=== PATIENT | female | born 1990 | race Caucasian/White ===

== ENCOUNTER → 2017-03-21 | Outpatient (CLI) | payer BC, OTHER ==
[~2017-03-21] MED LIST: DOXY100C2 PO; PREN1TAB39; SULF-109 PO
--- NOTE | 2017-03-21 08:02 | Diagnostic Imaging Report ---
PROCEDURE: US abdomen complete. TECHNIQUE: Multiple real-time grayscale images were obtained over the abdomen in various projections. INDICATION: Generalized abdominal pain. FINDINGS: There is a rather well circumscribed echogenic area within the medial aspect of the right lobe of the liver measuring 1.4 cm. The liver otherwise appears normal. The gallbladder and bile ducts are normal. Common duct measures 3 mm. Pancreas is normal. Spleen is mildly enlarged at 13 cm. Aorta and vena cava appear normal. The right kidney measures 10 x 4.5 x 6.1 cm. The left kidney measures 11.6 x 5.4 x 5 cm. There is no hydronephrosis. No calculi are demonstrated. There is no ascites. Color Doppler imaging shows normal portal hepatic flow. IMPRESSION: 1. Probable hemangioma within the right lobe of the liver measuring 1.4 cm. 2. Question of mild splenomegaly. Dictated by: Dictated on workstation # [id number]
== END ==
LOC: RAD 07:06
PROVIDERS: ATTEND Nurse Practitioner Family
DX: K76.9 Liver disease, unspecified (principal); R10.84 Generalized abdominal pain
CPT/HCPCS: 76700

== ENCOUNTER → 2017-05-25 | Outpatient (CLI) | payer OTHER ==
[~2017-05-25] MED LIST changes: +CATHETER FLUSH 10 ML SYR IV PRN
--- NOTE | 2017-05-25 12:24 | Diagnostic Imaging Report ---
INDICATION: Abdominal pain. Hepatobiliary scan. 4.63 mCi of Tc99m Choletec was given for the scan. A can of Ensure was given at 60 minutes into the study. There is homogeneous uptake of isotope throughout the liver. Cystic duct and common duct are both patent. The gallbladder ejection fraction is calculated at 94%. IMPRESSION: Normal hepatobiliary scan and gallbladder ejection. Dictated by: Dictated on workstation # [id number]
== END ==
LOC: CARD 09:25
PROVIDERS: ATTEND Nurse Practitioner Community Health
DX: R11.2 Nausea with vomiting, unspecified (principal)
CPT/HCPCS: 78227

== ENCOUNTER 2017-09-03 11:08 | Emergency (ER) | payer OTHER ==
[~2017-09-03] VITALS: Ht 152.4 cm; Wt 90.7 kg
[~2017-09-03 11:08] MED LIST changes: -CATHETER FLUSH 10 ML SYR IV PRN
[2017-09-03] MEDS ORDERED: NORG1TAB83 (11:40)
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
[2017-09-03 12:43] VITALS: BP 140/70
--- OUTSIDE RECORDS SUMMARY | 2017-09-03 12:59 | XMS REPORT ---
Author Author TANIA MURRELL Organization [facility] Address [address] [place] [address] Care Team Providers Care Financial Compliance Manager Name Role Phone MILO MURRELLNETTE Unavailable PROBLEMS Type Condition ICD9-CM Code QBR48-VN Code Onset Dates Condition Status SNOMED Code Problem Epigastric pain R10.13 Active 06950216 Problem Generalized abdominal pain R10.84 Active 605030996 Problem Allergic asthma, mild intermittent, uncomplicated J45.20 Active 107736431 Problem History of migraine headaches Z86.69 Active 614502902 Problem Dyspepsia R10.13 Active 973034760 Problem Dental examination Z01.20 Active 361094229 ALLERGIES No Information SOCIAL HISTORY Never Assessed PLAN OF CARE VITAL SIGNS MEDICATIONS Unknown Medications RESULTS No Results PROCEDURES Procedure Date Ordered Result Body Site TORADOL (IM) 60 MG/2ML (UP TO 15 MG) Oct 31, 2016 THER/PROPH/DIAG INJ, SC/IM Oct 31, 2016 PHENERGAN 50MG/ML Oct 31, 2016 IMMUNIZATIONS Vaccine Route Administration Date Status PHENERGAN 50MG/ML IM Intramuscular Oct 31, 2016 Administered TORADOL (IM) 60 MG/2ML (UP TO 15 MG) IM Intramuscular Oct 31, 2016 Administered MEDICAL (GENERAL) HISTORY Type Description Date Medical History idiopathic intracranial hypertension Surgical History section 2009 Surgical History right shoulder surgery (scope) 2005 Hospitalization History surgery
--- OUTSIDE RECORDS SUMMARY | 2017-09-03 12:59 | XMS REPORT ---
Author Author KARLY ENGEL Organization [employer] Address Unknown Phone Unavailable Care Team Providers Care Business Process Associate Name Role Phone KARLY ENGEL CP Unavailable Allergies, Adverse Reactions, Alerts Substance Reaction Event Type Cephalexin Info Not Available Drug Allergy Problems Problem Type Condition Code Onset Dates Condition Status Problem Wheezing 786.07 Active Problem Sinusitis 473.9 Active Problem Environmental allergies V15.09 Active Problem Pain in joint, shoulder region 719.41 Active Assessment Nonintractable migraine, unspecified migraine type G43.009 Active Medications Medication Code System Code Instructions Start Date End Date Status Dosage Fioricet [facility] [address]-91 50-325-40 MG Orally every 4 hrs 1 tablet as needed Albuterol Sulfate HFA [facility] [address]-02 108 (90 Base) MCG/ACT Inhalation every 4 hrs May 03, 2015 2 puffs as needed Nexplanon [facility] [address]-45 68 MG Subcutaneous not defined AcetaZOLAMIDE [facility] [address]-27 250 MG Orally 2 times a day 4 tablets Contrave [facility] [address]-16 8-90 MG Orally at hs for 7 days then 1tab bid for 7 days then 2 tabs in AM and 1 in PM for 7 days then 2 tabs bid Aug 05, 2015 1 tablet daily Procedures Procedure Coding System Code Date TORADOL (IM) 60 MG/2ML (UP TO 15 MG) CPT-4 J1885 Aug 26, 2015 THER/PROPH/DIAG INJ, SC/IM CPT-4 84777 Aug 26, 2015 Office Visit, Est Pt., Level 3 CPT-4 01049 Aug 26, 2015 Vital Signs Date/Time: Aug 26, 2015 Temperature 97 F Weight 188 lbs Height 64 in BMI 32.27 Index Blood Pressure Diastolic 86 mmHg Blood Pressure Systolic 126 mmHg Cardiac Monitoring Heart Rate 86 bpm Results No Known Results Summary Purpose [employer] Submission
--- OUTSIDE RECORDS SUMMARY | 2017-09-03 12:59 | XMS REPORT | Clinical Summary ---
Author Author [facility] Organization [facility] Address Unknown Phone Unavailable Care Team Providers Care Smooth Stucco Resurfacer Name Role Phone PCP Unavailable Source Comments Some departments are not documenting in the electronic medical record. If you do not see the information that you expected, contact Release of Information in the Health Information Management department at [phone] for further assistance in locating additional records.[facility] Allergies Active Allergy Reactions Severity Noted Date Comments Cephalexin RASH 06/29/2014 Current Medications Prescription Sig. Disp. Refills Start End Date Status Date NORGESTIMATE-ETHINYL Take by mouth. Active ESTRADIOL (ORTHO-CYCLEN (28) PO) acetaZOLAMIDE (DIAMOX) Take 4 Tabs by mouth 240 Tab 6 12/08/19 Active 250 mg tablet twice daily. 15 naltrexone-bupropion Take by mouth. Active (CONTRAVE) 8-90 mg TbER Butalbital-Acetaminophen- Take by mouth. 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 Sex Assigned at Date Recorded Not on file Last Filed Vital Signs Vital Sign Reading Time Taken Blood Pressure 120/84 11/18/2014 3:05 PM [employer] Pulse 88 11/18/2014 3:05 PM [employer] DIRECT[employer] Temperature 36.8 C (98.2 F) 07/10/2014 8:30 AM CDT Respiratory Rate - - Oxygen Saturation 98% 07/10/2014 10:00 AM CDT Inhaled Oxygen - - Concentration Weight 81.4 kg (179 lb 7.3 oz) 03/02/2016 3:03 PM CDT Height 167.6 cm (5' 6") 03/02/2016 3:03 PM CDT Body Mass Index 28.96 03/02/2016 3:03 PM CDT Plan of Treatment Health Maintenance Due Date Last Done Comments PHYSICAL (COMPREHENSIVE) 1995 EXAM PERTUSSIS VACCINE 1999 TETANUS VACCINE 2005 CERVICAL CANCER SCREENING 2009 INFLUENZA VACCINE 04/17/2017 Results Not on filefrom Last 3 Months
--- OUTSIDE RECORDS SUMMARY | 2017-09-03 12:59 | XMS REPORT ---
Author Author MELANIE COPELAND Organization [employer] Address Unknown Phone Unavailable Care Team Providers Care Guitar Player Name Role Phone MELANIE COPELAND CP Unavailable Allergies No Known Allergies Problems Problem Type Condition Code Onset Dates Condition Status Problem Wheezing 786.07 Active Problem Sinusitis 473.9 Active Problem Environmental allergies V15.09 Active Assessment Hepatitis A vaccination not up to date Z28.3 Active Problem Pain in joint, shoulder region 719.41 Active Assessment Need for meningococcus vaccine Z23 Active Medications No Known Medications Procedures Procedure Coding System Code Date MENINGOCOCCAL (MENVEO) CPT-4 63196 Jul 02, 2015 SINGLE IMMUNIZATION ADMIN CPT-4 62170 Jul 02, 2015 HEP A (ADULT) CPT-4 35289 Jul 02, 2015 IMMUNIZATION ADMIN, EACH ADD (please include units) CPT-4 73304 Jul 02, 2015 Results No Known Results Immunizations Vaccine Administration Date HEP A (ADULT) Jul 02, 2015 MENINGOCOCCAL (MENVEO) Jul 02, 2015 Summary Purpose [employer] Submission
--- OUTSIDE RECORDS SUMMARY | 2017-09-03 12:59 | XMS REPORT ---
Author Author MELANIE COPELAND [facility] Address [address] [place] [address] Care Team Providers Care Paper Products Supervisor Name Role Phone MELANIE COPELAND Unavailable PROBLEMS Type Condition ICD9-CM Code OKE78-BH Code Onset Dates Condition Status SNOMED Code Problem History of migraine headaches Z86.69 Active 440283378 Problem Seasonal allergic rhinitis, unspecified chronicity, unspecified trigger J30.2 Active 987163880 Problem Dyspepsia R10.13 Active 439445397 Problem Dental examination Z01.20 Active 076333132 Problem Allergic asthma, mild intermittent, uncomplicated J45.20 Active 664415524 Problem Epigastric pain R10.13 Active 74058344 Problem Generalized abdominal pain R10.84 Active 728248440 ALLERGIES Substance Reaction Event Type Date Status Cephalexin Unknown Drug Allergy January, Active SOCIAL HISTORY Never Assessed PLAN OF CARE Activity Details Follow Up prn Reason: VITAL SIGNS Height 64 in 2017-02-05 Weight 208.1 lbs 2017-02-05 Temperature 98.2 degrees Fahrenheit 2017-02-05 Heart Rate 76 bpm 2017-02-05 Respiratory Rate 20 2017-02-05 BMI 35.72 kg/m2 2017-02-05 Blood pressure systolic 116 mmHg 2017-02-05 Blood pressure diastolic 74 mmHg 2017-02-05 MEDICATIONS Medication Instructions Dosage Frequency Start Date End Date Duration Status Fioricet 50-325-40 MG Orally every 4 hrs 1 tablet as needed 4h Active Zofran ODT 8 MG Orally every 8 hrs 1 tablet on the tongue and allow to dissolve as needed for nausea 8h January, 10 days Active Nexplanon 68 MG Active Pepcid 20 mg Orally twice a day 1 tablet 12h January, 10 days Active Cyclobenzaprine HCl 10 mg Orally Once a day at nite 1 tablet Aug, Active Proventil HFA 108 (90 Base) MCG/ACT Inhalation every 4 hrs 2 puffs as needed 4h Active RESULTS No Results PROCEDURES No Known procedures IMMUNIZATIONS No Known Immunizations MEDICAL (GENERAL) HISTORY Type Description Date Medical History idiopathic intracranial hypertension Surgical History section 2009 Surgical History right shoulder surgery (scope) 2005 Hospitalization History surgery
--- OUTSIDE RECORDS SUMMARY | 2017-09-03 12:59 | XMS REPORT ---
Author Author KIEL KEYLA Organization [facility] Address [address] [place] [address] Care Team Providers Care Websphere Consultant Name Role Phone KEYLA DYSON Unavailable PROBLEMS Type Condition ICD9-CM Code MFA03-FM Code Onset Dates Condition Status SNOMED Code Problem Epigastric pain R10.13 Active 60966479 Problem Generalized abdominal pain R10.84 Active 011097793 Problem Allergic asthma, mild intermittent, uncomplicated J45.20 Active 858059595 Problem History of migraine headaches Z86.69 Active 849968601 Problem Dyspepsia R10.13 Active 982498004 Problem Dental examination Z01.20 Active 246300780 ALLERGIES Substance Reaction Event Type Date Status Cephalexin Unknown Drug Allergy Sep, Active SOCIAL HISTORY No smoking Hx information available PLAN OF CARE Activity Details Follow Up prn Reason: VITAL SIGNS Height 64 in 2016-10-02 Weight 194.8 lbs 2016-10-02 Temperature 97.9 degrees Fahrenheit 2016-10-02 Heart Rate 100 bpm 2016-10-02 Respiratory Rate 20 2016-10-02 BMI 33.43 kg/m2 2016-10-02 Blood pressure systolic 124 mmHg 2016-10-02 Blood pressure diastolic 88 mmHg 2016-10-02 MEDICATIONS Medication Instructions Dosage Frequency Start Date End Date Duration Status Nexplanon 68 MG Active Fioricet 50-325-40 MG Orally every 4 hrs 1 tablet as needed 4h Active Ibuprofen 800 MG Orally Three times a day 1 tablet 8h Sep,Oct 30 day(s) Active PredniSONE 10 mg Orally Once a day 4 tabs x 4 days, 3 tabs x 4 days, 2 tabs x 4 days, 1 tab x 1 days 24h Sep, Oct, 16 days Active Proventil HFA 108 (90 Base) MCG/ACT Inhalation every 4 hrs 2 puffs as needed 4h Active Cyclobenzaprine HCl 10 mg Orally Once a day at nite 1 tablet Aug, Active Tessalon Perles 100 MG Orally Three times a day 1 capsule as needed 8h Sep, Sep, 14 days Active RESULTS No Results PROCEDURES Procedure Date Ordered Related Diagnosis Body Site Office Visit, Est Pt., Level 3 Oct 02, 2016 IMMUNIZATIONS No Known Immunizations
--- OUTSIDE RECORDS SUMMARY | 2017-09-03 12:59 | XMS REPORT ---
Author ANA Ortega [facility] [employer] Address Unknown Phone Unavailable Care Team Providers Care Carriage Rider Name Role Phone ANA OSWALD CP Unavailable Allergies, Adverse Reactions, Alerts Substance Reaction Event Type Cephalexin Info Not Available Drug Allergy Problems Problem Type Condition Code Onset Dates Condition Status Problem History of migraine headaches Z86.69 Active Assessment Bronchitis J40 Active Problem Allergic asthma, mild intermittent, uncomplicated J45.20 Active Medications Medication Code System Code Instructions Start Date End Date Status Dosage Proventil HFA [facility] [address]-26 108 (90 Base) MCG/ACT Inhalation every 4 hrs 2 puffs as needed Zofran [facility] [address]-06 4 MG Orally 3 times a day as needed for nausea/ vomiting Sep 29, 2015 1 tablet Fioricet [facility] [address]-61 50-325-40 MG Orally every 4 hrs 1 tablet as needed Contrave [facility] [address]-02 8-90 MG Orally Aug 05, 2015 2 tabs twice a day Zithromax Z-Asael [facility] [address]-19 250 MG Orally Once a day Jul 11, 2016 Jul 16, 2016 2 tablets on the first day, then 1 tablet daily for 4 days Nexplanon [facility] [address]-36 68 MG Subcutaneous not defined Procedures Procedure Coding System Code Date Office Visit, Est Pt., Level 2 CPT-4 85577 Jul 11, 2016 Vital Signs Date/Time: Jul 11, 2016 Cardiac Monitoring Heart Rate 90 bpm Weight 186 lbs Height 64 in BMI 31.92 Index Blood Pressure Diastolic 78 mmHg Blood Pressure Systolic 100 mmHg Results No Known Results Summary Purpose [employer] Submission
--- OUTSIDE RECORDS SUMMARY | 2017-09-03 12:59 | XMS REPORT ---
Author Author DANO CHUN Organization [employer] Address Unknown Phone Unavailable Care Team Providers Care Surgical Technician Name Role Phone DANO CHUN CP Unavailable Allergies, Adverse Reactions, Alerts Substance Reaction Event Type Cephalexin Info Not Available Drug Allergy Problems Problem Type Condition Code Onset Dates Condition Status Problem Wheezing 786.07 Active Problem Sinusitis 473.9 Active Problem Environmental allergies V15.09 Active Problem Pain in joint, shoulder region 719.41 Active Assessment Dental examination Z01.20 Active Medications Medication Code System Code Instructions Start Date End Date Status Dosage AcetaZOLAMIDE [facility] [address]-17 250 MG Orally 2 times a day 4 tablets Nexplanon [facility] [address]-79 68 MG Subcutaneous not defined Albuterol Sulfate HFA [facility] [address]-19 108 (90 Base) MCG/ACT Inhalation every 4 hrs May 03, 2015 2 puffs as needed Procedures Procedure Coding System Code Date Billing Notes on claim CPT-4 EC109 Aug 02, 2015 [employer] Employee/Board adjustment CPT-4 [facility] Aug 02, 2015 [facility] SURFAC[facility] PRIMARY/PERM CPT-4 D2150 Aug 02, 2015 Vital Signs Date/Time: Aug 02, 2015 Blood Pressure Diastolic 83 mmHg Blood Pressure Systolic 126 mmHg Results No Known Results Summary Purpose [employer] Submission
--- OUTSIDE RECORDS SUMMARY | 2017-09-03 12:59 | XMS REPORT ---
Author Author JULIA MALIK Organization [facility] Address [address] [place] [address] Care Team Providers Care Rn Employee Health Name Role Phone JULIA MALIK Unavailable PROBLEMS Type Condition ICD9-CM Code [id number] Code Onset Dates Condition Status SNOMED Code Problem History of migraine headaches Z86.69 Active 547336888 Problem Seasonal allergic rhinitis, unspecified chronicity, unspecified trigger J30.2 Active 997609398 Problem Dyspepsia R10.13 Active 120701663 Problem Dental examination Z01.20 Active 335147964 Problem Allergic asthma, mild intermittent, uncomplicated J45.20 Active 121800853 Problem Epigastric pain R10.13 Active 64603170 Problem Generalized abdominal pain R10.84 Active 233999908 ALLERGIES No Information SOCIAL HISTORY Never Assessed PLAN OF CARE VITAL SIGNS MEDICATIONS Medication Instructions Dosage Frequency Start Date End Date Duration Status Zofran ODT 8 MG Orally every 8 hrs 1 tablet on the tongue and allow to dissolve as needed for nausea 8h January, 10 days Active RESULTS No Results PROCEDURES No Known procedures IMMUNIZATIONS No Known Immunizations MEDICAL (GENERAL) HISTORY Type Description Date Medical History idiopathic intracranial hypertension Surgical History section 2009 Surgical History right shoulder surgery (scope) 2006 Hospitalization History surgery
--- OUTSIDE RECORDS SUMMARY | 2017-09-03 12:59 | XMS REPORT ---
Author Author SERENA [facility] Address [address] [place] [address] Care Team Providers Care Structural Metal Fabricator Apprentice Name Role Phone SERENA MUSE Unavailable PROBLEMS Type Condition ICD9-CM Code [id number] Code Onset Dates Condition Status SNOMED Code Problem Epigastric pain R10.13 Active 39414302 Problem Generalized abdominal pain R10.84 Active 592360069 Problem Allergic asthma, mild intermittent, uncomplicated J45.20 Active 878627452 Problem History of migraine headaches Z86.69 Active 237845418 Problem Dyspepsia R10.13 Active 890741116 Problem Dental examination Z01.20 Active 186397604 ALLERGIES Substance Reaction Event Type Date Status Cephalexin Unknown Drug Allergy Oct, Active SOCIAL HISTORY Never Assessed PLAN OF CARE Activity Details Follow Up 6 Weeks Reason:JACINDA VITAL SIGNS Blood pressure systolic 134 mmHg 2016-10-27 Blood pressure diastolic 94 mmHg 2016-10-27 MEDICATIONS Medication Instructions Dosage Frequency Start Date End Date Duration Status Proventil HFA 108 (90 Base) MCG/ACT Inhalation every 4 hrs 2 puffs as needed 4h Active Ibuprofen 800 MG Orally Three times a day 1 tablet 8h Sep,Oct 30 day(s) Active Cyclobenzaprine HCl 10 mg Orally Once a day at nite 1 tablet Aug, Active Fioricet 50-325-40 MG Orally every 4 hrs 1 tablet as needed 4h Active Nexplanon 68 MG Active RESULTS No Results PROCEDURES Procedure Date Ordered Result Body Site INTRAORL-PERIAPICAL 1 FILM 26166 Oct 27, 2016 INTRAORL-PERIAPICAL EA ADD FILM Oct 27, 2016 [facility] Employee/Board adjustment Oct 27, 2016 Billing Notes on claim Oct 27, 2016 BITEWINGS - FOUR FILMS Oct 27, 2016 INTRAORL-PERIAPICAL EA ADD FILM Oct 27, 2016 TOPICAL FLUORIDE VARNISH Oct 27, 2016 PROPHYLAXIS - ADULT Oct 27, 2016 IMMUNIZATIONS No Known Immunizations MEDICAL (GENERAL) HISTORY Type Description Date Medical History idiopathic intracranial hypertension Surgical History section 2009 Surgical History right shoulder surgery (scope) 2005 Hospitalization History surgery
--- OUTSIDE RECORDS SUMMARY | 2017-09-03 12:59 | XMS REPORT ---
Author TANIA [facility] eClinicalWorks Address Unknown Phone Unavailable Care Team Providers Care Post Graduate Internship Name Role Phone TANIA MURRELL CP Unavailable Allergies, Adverse Reactions, Alerts Substance Reaction Event Type Cephalexin Info Not Available Drug Allergy Problems Problem Type Condition Code Onset Dates Condition Status Problem Wheezing 786.07 Active Problem Sinusitis 473.9 Active Problem Environmental allergies V15.09 Active Assessment Wheezing 786.07 Active Assessment Sinusitis 473.9 Active Problem Pain in joint, shoulder region 719.41 Active Assessment Environmental allergies V15.09 Active Medications Medication Code System Code Instructions Start Date End Date Status Dosage Nexplanon [facility] [address]-54 68 MG Subcutaneous not defined Azithromycin [facility] [address]-02 250 MG Orally Once a day May 03, 2015 May 13, 2015 2 tablets on the first day, then 1 tablet daily for 4 days PredniSONE [facility] [address]-01 10 MG Orally Once a day one tablet three times daily x 3, then 2 tablets daily x 3 then one daily x 3 with food or milk AcetaZOLAMIDE [facility] [address]-79 250 MG Orally 2 times a day 4 tablets Albuterol Sulfate HFA [facility] [address]-76 108 (90 Base) MCG/ACT Inhalation every 4 hrs May 03, 2015 2 puffs as needed Procedures Procedure Coding System Code Date Office Visit, Est Pt., Level 3 CPT-4 60182 May 03, 2015 Vital Signs Date/Time: May 03, 2015 Temperature 97.9 F Weight 185 lbs Height 64 in BMI 31.75 Index Blood Pressure Diastolic 74 mmHg Blood Pressure Systolic 118 mmHg Cardiac Monitoring Heart Rate 92 bpm Results No Known Results Summary Purpose eClinicalWorks Submission
--- OUTSIDE RECORDS SUMMARY | 2017-09-03 12:59 | XMS REPORT ---
Author Author MELANIE COPELAND [facility] Address [address] [place] [address] Care Team Providers Care Gardening Instructor Name Role Phone MELANIE COPELAND Unavailable PROBLEMS Type Condition ICD9-CM Code [id number] Code Onset Dates Condition Status SNOMED Code Problem History of migraine headaches Z86.69 Active 087675668 ALLERGIES Unknown Allergies SOCIAL HISTORY No smoking Hx information available PLAN OF CARE VITAL SIGNS MEDICATIONS Medication Instructions Dosage Frequency Start Date End Date Duration Status Proventil HFA 108 (90 Base) MCG/ACT Inhalation every 4 hrs 2 puffs as needed 4h Active RESULTS No Results PROCEDURES No Known procedures IMMUNIZATIONS No Known Immunizations
--- OUTSIDE RECORDS SUMMARY | 2017-09-03 12:59 | XMS REPORT ---
Author Author MELANIE COPELAND Organization [employer] Address Unknown Phone Unavailable Care Team Providers Care Outside Plant Cable Engineer Name Role Phone MELANIE COPELAND CP Unavailable Allergies, Adverse Reactions, Alerts Substance Reaction Event Type Cephalexin Info Not Available Drug Allergy Problems Problem Type Condition Code Onset Dates Condition Status Problem Wheezing 786.07 Active Problem Sinusitis 473.9 Active Problem Environmental allergies V15.09 Active Problem Pain in joint, shoulder region 719.41 Active Assessment Overweight E66.3 Active Medications Medication Code System Code Instructions Start Date End Date Status Dosage Nexplanon [facility] [address]-91 68 MG Subcutaneous not defined Albuterol Sulfate HFA [facility] [address]-27 108 (90 Base) MCG/ACT Inhalation every 4 hrs May 03, 2015 2 puffs as needed Meclizine HCl [facility] [address]-17 25 MG Orally 3 times a day as needed for dizziness Aug 31, 2015 0.5 -1 tablet as needed Contrave [facility] [address]-96 8-90 MG Orally Aug 05, 2015 2 tabs twice a day AcetaZOLAMIDE [facility] [address]-30 250 MG Orally once daily 2 tablets Fioricet [facility] [address]-85 50-325-40 MG Orally every 4 hrs 1 tablet as needed Procedures Procedure Coding System Code Date Office Visit, Est Pt., Level 2 CPT-4 28943 Oct 07, 2015 Vital Signs Date/Time: Oct 07, 2015 Temperature 98.0 F Weight 182.8 lbs Height 64 in BMI 31.37 Index Blood Pressure Diastolic 76 mmHg Blood Pressure Systolic 128 mmHg Cardiac Monitoring Heart Rate 100 bpm Results No Known Results Summary Purpose eClinicalWorks Submission
--- OUTSIDE RECORDS SUMMARY | 2017-09-03 13:00 | XMS REPORT ---
Author Author HEIDI ANTONIO Organization [employer] Address Unknown Phone Unavailable Care Team Providers Care Supervisor Paint Department Name Role Phone HEIDI ANTONIO CP Unavailable Allergies, Adverse Reactions, Alerts Substance Reaction Event Type Cephalexin Info Not Available Drug Allergy Problems Problem Type Condition Code Onset Dates Condition Status Assessment Headache, unspecified headache type R51 Active Assessment Allergic rhinitis, unspecified allergic rhinitis type J30.9 Active Problem Wheezing 786.07 Active Problem Sinusitis 473.9 Active Problem Environmental allergies V15.09 Active Assessment Nausea R11.0 Active Assessment Dizziness R42 Active Problem Pain in joint, shoulder region 719.41 Active Assessment Upper respiratory tract infection, unspecified type 465.9 Active Medications Medication Code System Code Instructions Start Date End Date Status Dosage Nexplanon [facility] [address]-89 68 MG Subcutaneous not defined Contrave [facility] [address]-54 8-90 MG Orally Aug 05, 2015 2 tabs twice a day AcetaZOLAMIDE [facility] [address]-45 250 MG Orally 2 times a day 2 tablets Zofran [facility] [address]-02 4 MG Orally 3 times a day as needed for nausea/ vomiting Sep 29, 2015 1 tablet Meclizine HCl [facility] [address]-88 25 MG Orally 3 times a day as needed for dizziness Aug 31, 2015 0.5 -1 tablet as needed Albuterol Sulfate HFA [facility] [address]-23 108 (90 Base) MCG/ACT Inhalation every 4 hrs May 03, 2015 2 puffs as needed Fioricet [facility] [address]-59 50-325-40 MG Orally every 4 hrs 1 tablet as needed Procedures Procedure Coding System Code Date Office Visit, Est Pt., Level 3 CPT-4 07827 Sep 29, 2015 Vital Signs Date/Time: Sep 29, 2015 Temperature 97.6 F Weight 185.8 lbs Height 64 in BMI 31.89 Index Blood Pressure Diastolic 78 mmHg Blood Pressure Systolic 112 mmHg Cardiac Monitoring Heart Rate 88 bpm Results No Known Results Summary Purpose eClinicalWorks Submission
--- OUTSIDE RECORDS SUMMARY | 2017-09-03 13:00 | XMS REPORT ---
Author Author MELANIE COPELAND Organization [employer] Address Unknown Phone Unavailable Care Team Providers Care Big Data Engineer Name Role Phone MELANIE COPELAND CP Unavailable Allergies, Adverse Reactions, Alerts Substance Reaction Event Type Cephalexin Info Not Available Drug Allergy Problems Problem Type Condition Code Onset Dates Condition Status Problem Wheezing 786.07 Active Problem Sinusitis 473.9 Active Problem Environmental allergies V15.09 Active Assessment Overweight E66.3 Active Problem Pain in joint, shoulder region 719.41 Active Assessment Vertigo R42 Active Medications Medication Code System Code Instructions Start Date End Date Status Dosage Albuterol Sulfate HFA [facility] [address]-62 108 (90 Base) MCG/ACT Inhalation every 4 hrs May 03, 2015 2 puffs as needed Contrave [facility] [address]-57 8-90 MG Orally Aug 05, 2015 2 tabs twice a day AcetaZOLAMIDE [facility] [address]-65 250 MG Orally 2 times a day 2 tablets Nexplanon [facility] [address]-34 68 MG Subcutaneous not defined Meclizine HCl [facility] [address]-54 25 MG Orally 3 times a day as needed for dizziness Aug 31, 2015 0.5 -1 tablet as needed Fioricet [facility] [address]-78 50-325-40 MG Orally every 4 hrs 1 tablet as needed Procedures Procedure Coding System Code Date Office Visit, Est Pt., Level 3 CPT-4 70097 Aug 31, 2015 Vital Signs Date/Time: Aug 31, 2015 Temperature 98.3 F Weight 188.0 lbs Height 64 in BMI 32.27 Index Blood Pressure Diastolic 88 mmHg Blood Pressure Systolic 130 mmHg Cardiac Monitoring Heart Rate 108 bpm Results No Known Results Summary Purpose eClinicalWorks Submission
--- OUTSIDE RECORDS SUMMARY | 2017-09-03 13:00 | XMS REPORT ---
Author Author MELANIE COPELAND Organization [employer] Address Unknown Phone Unavailable Care Team Providers Care Heater Helper Name Role Phone MELANIE COPELAND CP Unavailable Allergies No Known Allergies Problems Problem Type Condition Code Onset Dates Condition Status Problem Wheezing 786.07 Active Problem Sinusitis 473.9 Active Problem Environmental allergies V15.09 Active Problem Pain in joint, shoulder region 719.41 Active Medications Medication Code System Code Instructions Start Date End Date Status Dosage Fioricet [facility] [address]-57 50-325-40 MG Orally every 4 hrs 1 tablet as needed Results No Known Results Summary Purpose eClinicalWorks Submission
--- OUTSIDE RECORDS SUMMARY | 2017-09-03 13:00 | XMS REPORT ---
Author Author MELANIE COPELAND [facility] Address [address] [place] [address] Care Team Providers Care Car Detailer Name Role Phone MELANIE COPELAND Unavailable PROBLEMS Type Condition ICD9-CM Code APQ10-BD Code Onset Dates Condition Status SNOMED Code Problem Epigastric pain R10.13 Active 73670727 Problem Generalized abdominal pain R10.84 Active 723577893 Problem Allergic asthma, mild intermittent, uncomplicated J45.20 Active 634317282 Problem History of migraine headaches Z86.69 Active 026221869 Problem Dyspepsia R10.13 Active 217910149 Problem Dental examination Z01.20 Active 841212090 ALLERGIES Substance Reaction Event Type Date Status Cephalexin Unknown Drug Allergy Aug, Active SOCIAL HISTORY No smoking Hx information available PLAN OF CARE VITAL SIGNS Height 64 in 2016-09-12 Weight 197.5 lbs 2016-09-12 Temperature 98.3 degrees Fahrenheit 2016-09-12 Heart Rate 84 bpm 2016-09-12 Respiratory Rate 20 2016-09-12 BMI 33.90 kg/m2 2016-09-12 Blood pressure systolic 128 mmHg 2016-09-12 Blood pressure diastolic 78 mmHg 2016-09-12 MEDICATIONS Medication Instructions Dosage Frequency Start Date End Date Duration Status Fioricet 50-325-40 MG Orally every 4 hrs 1 tablet as needed 4h Active Contrave 8-90 MG 2 tabs twice a day Jul, 30 Active Nexplanon 68 MG Active Proventil HFA 108 (90 Base) MCG/ACT Inhalation every 4 hrs 2 puffs as needed 4h Active Zofran 4 MG Orally 3 times a day as needed for nausea/vomiting 1 tablet Sep, 10 days Active PredniSONE 20 mg Orally Once a day 2 tablets 24h Aug, Sep, 05 days Active Cyclobenzaprine HCl 10 mg Orally Once a day at nite 1 tablet Aug, Active RESULTS No Results PROCEDURES Procedure Date Ordered Related Diagnosis Body Site Office Visit, Est Pt., Level 3 Sep 12, 2016 IMMUNIZATIONS No Known Immunizations
--- OUTSIDE RECORDS SUMMARY | 2017-09-03 13:00 | XMS REPORT ---
Author Author MELANIE COPELAND Organization [employer] Address Unknown Phone Unavailable Care Team Providers Care Security Systems Specialist Name Role Phone MELANIE COPELAND CP Unavailable Allergies, Adverse Reactions, Alerts Substance Reaction Event Type Cephalexin Info Not Available Drug Allergy Problems Problem Type Condition Code Onset Dates Condition Status Problem History of migraine headaches Z86.69 Active Assessment Sebaceous cyst of labia N90.7 Active Problem Allergic asthma, mild intermittent, uncomplicated J45.20 Active Medications Medication Code System Code Instructions Start Date End Date Status Dosage Fioricet [facility] [address]-95 50-325-40 MG Orally every 4 hrs 1 tablet as needed Nexplanon [facility] [address]-70 68 MG Subcutaneous not defined Contrave [facility] [address]-33 8-90 MG Orally Aug 05, 2015 2 tabs twice a day Zofran [facility] [address]-51 4 MG Orally 3 times a day as needed for nausea/ vomiting Sep 29, 2015 1 tablet Proventil HFA [facility] [address]-51 108 (90 Base) MCG/ACT Inhalation every 4 hrs 2 puffs as needed Procedures Procedure Coding System Code Date Office Visit, Est Pt., Level 3 CPT-4 99221 Jul 24, 2016 Vital Signs Date/Time: Jul 24, 2016 Cardiac Monitoring Heart Rate 88 bpm Weight 188 lbs Height 64 in BMI 32.27 Index Blood Pressure Diastolic 80 mmHg Blood Pressure Systolic 124 mmHg Results No Known Results Summary Purpose eClinicalWorks Submission
--- OUTSIDE RECORDS SUMMARY | 2017-09-03 13:00 | XMS REPORT ---
Author TANIA Rock[facility] eClinicalWorks Address Unknown Phone Unavailable Care Team Providers Care Refrigeration Person Name Role Phone TANIA MURRELL Unavailable Allergies No Known Allergies Problems Problem Type Condition ICD-9 Code Onset Dates Condition Status Problem Wheezing 786.07 Active Problem Sinusitis 473.9 Active Problem Environmental allergies V15.09 Active Problem Pain in joint, shoulder region 719.41 Active Assessment Sinusitis 473.9 Active Medications Medication Code System Code Instructions Start Date End Date Status Dosage Amoxicillin [facility] [address]-26 500 MG Orally 3 times a day May 04, 2015 May 14, 2015 1 tablet Results No Known Results Summary Purpose eClinicalWorks Submission
--- OUTSIDE RECORDS SUMMARY | 2017-09-03 13:00 | XMS REPORT ---
Author Author MELANIE COPELAND Organization [employer] Address Unknown Phone Unavailable Care Team Providers Care Plasma Processing Centrifuge Operator Name Role Phone MELANIE COPELAND CP Unavailable Allergies, Adverse Reactions, Alerts Substance Reaction Event Type Cephalexin Info Not Available Drug Allergy Problems Problem Type Condition Code Onset Dates Condition Status Problem Environmental allergies V15.09 Active Problem Wheezing 786.07 Active Problem History of migraine headaches Z86.69 Active Assessment Seasonal allergic rhinitis due to pollen J30.1 Active Problem Sinusitis 473.9 Active Problem Pain in joint, shoulder region 719.41 Active Medications Medication Code System Code Instructions Start Date End Date Status Dosage Contrave [facility] [address]-46 8-90 MG Orally Aug 05, 2015 2 tabs twice a day Nexplanon [facility] [address]-66 68 MG Subcutaneous not defined Zofran [facility] [address]-78 4 MG Orally 3 times a day as needed for nausea/ vomiting Sep 29, 2015 1 tablet Proventil HFA [facility] [address]-98 108 (90 Base) MCG/ACT Inhalation every 4 hrs 2 puffs as needed Fioricet [facility] [address]-54 50-325-40 MG Orally every 4 hrs 1 tablet as needed Procedures Procedure Coding System Code Date Office Visit, Est Pt., Level 3 CPT-4 03472 May 29, 2016 Vital Signs Date/Time: May 29, 2016 Cardiac Monitoring Heart Rate 92 bpm Weight 187.7 lbs Height 64 in BMI 32.22 Index Blood Pressure Diastolic 82 mmHg Blood Pressure Systolic 120 mmHg Results No Known Results Summary Purpose eClinicalWorks Submission
--- OUTSIDE RECORDS SUMMARY | 2017-09-03 13:00 | XMS REPORT ---
Author Author FAITH KRISHNAN [facility] Address [address] [place] [address] Care Team Providers Care Technician Terminal And Repeater Name Role Phone FAITH KRISHNAN Unavailable PROBLEMS Type Condition ICD9-CM Code IPH78-KF Code Onset Dates Condition Status SNOMED Code Problem Epigastric pain R10.13 Active 38037320 Problem Generalized abdominal pain R10.84 Active 865163983 Problem Allergic asthma, mild intermittent, uncomplicated J45.20 Active 129184601 Problem History of migraine headaches Z86.69 Active 309010580 Problem Dyspepsia R10.13 Active 821828317 Problem Dental examination Z01.20 Active 808577335 ALLERGIES Unknown Allergies SOCIAL HISTORY No smoking Hx information available PLAN OF CARE VITAL SIGNS MEDICATIONS Unknown Medications RESULTS No Results PROCEDURES Procedure Date Ordered Related Diagnosis Body Site FLUARIX QUAD P-FREE 3 AND UP .50 2015Jun 08, 2016 SINGLE IMMUNIZATION ADMIN Jun 08, 2016 IMMUNIZATIONS Vaccine Route Administration Date Status FLUARIX QUAD P-FREE 3 AND UP .50 2015 IM Intramuscular Jun 08, 2016 Administered
--- OUTSIDE RECORDS SUMMARY | 2017-09-03 13:00 | XMS REPORT ---
Author Author URI HIGGINS Organization [employer] Address Unknown Phone Unavailable Care Team Providers Care Wrapper Stripper Name Role Phone URI HIGGINS CP Unavailable Allergies No Known Allergies Problems Problem Type Condition ICD-9 Code Onset Dates Condition Status Assessment Dental examination V72.2 Active Problem Pain in joint, shoulder region 719.41 Active Medications No Known Medications Procedures Procedure Coding System Code Date INTRAORL-PERIAPICAL 1 FILM 46258 CPT-4 D0220 April 08, 2015 INTRAORL-PERIAPICAL EA ADD FILM CPT-4 D0230 April 08, 2015 COMP ORAL EVALUATION - NEW/EST PT CPT-4 D0150 April 08, 2015 Billing Notes on claim CPT-4 EC109 April 08, 2015 [facility] Employee/Board adjustment CPT-4 [facility] April 08, 2015 BITEWINGS - FOUR FILMS CPT-4 D0274 April 08, 2015 INTRAORL-PERIAPICAL EA ADD FILM CPT-4 D0230 April 08, 2015 TOPICAL FLUORIDE VARNISH CPT-4 D1206 April 08, 2015 PROPHYLAXIS - ADULT CPT-4 D1110 April 08, 2015 Results No Known Results Summary Purpose eClinicalWorks Submission
--- OUTSIDE RECORDS SUMMARY | 2017-09-03 13:00 | XMS REPORT ---
Author Author MELANIE COPELAND Organization [employer] Address Unknown Phone Unavailable Care Team Providers Care Rubbish Collection Supervisor Name Role Phone MELANIE COPELAND CP Unavailable Allergies No Known Allergies Problems Problem Type Condition Code Onset Dates Condition Status Problem Wheezing 786.07 Active Problem Sinusitis 473.9 Active Problem Environmental allergies V15.09 Active Problem Pain in joint, shoulder region 719.41 Active Assessment Encounter for immunization Z23 Active Medications No Known Medications Procedures Procedure Coding System Code Date SINGLE IMMUNIZATION ADMIN CPT-4 17253 Jun 26, 2015 FLUARIX QUAD (3 & UP)-GSK-2014 CPT-4 09915 Jun 26, 2015 Results No Known Results Immunizations Vaccine Administration Date FLUARIX QUAD (3 & UP)-GSK-2014Jun 26, 2015 Summary Purpose eClinicalWorks Submission
--- OUTSIDE RECORDS SUMMARY | 2017-09-03 13:00 | XMS REPORT ---
Author Author MELANIE COPELAND Organization [employer] Address Unknown Phone Unavailable Care Team Providers Care Supervisor Endless Track Vehicle Name Role Phone MELANIE COPELAND CP Unavailable Allergies, Adverse Reactions, Alerts Substance Reaction Event Type Cephalexin Info Not Available Drug Allergy Problems Problem Type Condition Code Onset Dates Condition Status Problem Wheezing 786.07 Active Problem Sinusitis 473.9 Active Problem Environmental allergies V15.09 Active Assessment Nonintractable migraine, unspecified migraine type G43.009 Active Problem Pain in joint, shoulder region 719.41 Active Assessment Overweight E66.3 Active Medications Medication Code System Code Instructions Start Date End Date Status Dosage Contrave [facility] [address]-76 8-90 MG Orally at hs for 7 days then 1tab bid for 7 days then 2 tabs in AM and 1 in PM for 7 days then 2 tabs bid Aug 05, 2015 1 tablet daily Fioricet [facility] [address]-77 50-325-40 MG Orally every 4 hrs 1 tablet as needed AcetaZOLAMIDE [facility] [address]-23 250 MG Orally 2 times a day 4 tablets Nexplanon [facility] [address]-81 68 MG Subcutaneous not defined Albuterol Sulfate HFA [facility] [address]-31 108 (90 Base) MCG/ACT Inhalation every 4 hrs May 03, 2015 2 puffs as needed Procedures Procedure Coding System Code Date Office Visit, Est Pt., Level 3 CPT-4 27495 Aug 05, 2015 Vital Signs Date/Time: Aug 05, 2015 Temperature 97.6 F Weight 195 lbs Height 64 in BMI 33.47 Index Blood Pressure Diastolic 86 mmHg Blood Pressure Systolic 138 mmHg Cardiac Monitoring Heart Rate 100 bpm Results No Known Results Summary Purpose eClinicalWorks Submission
--- OUTSIDE RECORDS SUMMARY | 2017-09-03 13:01 | XMS REPORT | Continuity of Care Document ---
Author Author [facility] Organization [facility] Address Unknown Phone Unavailable Allergies Active Description Code Type Severity Reaction Onset Reported/Identified Relationship to Patient Clinical Status Yes cephalothin [id number] Drug Allergy Unknown N/A 12/04/2006 Yes Cephalexin Drug Allergy N/A N/A 07/24/2013 Yes cephalexin [id number] Drug Allergy Unknown N/A 05/25/2017 Medications There is no data. Problems Date Dx Coded Attending Type Code Diagnosis Diagnosed By 01/01/2012 Ot 614.9 FEM PELV INFLAM DIS NOS 01/01/2012 Ot 625.9 FEM GENITAL SYMPTOMS NOS 07/24/2013 KRISHNAN DO, FAITH K 788.1 DYSURIA 07/24/2013 ANDRADE HERMAN LARRY R 788.1 DYSURIA 07/24/2013 KRISHNAN DO, FAITH K 788.1 DYSURIA 07/24/2013 ANDRADE HERMAN, LARRY R 788.1 DYSURIA 07/24/2013 KRISHNAN DO, FAITH K 788.1 DYSURIA 07/24/2013 ANDRADE HERMAN LARRY R 788.1 DYSURIA 07/24/2013 KRISHNAN DO, FAITH K 788.1 DYSURIA 07/24/2013 KRISHNAN DO, FAITH K 788.1 DYSURIA 07/24/2013 JULEE WATER INSPECTOR, CLARE A 788.1 DYSURIA 07/24/2013 JULEE WATER INSPECTOR, CLARE A 788.1 DYSURIA 07/24/2013 KRISHNAN DO, FAITH K 788.1 DYSURIA 07/24/2013 KRISHNAN DO, FAITH K 788.1 DYSURIA 07/24/2013 ANDRADE HERMAN LARRY R 788.1 DYSURIA 07/24/2013 KRISHNAN DO, FAITH K 788.1 DYSURIA 07/24/2013 ANDRADE HERMAN LARRY R 788.1 DYSURIA 07/24/2013 ANDRADE HERMAN LARRY R 788.1 DYSURIA 07/24/2013 ANDRADE WATER INSPECTOR, LARRY R 788.1 DYSURIA 09/12/2013 KRISHNAN DO, FAITH K 368.10 VISUAL DISTURBANCE UNSPECIFIED 09/12/2013 KRISHNAN DO, FAITH K 784.0 HEADACHE 09/12/2013 ANDRADE WATER INSPECTOR, LARRY R 368.10 VISUAL DISTURBANCE UNSPECIFIED 09/12/2013 ANDRADE WATER INSPECTOR, LARRY R 784.0 HEADACHE 09/12/2013 KRISHNAN DO, FAITH K 368.10 VISUAL DISTURBANCE UNSPECIFIED 09/12/2013 KRISHNAN DO, FAITH K 784.0 HEADACHE 09/12/2013 ANDRADE WATER INSPECTOR, LARRY R 368.10 VISUAL DISTURBANCE UNSPECIFIED 09/12/2013 ANDRADE WATER INSPECTOR, LARRY R 784.0 HEADACHE 09/12/2013 KRISHNAN DO, FAITH K 368.10 VISUAL DISTURBANCE UNSPECIFIED 09/12/2013 KRISHNAN DO, FAITH K 784.0 HEADACHE 09/12/2013 ANDRADE WATER INSPECTOR, LARRY R 368.10 VISUAL DISTURBANCE UNSPECIFIED 09/12/2013 ANDRADE WATER INSPECTOR, LARRY R 784.0 HEADACHE 09/12/2013 KRISHNAN DO, FAITH K 368.10 VISUAL DISTURBANCE UNSPECIFIED 09/12/2013 KRISHNAN DO, FAITH K 784.0 HEADACHE 09/12/2013 KRISHNAN DO, FAITH K 368.10 VISUAL DISTURBANCE UNSPECIFIED 09/12/2013 KRISHNAN DO, FAITH K 784.0 HEADACHE 09/12/2013 JULEE WATER INSPECTOR, CLARE A 368.10 VISUAL DISTURBANCE UNSPECIFIED 09/12/2013 JULEE WATER INSPECTOR, CLARE A 784.0 HEADACHE 09/12/2013 JULEE WATER INSPECTOR, CLARE A 368.10 VISUAL DISTURBANCE UNSPECIFIED 09/12/2013 JULEE WATER INSPECTOR, CLARE A 784.0 HEADACHE 09/12/2013 KRISHNAN DO, FAITH K 368.10 VISUAL DISTURBANCE UNSPECIFIED 09/12/2013 KRISHNAN DO, FAITH K 784.0 HEADACHE 09/12/2013 KRISHNAN DO, FAITH K 368.10 VISUAL DISTURBANCE UNSPECIFIED 09/12/2013 KRISHNAN DO, FAITH K 784.0 HEADACHE 09/12/2013 ANDRADE WATER INSPECTOR, LARRY R 368.10 VISUAL DISTURBANCE UNSPECIFIED 09/12/2013 ANDRADE WATER INSPECTOR, LARRY R 784.0 HEADACHE 09/12/2013 KRISHNAN DO, FAITH K 368.10 VISUAL DISTURBANCE UNSPECIFIED 09/12/2013 KRISHNAN DO, FAITH K 784.0 HEADACHE 09/12/2013 ANDRADE WATER INSPECTOR, LARRY R 368.10 VISUAL DISTURBANCE UNSPECIFIED 09/12/2013 ANDRADE WATER INSPECTOR, LARRY R 784.0 HEADACHE 09/12/2013 ANDRADE WATER INSPECTOR, LARRY R 368.10 VISUAL DISTURBANCE UNSPECIFIED 09/12/2013 ANDRADE WATER INSPECTOR, LARRY R 784.0 HEADACHE 09/12/2013 ANDRADE WATER INSPECTOR, LARRY R 368.10 VISUAL DISTURBANCE UNSPECIFIED 09/12/2013 ANDRADE WATER INSPECTOR, LARRY R 784.0 HEADACHE 09/19/2013 LARRY ZAFAR R WATER INSPECTOR Ot 348.2 PSEUDOTUMOR CEREBRI 09/19/2013 LARRY ZAFAR R WATER INSPECTOR Ot 368.9 VISUAL DISTURBANCE NOS 09/19/2013 LARRY ZAFAR R WATER INSPECTOR Ot 784.0 HEADACHE 09/25/2013 KRISHNAN DO, FAITH K 377.00 PAPILLEDEMA UNSPECIFIED 09/25/2013 ANDRADE WATER INSPECTOR, LARRY R 377.00 PAPILLEDEMA UNSPECIFIED 09/25/2013 KRISHNAN DO, FAITH K 377.00 PAPILLEDEMA UNSPECIFIED 09/25/2013 ANDRADE WATER INSPECTOR, LARRY R 377.00 PAPILLEDEMA UNSPECIFIED 09/25/2013 KRISHNAN DO, FAITH K 377.00 PAPILLEDEMA UNSPECIFIED 09/25/2013 KRISHNAN DO, FAITH K 377.00 PAPILLEDEMA UNSPECIFIED 09/25/2013 JULEE WATER INSPECTOR, CLARE A 377.00 PAPILLEDEMA UNSPECIFIED 09/25/2013 JULEE WATER INSPECTOR, CLARE A 377.00 PAPILLEDEMA UNSPECIFIED 09/25/2013 KRISHNAN DO, FAITH K 377.00 PAPILLEDEMA UNSPECIFIED 09/25/2013 KRISHNAN DO, FAITH K 377.00 PAPILLEDEMA UNSPECIFIED 09/25/2013 ANDRADE WATER INSPECTOR, LARRY R 377.00 PAPILLEDEMA UNSPECIFIED 09/25/2013 KRISHNAN DO, FAITH K 377.00 PAPILLEDEMA UNSPECIFIED 09/25/2013 ANDRADE WATER INSPECTOR, LARRY R 377.00 PAPILLEDEMA UNSPECIFIED 09/25/2013 ANDRADE WATER INSPECTOR, LARRY R 377.00 PAPILLEDEMA UNSPECIFIED 09/25/2013 ANDRADE WATER INSPECTOR, LARRY R 377.00 PAPILLEDEMA UNSPECIFIED 10/03/2013 KRISHNAN DO, AFITH K V04.81 FLU SHOT 10/03/2013 ANDRADE WATER INSPECTOR, LARRY R V04.81 FLU SHOT 10/03/2013 KRISHNAN DO, FAITH K V04.81 FLU SHOT 10/03/2013 ANDRADE WATER INSPECTOR, LARRY R V04.81 FLU SHOT 10/03/2013 KRISHNAN DO, FAITH K V04.81 FLU SHOT 10/03/2013 KRISHNAN DO, FAITH K V04.81 FLU SHOT 10/03/2013 JULEE WATER INSPECTOR, CLARE A V04.81 FLU SHOT 10/03/2013 JULEE WATER INSPECTOR, CLARE A V04.81 FLU SHOT 10/03/2013 KRISHNAN DO, FAITH K V04.81 FLU SHOT 10/03/2013 KRISHNAN DO, FAITH K V04.81 FLU SHOT 10/03/2013 ANDRADE WATER INSPECTOR, LARRY R V04.81 FLU SHOT 10/03/2013 KRISHNAN DO, FAITH K V04.81 FLU SHOT 10/03/2013 ANDRADE WATER INSPECTOR, LARRY R V04.81 FLU SHOT 10/03/2013 ANDRADE WATER INSPECTOR, LARRY R V04.81 FLU SHOT 10/03/2013 ANDRADE WATER INSPECTOR, LARRY R V04.81 FLU SHOT 10/22/2013 ANDRADE WATER INSPECTOR, LARRY R 789.09 ABDOMINAL PAIN OTHER SPECIFIED SITE 10/22/2013 KRISHNAN DO, FAITH K 789.09 ABDOMINAL PAIN OTHER SPECIFIED SITE 10/22/2013 ANDRADE WATER INSPECTOR, LARRY R 789.09 ABDOMINAL PAIN OTHER SPECIFIED SITE 10/22/2013 KRISHNAN DO, FAITH K 789.09 ABDOMINAL PAIN OTHER SPECIFIED SITE 10/22/2013 KRISHNAN DO, FAITH K 789.09 ABDOMINAL PAIN OTHER SPECIFIED SITE 10/22/2013 JULEE WATER INSPECTOR, CLARE A 789.09 ABDOMINAL PAIN OTHER SPECIFIED SITE 10/22/2013 JULEE WATER INSPECTOR, CLARE A 789.09 ABDOMINAL PAIN OTHER SPECIFIED SITE 10/22/2013 KRISHNAN DO, FAITH K 789.09 ABDOMINAL PAIN OTHER SPECIFIED SITE 10/22/2013 KRISHNAN DO, FAITH K 789.09 ABDOMINAL PAIN OTHER SPECIFIED SITE 10/22/2013 ANDRADE WATER INSPECTOR, LARRY R 789.09 ABDOMINAL PAIN OTHER SPECIFIED SITE 10/22/2013 KRISHNAN DO, FAITH K 789.09 ABDOMINAL PAIN OTHER SPECIFIED SITE 10/22/2013 ANDRADE WATER INSPECTOR, LARRY R 789.09 ABDOMINAL PAIN OTHER SPECIFIED SITE 10/22/2013 ANDRADE WATER INSPECTOR, LARRY R 789.09 ABDOMINAL PAIN OTHER SPECIFIED SITE 10/22/2013 ANDRADE WATER INSPECTOR, LARRY R 789.09 ABDOMINAL PAIN OTHER SPECIFIED SITE 12/24/2013 ANDRADE WATER INSPECTOR, LARRY R 462 ACUTE PHARYNGITIS 12/24/2013 ANDRADE WATER INSPECTOR, LARRY R 786.2 COUGH 12/24/2013 KRISHNAN DO, FAITH K 462 ACUTE PHARYNGITIS 12/24/2013 KRISHNAN DO, FAITH K 786.2 COUGH 12/24/2013 KRISHNAN DO, FAITH K 462 ACUTE PHARYNGITIS 12/24/2013 KRISHNAN DO, FAITH K 786.2 COUGH 12/24/2013 JULEE WATER INSPECTOR, CLARE A 462 ACUTE PHARYNGITIS 12/24/2013 JULEE WATER INSPECTOR, CLARE A 786.2 COUGH 12/24/2013 JULEE WATER INSPECTOR, CLARE A 462 ACUTE PHARYNGITIS 12/24/2013 JULEE WATER INSPECTOR, CLARE A 786.2 COUGH 12/24/2013 KRISHNAN DO, FAITH K 462 ACUTE PHARYNGITIS 12/24/2013 KRISHNAN DO, FAITH K 786.2 COUGH 12/24/2013 KRISHNAN DO, FAITH K 462 ACUTE PHARYNGITIS 12/24/2013 KRISHNAN DO, FAITH K 786.2 COUGH 12/24/2013 ANDRADE WATER INSPECTOR, LARRY R 462 ACUTE PHARYNGITIS 12/24/2013 ANDRADE WATER INSPECTOR, LARRY R 786.2 COUGH 12/24/2013 KRISHNAN DO, FAITH K 462 ACUTE PHARYNGITIS 12/24/2013 KRISHNAN DO, FAITH K 786.2 COUGH 12/24/2013 ANDRADE WATER INSPECTOR, LARRY R 462 ACUTE PHARYNGITIS 12/24/2013 ANDRADE WATER INSPECTOR, LARRY R 786.2 COUGH 12/24/2013 ANDRADE WATER INSPECTOR, LARRY R 462 ACUTE PHARYNGITIS 12/24/2013 ANDRADE WATER INSPECTOR, LARRY R 786.2 COUGH 12/24/2013 ANDRADE WATER INSPECTOR, LARRY R 462 ACUTE PHARYNGITIS 12/24/2013 ANDRADE WATER INSPECTOR, LARRY R 786.2 COUGH 01/20/2014 KRISHNAN DO, FAITH K 782.1 RASH 01/20/2014 KRISHNAN DO, FAITH K 782.1 RASH 01/20/2014 JULEE WATER INSPECTOR, CLARE A 782.1 RASH 01/20/2014 JULEE WATER INSPECTOR, CLARE A 782.1 RASH 01/20/2014 KRISHNAN DO, FAITH K 782.1 RASH 01/20/2014 KRISHNAN DO, FAITH K 782.1 RASH 01/20/2014 ANDRADE WATER INSPECTOR, LARRY R 782.1 RASH 01/20/2014 KRISHNAN DO, FAITH K 782.1 RASH 01/20/2014 ANDRADE WATER INSPECTOR, LARRY R 782.1 RASH 01/20/2014 ANDRADE WATER INSPECTOR, LARRY R 782.1 RASH 01/20/2014 ANDRADE WATER INSPECTOR, LARRY R 782.1 RASH 02/20/2014 KRISHNAN DO, FAITH K 461.9 SINUSITIS ACUTE 02/20/2014 JUDITH LADD APRNIDI A 461.9 SINUSITIS ACUTE 02/20/2014 CLARE LADD APRN A 461.9 SINUSITIS ACUTE 02/20/2014 KRISHNAN DOSCOTTA K 461.9 SINUSITIS ACUTE 02/20/2014 KRISHNAN DO, FAITH K 461.9 SINUSITIS ACUTE 02/20/2014 ANDRADE WATER INSPECTOR, LARRY R 461.9 SINUSITIS ACUTE 02/20/2014 KRISHNAN DO, FAITH K 461.9 SINUSITIS ACUTE 02/20/2014 ANDRADE WATER INSPECTOR, LARRY R 461.9 SINUSITIS ACUTE 02/20/2014 ANDRADE WATER INSPECTOR, LARRY R 461.9 SINUSITIS ACUTE 02/20/2014 ANDRADE WATER INSPECTOR, LARRY R 461.9 SINUSITIS ACUTE 03/24/2014 CLARE LADD APRN A V17.49 REPORTED FAMILY HISTORY OF HEART DISEASE 03/24/2014 CLARE LADD APRN A V70.0 ROUTINE GENERAL MEDICAL EXAMINATION AT A HEALTH CARE FACILITY 03/24/2014 CLARE LADD APRN V17.49 REPORTED FAMILY HISTORY OF HEART DISEASE 03/24/2014 CLARE LADD APRN A V70.0 ROUTINE GENERAL MEDICAL EXAMINATION AT A HEALTH CARE FACILITY 03/24/2014 FAITH KRISHNAN DO K V17.49 REPORTED FAMILY HISTORY OF HEART DISEASE 03/24/2014 KRISHNAN DOSCOTTA K V70.0 ROUTINE GENERAL MEDICAL EXAMINATION AT A HEALTH CARE FACILITY 03/24/2014 KRISHNAN DOSCOTTA K V17.49 REPORTED FAMILY HISTORY OF HEART DISEASE 03/24/2014 KRISHNAN SCOTT PANTOJAA K V70.0 ROUTINE GENERAL MEDICAL EXAMINATION AT A HEALTH CARE FACILITY 03/24/2014 MARISELA ZAFAR APRNINA R V17.49 REPORTED FAMILY HISTORY OF HEART DISEASE 03/24/2014 MRAISELA ZAFAR APRNINA R V70.0 ROUTINE GENERAL MEDICAL EXAMINATION AT A HEALTH CARE FACILITY 03/24/2014 FAITH KRISHNAN DO K V17.49 REPORTED FAMILY HISTORY OF HEART DISEASE 03/24/2014 KRISHNAN DOSCOTTA K V70.0 ROUTINE GENERAL MEDICAL EXAMINATION AT A HEALTH CARE FACILITY 03/24/2014 MARISELA ZAFAR APRNINA R V17.49 REPORTED FAMILY HISTORY OF HEART DISEASE 03/24/2014 ANDRADE HERMAN LARRY R V70.0 ROUTINE GENERAL MEDICAL EXAMINATION AT A HEALTH CARE FACILITY 03/24/2014 MARISELA ZAFAR APRNINA R V17.49 REPORTED FAMILY HISTORY OF HEART DISEASE 03/24/2014 MARISELA ZAFAR APRNINA R V70.0 ROUTINE GENERAL MEDICAL EXAMINATION AT A HEALTH CARE FACILITY 03/24/2014 MARISELA ZAFAR APRNINA R V17.49 REPORTED FAMILY HISTORY OF HEART DISEASE 03/24/2014 MARISELA ZAFAR APRNINA R V70.0 ROUTINE GENERAL MEDICAL EXAMINATION AT A HEALTH CARE FACILITY 04/06/2014 CLARE LADD APRN A V25.01 CONTRACEPTION - ORAL CONTRACEPTION 04/06/2014 CLARE LADD APRN V25.01 CONTRACEPTION - ORAL CONTRACEPTION 04/06/2014 FAITH KRISHNAN DO K V25.01 CONTRACEPTION - ORAL CONTRACEPTION 04/06/2014 SCOTT KRISHNAN DOA K V25.01 CONTRACEPTION - ORAL CONTRACEPTION 04/06/2014 ANDRADE HERMAN LARRY R V25.01 CONTRACEPTION - ORAL CONTRACEPTION 04/06/2014 FAITH KRISHNAN DO K V25.01 CONTRACEPTION - ORAL CONTRACEPTION 04/06/2014 ANDRADE HERMAN LARRY R V25.01 CONTRACEPTION - ORAL CONTRACEPTION 04/06/2014 MARISELA ZAFAR APRNINA R V25.01 CONTRACEPTION - ORAL CONTRACEPTION 04/06/2014 MARISELA ZAFAR APRNINA R V25.01 CONTRACEPTION - ORAL CONTRACEPTION 04/20/2014 CLARE LADD APRN V25.12 IUD REMOVAL 04/20/2014 CLARE LADD APRN V72.31 SCREW MACHINE ADJUSTER AUTOMATIC EXAM, ROUTINE 04/20/2014 CLARE LADD APRN V76.10 BREAST CANCER SCREENING 04/20/2014 CLARE LADD APRN V76.2 CERVICAL CANCER SCREENING (PAP SMEAR) 04/20/2014 KRISHNAN SCOTT PANTOJAA K V25.12 IUD REMOVAL 04/20/2014 KRISHNAN SCOTT PANTOJAA K V72.31 SCREW MACHINE ADJUSTER AUTOMATIC EXAM, ROUTINE 04/20/2014 KRISHNAN SCOTT PANTOJAA K V76.10 BREAST CANCER SCREENING 04/20/2014 KRISHNAN DO FAITH K V76.2 CERVICAL CANCER SCREENING (PAP SMEAR) 04/20/2014 KRISHNAN SCOTT PANTOJAA K V25.12 IUD REMOVAL 04/20/2014 SCOTT KRISHNAN DOA K V72.31 SCREW MACHINE ADJUSTER AUTOMATIC EXAM, ROUTINE 04/20/2014 KRISHNAN SCOTT PANTOJAA K V76.10 BREAST CANCER SCREENING 04/20/2014 KRISHNAN SCOTT PANTOJAA K V76.2 CERVICAL CANCER SCREENING (PAP SMEAR) 04/20/2014 ANDRADE WATER INSPECTOR, LARRY R V25.12 IUD REMOVAL 04/20/2014 ANDRADE WATER INSPECTOR, LARRY R V72.31 SCREW MACHINE ADJUSTER AUTOMATIC EXAM, ROUTINE 04/20/2014 ANDRADE WATER INSPECTOR, LARRY R V76.10 BREAST CANCER SCREENING 04/20/2014 ANDRADE WATER INSPECTOR, LARRY R V76.2 CERVICAL CANCER SCREENING (PAP SMEAR) 04/20/2014 FAITH KRISHNAN DO K V25.12 IUD REMOVAL 04/20/2014 SCOTT KRISHNAN DOA K V72.31 SCREW MACHINE ADJUSTER AUTOMATIC EXAM, ROUTINE 04/20/2014 SCOTT KRISHNAN DOA K V76.10 BREAST CANCER SCREENING 04/20/2014 SCOTT KRISHNAN DOA K V76.2 CERVICAL CANCER SCREENING (PAP SMEAR) 04/20/2014 ANDRADE WATER INSPECTOR, LARRY R V25.12 IUD REMOVAL 04/20/2014 ANDRADE WATER INSPECTOR, LARRY R V72.31 SCREW MACHINE ADJUSTER AUTOMATIC EXAM, ROUTINE 04/20/2014 ANDRADE WATER INSPECTOR, LARRY R V76.10 BREAST CANCER SCREENING 04/20/2014 ANDRADE WATER INSPECTOR, LARRY R V76.2 CERVICAL CANCER SCREENING (PAP SMEAR) 04/20/2014 ANDRADE WATER INSPECTOR, LARRY R V25.12 IUD REMOVAL 04/20/2014 ANDRADE WATER INSPECTOR, LARRY R V72.31 SCREW MACHINE ADJUSTER AUTOMATIC EXAM, ROUTINE 04/20/2014 ANDRADE WATER INSPECTOR, LARRY R V76.10 BREAST CANCER SCREENING 04/20/2014 ANDRADE WATER INSPECTOR, LARRY R V76.2 CERVICAL CANCER SCREENING (PAP SMEAR) 04/20/2014 ANDRADE WATER INSPECTOR, LARRY R V25.12 IUD REMOVAL 04/20/2014 ANDRADE WATER INSPECTOR, LARRY R V72.31 SCREW MACHINE ADJUSTER AUTOMATIC EXAM, ROUTINE 04/20/2014 ANDRADE WATER INSPECTOR, LARRY R V76.10 BREAST CANCER SCREENING 04/20/2014 ANDRADE WATER INSPECTOR, LARRY R V76.2 CERVICAL CANCER SCREENING (PAP SMEAR) 07/20/2014 FAITH KRISHNAN DO K 477.9 RHINITIS 07/20/2014 ANDRADE WATER INSPECTOR, LARRY R 477.9 RHINITIS 07/20/2014 FAITH KRISHNAN DO K 477.9 RHINITIS 07/20/2014 ANDRADE WATER INSPECTOR, LARRY R 477.9 RHINITIS 07/20/2014 ANDRADE WATER INSPECTOR, LARRY R 477.9 RHINITIS 07/20/2014 ANDRADE WATER INSPECTOR, LARRY R 477.9 RHINITIS 08/19/2014 ANDRADE WATER INSPECTOR, LARRY R 462 ACUTE PHARYNGITIS 08/19/2014 ANDRADE WATER INSPECTOR, LARRY R 786.2 COUGH 08/19/2014 FAITH KRISHNAN DO K 462 ACUTE PHARYNGITIS 08/19/2014 EULOGIO PANTOJA FAITH K 786.2 COUGH 08/19/2014 ANDRADE WATER INSPECTOR, LARRY R 462 ACUTE PHARYNGITIS 08/19/2014 ANDRADE WATER INSPECTOR, LARRY R 786.2 COUGH 08/19/2014 ANDRADE WATER INSPECTOR, LARRY R 462 ACUTE PHARYNGITIS 08/19/2014 ANDRADE WATER INSPECTOR, LARRY R 786.2 COUGH 08/19/2014 ANDRADE WATER INSPECTOR, LARRY R 462 ACUTE PHARYNGITIS 08/19/2014 ANDRADE WATER INSPECTOR, LARRY R 786.2 COUGH 09/01/2014 EULOGIO PANTOJA FAITH K 719.45 PAIN IN JOINT INVOLVING PELVIC REGION AND THIGH 09/01/2014 ANDRADE WATER INSPECTOR, LARRY R 719.45 PAIN IN JOINT INVOLVING PELVIC REGION AND THIGH 09/01/2014 ANDRADE WATER INSPECTOR, LARRY R 719.45 PAIN IN JOINT INVOLVING PELVIC REGION AND THIGH 09/01/2014 ANDRADE WATER INSPECTOR, LARRY R 719.45 PAIN IN JOINT INVOLVING PELVIC REGION AND THIGH 10/20/2014 ANDRADE WATER INSPECTOR LARRY R 729.5 PAIN IN LIMB 10/20/2014 ANDRADE WATER INSPECTOR, LARRY R 729.5 PAIN IN LIMB 11/24/2014 MARISELA ZAFAR APRNINA R 278.02 OVERWEIGHT 11/24/2014 ANDRADE HERMAN LARRY R 719.41 PAIN IN JOINT INVOLVING SHOULDER REGION 03/15/2017 BJ BAH OD Ot 377.00 PAPILLEDEMA NOS 03/15/2017 BJ BAH OD Ot 377.00 PAPILLEDEMA NOS 04/23/2017 ELIZABETHVickiPENELOPE Vicki DIRECTOR OF COMMUNITY CENTER Ot K76.9 LIVER DISEASE, UNSPECIFIED 04/23/2017 PENELOPE ALANIS [facility] Ot R10.84 GENERALIZED ABDOMINAL PAIN 05/28/2017 MELANIE COPELAND DIRECTOR OF COMM[facility] C[facility] Ot R11.2 NAUSEA WITH VOMITING, UNSPECIFIED 06/22/2017 MELANIE COPELAND DIRECT[facility] OF COMM[facility] C[facility] Ot R11.2 NAUSEA WITH VOMITING, UNSPECIFIED 06/22/2017 MELANIE COPELANDP Ot R11.2 NAUSEA WITH VOMITING, UNSPECIFIED Procedures Code Description Performed By Performed On 74.1 LOW CERVICAL 11/10/2009 06244 LUMBAR PUNCTURE 07/24/2013 80600 CMP 07/24/2013 11148 TSH 07/24/2013 14638 CBC 07/24/2013 30678 UA W/ CULTURE IF INDICATED 07/24/2013 95251 CULTURE URINE 07/27/2013 37476 TSH 09/16/2013 14571 ROUTINE VENIPUNCTURE 09/16/2013 53778 CMP 09/16/2013 33077 CBC 09/16/2013 [id number] GFR CALC (RESULT ONLY) 09/16/2013 36997 UA W/ CULTURE IF INDICATED 10/22/2013 11784 UA W/ CULTURE IF INDICATED 10/28/2013 46537 CULTURE URINE 10/28/2013 34637 UA W/ CULTURE IF INDICATED 11/18/2013 02662 CULTURE URINE 11/21/2013 09690 TEST, URINE (IN- HOUSE) 04/06/2014 88710 IUD REMOVAL 04/20/2014 14385 PAP SMEAR 04/20/2014 Q0091 PAP SMEAR OBTAIN SMEAR 04/20/2014 48442 TEST, URINE (IN- HOUSE) 08/19/2014 63137 XRAY HIP LEFT UNILATERAL MIN 2 VIEWS 09/08/2014 26749 UA W/ CULTURE IF INDICATED 09/23/2014 Results There is no data. Encounters ACCT No. Visit Date/Time Discharge Status Pt. Type Provider Facility Loc./Unit Complaint [id number] 05/25/2017 09:25:00 05/25/2017 23:59:59 CLS Outpatient MELANIE COPELAND DIRECTOR OF COMM[facility]ITY C[facility] CARD NAUSEA W/VOMITING R11.2 [id number] 03/21/2017 07:06:00 03/21/2017 23:59:59 CLS Outpatient PENELOPE ALANIS DIRECT[facility] OF COMM[facility] RAD EPIGASTRIC PAIN [id number] 09/19/2013 12:24:00 09/19/2013 14:55:00 DIS Outpatient LARRY ZAFAR WATER INSPECTOR [facility] SDC PSEUDOTUMOR CEREBRI; VISUAL DISTURBANCE;HEADACH [id number] 08/28/2013 19:06:00 08/28/2013 23:59:59 CLS Outpatient BJ BAH OD [facility] RAD UGO ILEDEMA [id number] 05/25/2017 10:03:00 Document Registration [id number] 01/01/2012 13:06:00 Document Registration [id number] 11/10/2009 13:51:00 Document Registration [id number] 12/22/2014 16:49:00 12/22/2014 23:59:59 CLS Outpatient LARRY ZAFAR APRN [id number] 10/20/2014 16:47:00 10/20/2014 23:59:59 CLS Outpatient LARRY ZAFAR APRN [id number] 09/23/2014 10:30:00 09/23/2014 23:59:59 CLS Outpatient LARRY ZAFAR APRN [id number] 09/02/2014 16:44:00 09/02/2014 23:59:59 CLS Outpatient FAITH KRISHNAN DO [id number] 08/19/2014 16:16:00 08/19/2014 23:59:59 CLS Outpatient LARRY ZAFAR APRN [id number] 07/20/2014 16:44:00 07/20/2014 23:59:59 CLS Outpatient FAITH KRISHNAN DO [id number] 06/22/2014 15:03:00 06/22/2014 23:59:59 CLS Outpatient FAITH KRISHNAN DO [id number] 04/20/2014 16:52:00 04/20/2014 23:59:59 CLS Outpatient CLARE LADD APRN [id number] 04/06/2014 16:45:00 04/06/2014 23:59:59 CLS Outpatient CLARE LADD APRN [id number] 02/20/2014 11:33:00 02/20/2014 23:59:59 CLS Outpatient FAITH KRISHNAN DO [id number] 01/20/2014 16:46:00 01/20/2014 23:59:59 CLS Outpatient FAITH KRISHNAN DO [id number] 12/24/2013 15:46:00 12/24/2013 23:59:59 CLS Outpatient LARRY ZAFAR APRN [id number] 11/18/2013 10:24:00 11/18/2013 23:59:59 CLS Outpatient FAITH KRISHNAN DO [id number] 10/28/2013 14:11:00 10/28/2013 23:59:59 CLS Outpatient LARRY ZAFAR APRN [id number] 10/03/2013 09:22:00 10/03/2013 23:59:59 CLS Outpatient FAITH KRISHNAN DO [id number] 09/16/2013 08:19:00 09/16/2013 23:59:59 CLS Outpatient LARRY ZAFAR APRN [id number] 07/24/2013 16:48:00 07/24/2013 23:59:59 CLS Outpatient FAITH KRISHNAN DO
== END 2017-09-03 12:43 | disposition home or self-care (01) ==
LOC: EDUNIT# 11:08 → ER 11:11
DX: R51 Headache (principal); M54.2 Cervicalgia; V59.40XA Driver of pick-up truck or van injured in collision with unspecified motor vehicles in traffic accident, initial encounter
CPT/HCPCS: 70450; 72125; 84703; 99282

== ENCOUNTER → 2018-02-07 | Outpatient (CLI) | payer OTHER ==
[~2018-02-07] MED LIST changes: +NORG1TAB83; +OXYC-197 PO
--- NOTE | 2018-02-07 17:30 | Diagnostic Imaging Report ---
PROCEDURE: US OB single fetus <14 wks. TECHNIQUE: Multiple real-time grayscale images were obtained over the gravid uterus in various projections. INDICATION: dating. COMPARISON: None. FINDINGS: There is a single fetus seen within the uterus. Decidual reaction is poor. There is no detectable heart tone. The gestational age is measured at 8 weeks 4 days. There is no subchronic hemorrhage. No adnexal mass or free fluid is seen. IMPRESSION: 8 week 4 day demise. Dictated by: Dictated on workstation # [id number]
== END ==
LOC: RAD 16:47
PROVIDERS: ATTEND Family Medicine
DX: Z34.81 Encounter for supervision of other normal pregnancy, first trimester (principal); Z3A.08 8 weeks gestation of pregnancy
CPT/HCPCS: 76801

== ENCOUNTER 2018-02-08 12:24 | Day surgery (SDC) | payer OTHER ==
[~2018-02-08] VITALS: Ht 152.4 cm; Wt 92.1 kg
[~2018-02-08 12:24] MED LIST changes: -OXYC-197 PO
--- OUTSIDE RECORDS SUMMARY | 2018-02-08 12:30 | XMS REPORT | Clinical Summary ---
Author Author [facility] Organization [facility] Address Unknown Phone Unavailable Care Team Providers Care Internet Marketing Assistant Name Role Phone Geronimo Juarez MD Unavailable Charlette Shin NP PCP Darya Jules RN Unavailable Unavailable Ina Ruiz RN Unavailable Unavailable Source Comments Some departments are not documenting in the electronic medical record. If you do not see the information that you expected, contact Release of Information in the Health Information Management department at [phone] for further assistance in locating additional records.[facility] Allergies Active Allergy Reactions Severity Noted Date [...] Taken Blood Pressure 120/84 11/18/2014 3:05 PM MARKET ANALYST Pulse 88 11/18/2014 3:05 PM MARKET ANALYST Temperature 36.8 C (98.2 F) 07/10/2014 8:30 [...] PHYSICAL (COMPREHENSIVE) 1995 EXAM PERTUSSIS VACCINE 1999 HIV SCREENING 2003 TETANUS VACCINE 2005 CERVICAL CANCER SCREENING 2009 INFLUENZA VACCINE 06/17/2018 Results Not on filefrom Last 3 Months
--- OUTSIDE RECORDS SUMMARY | 2018-02-08 12:31 | XMS REPORT ---
Author Author PENELOPE ALANIS [facility] Address [address] [place] [address] Care Team Providers Care Loan Processor Name Role Phone ANNABELLE PENELOPE Unavailable PROBLEMS Type Condition ICD9-CM Code LUL82-TA Code Onset Dates Condition Status SNOMED Code Problem History of migraine headaches Z86.69 Active 438761970 Problem Generalized abdominal pain R10.84 Active 359071358 Problem Allergic asthma, mild intermittent, uncomplicated J45.20 Active 793241832 Problem Otalgia of both ears H92.03 Active 874107555 Problem Slow transit constipation K59.01 Active 63654668 Problem Dyspepsia R10.13 Active 564663739 Problem Epigastric pain R10.13 Active 91869257 Problem Acute swimmer''s ear of right side H60.331 Active 65872878 Problem Seasonal allergic rhinitis, unspecified chronicity, unspecified trigger J30.2 Active 915458327 ALLERGIES Substance Reaction Event Type Date Status Cephalexin Unknown Drug Allergy Feb, Active ENCOUNTERS Encounter Location Date Diagnosis [place] [id number] [place] [address] 36772- 7030 Nov, Superior glenoid labrum lesion of right shoulder, initial encounter S43.431A [facility] [id number] [place] [address] 41526- 0993 14 Nov, 2017 Otalgia of both ears H92.03 [facility] [id number] [place] [address] 22467 -8962 07 Nov, 2017 Bilateral otitis media with effusion H65.93 [facility] [id number] [place] [address] 38667- 8087 28 Oct, 2017 Acute pain of right shoulder M25.511 [facility] [id number] [place] [address] 37068- 1375 Oct, [place] [id number] [place] [address] 59369- 0910 Oct, Acute suppurative otitis media of left ear without spontaneous rupture of tympanic membrane, recurrence not specified H66.002 ; Exudative tonsillitis J03.90 and Sore throat J02.9 [place] [id number] [place] [address] 01861- 5318 Sep, Acute intractable headache, unspecified headache type R51 [facility] [place] [id number] [place] [address] 59920 -3138 Sep, Non-intractable vomiting with nausea, unspecified vomiting type R11.2 [place] [address] 11007- 8116 Sep, Urinary tract infection without hematuria, site unspecified N39.0 [place] [id number] [place] [address] 50944- 2104 Sep, Dysuria R30.0 [place] [address] 10601- 5576 Sep, Acute swimmer''s ear of right side H60.331 ; Slow transit constipation K59.01 and Hemorrhoids, unspecified hemorrhoid type K64.9 [place] [id number] [place] [address] 53502- 1448 Aug, Acute midline low back pain without sciatica M54.5 [place] [id number] [place] [address] 67124- 7383 Jun, Encounter for Nexplanon removal Z30.46 and Oral contraception initial prescription Z30.011 [facility] [place] [id number] [place] [address] 05525 -8796 Jun, Seasonal allergic rhinitis, unspecified chronicity, unspecified trigger J30.2 [place] [id number] [place] [address] 87115- 4476 Jun, [place] [id number] [place] [address] 23472- 0488 Jun, Encounter for immunization Z23 [place] [address] 12130- 8145 Jun, [place] [address] 77869- 8100 May, [place] [address] 77047- 0797 Apr, Diarrhea, unspecified R19.7 ; Nausea with vomiting, unspecified R11.2 and RUQ pain R10.11 [place] [address] 66788- 8423 Apr, [facility] [place] [address] 75421 -5180 Apr, Gastroenteritis and colitis, viral A08.4 [place] [id number] [place] [address] 61563- 1626 Mar, [facility] [place] [address] 82002 -6001 Mar, Finger laceration, initial encounter S61.219A [place] [id number] [place] [address] 60684- 6729 Mar, Cough R05 and Acute seasonal allergic rhinitis due to pollen J30.1 [place] [id number] [place] [address] 32047- 3707 Mar, Splenomegaly R16.1 [place] [address] 59709- 1241 Mar, Splenomegaly R16.1 [place] [id number] [place] [address] 22125- 9945 Feb, Epigastric pain R10.13 ; Generalized abdominal pain R10.84 and Dyspepsia R10.13 [place] [address] 17912- 2786 Feb, Melanocytic nevus of face, other location D22.39 [facility] WALK IN [facility] [address] 92174 -0481 12 Feb, 2017 Sore throat J02.9 and Acute nasopharyngitis (common cold) J00 [place] [address] 72495- 4337 January, Acute gastritis without hemorrhage, unspecified gastritis type K29.00 [place] [address] 05424- 2534 January, [facility] [place] [address] 69506 -5054 January, Sore throat J02.9 and Strep throat J02.0 [place] [address] 91387- 7874 14 Oct, 2016 Acute intractable headache, unspecified headache type R51 [place] [address] 61662- 4840 10 Oct, 2016 Dental examination Z01.20 [facility] [place] [address] 19029 -0524 16 Sep, 2016 Costochondritis, acute M94.0 [place] [address] 92267- 2207 Aug, Acute midline low back pain without sciatica M54.5 [place] [address] 24105- 7121 07 Jul, 2016 Sebaceous cyst of labia N90.7 [place] [address] 13864- 4211 Jun, Bronchitis J40 [place] [address] 58283- 6693 May, Encounter for immunization Z23 [place] [id number] [place] [address] 39387- 1838 13 May, 2016 [place] [address] 80850- 1928 May, Seasonal allergic rhinitis due to pollen J30.1 [place] [id number] [place] [address] 34309- 9349 Apr, Overweight E66.3 [place] [address] 52905- 3675 Feb, Arm pain, left M79.[address] Z97.5 [place] [address] 54004- 2655 Feb, Pain of left upper extremity M79.602 [place] [address] 39709- 5707 January, History of migraine headaches Z86.69 and Acute intractable headache, unspecified headache type R51 [place] [id number] [place] [address] 15451- 8304 Oct, [facility] [place] [id number] [place] [address] 14669 -3241 Oct, Left otitis media H66.92 [place] [id number] [place] [address] 68520- 2210 Sep, Overweight E66.3 [facility] [place] [id number] [place] [address] 97936 -4017 Sep, Upper respiratory tract infection, unspecified type 465.9 ; Nausea R11.0 ; Dizziness R42 ; Headache, unspecified headache type R51 and Allergic rhinitis, unspecified allergic rhinitis type J30.9 [place] [id number] [place] [address] 90211- 7013 Aug, Vertigo R42 and Overweight E66.3 [facility] [place] [address] 28877 -5813 Aug, Nonintractable migraine, unspecified migraine type G43.009 [place] [address] 08700- 6796 Jul, Overweight E66.3 and Nonintractable migraine, unspecified migraine type G43.009 [facility] [id number] [place] [address] [id number] Jul, Dental examination Z01.20 [place] [address] 51032- 8384 Jun, Need for meningococcus vaccine Z23 and Hepatitis A vaccination not up to date Z28.3 [place] [address] 34129- 6051 10 Jun, 2015 Encounter for immunization Z23 [address] 45525- 7987 May, Headache 784.0 [place] [address] 28953- 7906 Apr, Sinusitis 473.[address] 30747- 9469 Apr, Environmental allergies V15.09 ; Wheezing 786.07 and Sinusitis 473.9 [place] [id number] [place] [address] 67164- 5142 Apr, Nexplanon insertion V25.5 [facility] [address] [id number] Mar, Dental examination V72.2 [place] [address] 01407- 2085 Feb, control counseling V25.09 [place] [address] 16730- 1560 Feb, Intracranial hypertension, benign 348.2 [place] [address] 18648- 6966 18 Feb, 2015 [facility] [place] [facility] [address] [id number] [place] [address]- 3287 14 Dec, 2014 [facility] [place] [facility] [address] [id number] [place] [address]- 1633 13 Dec, 2014 [facility] [place] [facility] [address] [id number] [place] [address]- 1651 17 Nov, 2014 [facility] [place] [facility] [address] [id number] [place] [address]- 0040 17 Nov, 2014 [facility] [place] [facility] [address] [id number] [place] [address]- 1619 Nov, [facility] [place] [facility] [address] [id number] [place] [address]- 0453 Nov, [facility] [place] [facility] [address] [id number] [place] [address]- 5271 Nov, [facility] [place] [facility] [address] [id number] [place] [address]- 6600 Nov, [facility] [place] [facility] [address] [id number] [place] [address]- 5026 Oct, [facility] [place] [facility] [address] [id number] [place] [address]- 6601 Oct, [facility] [place] [facility] [address] [id number] [place] [address]- 4186 Sep, [facility] [place] [facility] [address] [id number] [place] [address]- 0748 Sep, [facility] [place] [facility] [address] [id number] [place] [address]- 9704 Sep, [facility] [place] [facility] [address] [id number] [place] [address]- 9125 Sep, [facility] [place] [facility] [address] [id number] [place] [address]- 6146 Sep, [facility] [place] [facility] [address] [id number] [place] [address]- 3592 07 Sep, 2014 [facility] [address] [id number] [place] [address]- 1402 Sep, [facility] [place] [facility] [address] [id number] [place] [address]- 7011 Sep, [facility] [address] [id number] [place]70 Aug, [facility] [place] [facility] [address] [id number] [place] [address]- 7347 Aug, [facility] [address] [id number] [place] [address] Aug, [facility] [place] [facility] [address] [id number] [place] [address]- 6219 Aug, [facility] [address] [id number] [place] [address]- 8114 Aug, [facility] [address] [id number] [place] [address]- 5194 Aug, [facility] [place] [facility] [address] [id number] [place] [address]- 5135 Aug, [facility] [address] [id number] [place] [address]- 7648 Aug, [facility] [place] [facility] [address] [id number] [place] [address]- 0070 Jul, [facility] [place] [facility] [address] [id number] [place] [address]- 3575 Jul, [facility] [place] [facility] [address] [id number] [place] [address]- 5704 Jul, [facility] [place] [facility] [address] [id number] [place] [address]- 7646 Jul, [facility] [place] [facility] [address] [id number] [place] [address]- 3561 Jul, [facility] [place] [facility] [address] [id number] [place] [address]- 1041 Jun, [facility] [place] [facility] [address] [id number] [place] [address]- 6388 Jun, [facility] [place] [facility] [address] [id number] [place] [address]- 5354 Jun, [facility] [place] [facility] [address] [id number] [place] [address]- 3070 Jun, [facility] [place] [facility] [address] [id number] [place] [address]- 4545 Jun, [facility] [place] [facility] [address] [id number] [place] [address]- 4665 Apr, [facility] [place] [facility] [address] [id number] [place] [address]- 5881 Apr, [facility] [place] [facility] [address] [id number] [place] [address]- 6639 Apr, [facility] [place] [facility] [address] [id number] [place] [address]- 7778 Apr, [facility] [place] [facility] [address] [id number] [place] [address]- 7886 Apr, [facility] [place] [facility] [address] [id number] [place] [address]- 2924 Mar, [facility] [place] [facility] [address] [id number] [place] [address]- 1721 Mar, [facility] [place] [facility] [address] [id number] [place] [address]- 7991 Mar, [facility] [place] [facility] [address] [id number] [place] [address]- 6673 Mar, [facility] [place] [facility] [address] [id number] [place] 6613 Mar, [facility] [place] [facility] [address] [id number] [place] [address]- 8672 Feb, [facility] [place] [facility] [address] [id number] [place] [address]- 7791 Feb, [facility] [place] [facility] [address] [id number] [place] [address]- 9207 January, [facility] [place] [facility] [address] [id number] [place] [address]- 7603 January, [facility] [place] [facility] [address] [id number] [place] [address]- 0037 Dec, [facility] [place] [facility] [address] [id number] [place] 3079 Dec, [facility] [place] [facility] [address] [id number] [place] [address]- 4551 Dec, [facility] [place] [facility] [address] [id number] [place] [address]- 8501 Nov, [facility] [place] [facility] [address] [id number] [place] [address]- 6512 Nov, [facility] [place] [facility] [address] [id number] [place] [address]- 1324 Nov, [facility] [place] [facility] [address] [id number] [place] [address]- 9567 Nov, [facility] [place] [facility] [address] [id number] [place] [address]- 3573 Nov, [facility] [place] [facility] [address] [id number] [place] [address]- 0896 Oct, [facility] [place] [facility] [address] [id number] [place] [address]- 5372 Oct, [facility] [place] [facility] [address] [id number] [place] [address]- 6815 Oct, [facility] [place] [facility] [address] [id number] [place] [address]- 7231 Oct, [facility] [place] [facility] [address] [id number] [place] [address]- 8400 Oct, [facility] [place] [facility] [address] [id number] [place] [address]- 9708 Oct, [facility] [place] [facility] [address] [id number] [place] [address]- 1505 Oct, [facility] [place] [facility] [address] [id number] [place] [address]- 7135 Oct, [facility] [place] [facility] [address] [id number] [place] [address]- 3041 Oct, [facility] [place] [facility] [address] [id number] [place] [address]- 0479 Sep, [facility] [place] [facility] [address] [id number] [place] [address]- 4749 Sep, [facility] [place] [facility] [address] [id number] [place] [address]- 7350 Sep, [facility] [place] [facility] [address] [id number] [place] [address]- 1901 Sep, [facility] [place] [facility] [address] [id number] [place] [address]- 6402 Sep, [facility] [place] [facility] [address] [id number] [place] [address]- 1652 Sep, [facility] [place] [facility] [address] [id number] [address]- 4974 Sep, [facility] [place] [facility] [address] [id number] [place] [address]- 9994 Sep, [facility] [place] [facility] [address] [id number] [place] [address]- 9725 Aug, [facility] [place] [facility] [address] [id number] [place] [address]- 9326 Aug, [facility] [place] [facility] [address] [id number] [address]- 3345 Aug, [facility] [address] [address]- 7207 Aug, [facility] [address] [address]- 2177 Aug, [facility] [address] [address]- 2183 Aug, [facility] [id number] [place] [address] 88044- 6303 Aug, [facility] [address] [place] [address] 07895- 1805 Aug, [facility] [address] [place] [address] 01313- 5602 Aug, [facility] [id number] [place] [address] 34358- 4472 Jul, [facility] [address] [place] [address] 94272- 9990 Jul, [facility] [address] [address]- 2896 Jul, IMMUNIZATIONS No Known Immunizations SOCIAL HISTORY Never Assessed REASON FOR VISIT Stomach ache- has been off and on for a month, pt is having various areas of pain in abdomen, nauseated, normal bowel consistency and frequency, stomach is always hurting after eating, reports the pain in more like a sharp pain, pt does still have gallbladder-[facility] PLAN OF CARE Activity Details Follow Up pending work up and as needed with pcp Reason: VITAL SIGNS Height 64 in 2017-03-14 Weight 203 lbs 2017-03-14 Temperature 98.8 degrees Fahrenheit 2017-03-14 Heart Rate 84 bpm 2017-03-14 Respiratory Rate 18 2017-03-14 Oximetry 100 % 2017-03-14 BMI 34.84 kg/m2 2017-03-14 Blood pressure systolic 124 mmHg 2017-03-14 Blood pressure diastolic 74 mmHg 2017-03-14 MEDICATIONS Medication Instructions Dosage Frequency Start Date End Date Duration Status Loratadine 10 MG Orally Once a day 1 tablet 24h Active Nexplanon 68 MG Active Pepcid 20 mg Orally twice a day 1 tablet 12h January, 10 days Active Fioricet 50-325-40 MG Orally every 4 hrs 1 tablet as needed 4h Active Proventil HFA 108 (90 Base) MCG/ACT Inhalation every 4 hrs 2 puffs as needed 4h Active Cyclobenzaprine HCl 10 mg Orally Once a day at nite 1 tablet Aug, Active Zofran ODT 8 MG Orally every 8 hrs 1 tablet on the tongue and allow to dissolve as needed for nausea 8h January, 10 days Active RESULTS Name Result Date Reference Range TEST, URINE (IN HOUSE) 2017-03-14 RESULTS Negative Lot # [id number] Control + Exp date 04/05/31 UA LONG DIP (IN HOUSE) 2017-03-14 Lot # [id number] Exp date 02/01/30 Clarity Clear Color Yellow Odor None GLU Negative ARTI Negative KET Negative SG 1.020 BLO Negative pH 5.5 Protein Negative URO 0.2 NIT Negative DALY Negative Lot # Exp date H PYLORI (IN HOUSE) 2017-03-14 H. PYLORI Negative Control + Lot # [id number] Exp date Ultrasound : Abdominal, COMPLETE 2017-03-21 PROCEDURES Procedure Date Ordered Result Body Site MEASURE BLOOD OXYGEN LEVEL March 14, 2017 IMMUNOASSAY,INFECTIOUS AGENT March 14, 2017 URINE TEST March 14, 2017 URINALYSIS, AUTO, W/O SCOPE March 14, 2017 INSTRUCTIONS MEDICATIONS ADMINISTERED No Known Medications MEDICAL (GENERAL) HISTORY Type Description Date Medical History idiopathic intracranial hypertension Surgical History section 2009 Surgical History right shoulder surgery (scope) 2005 Hospitalization History surgery
--- OUTSIDE RECORDS SUMMARY | 2018-02-08 12:32 | XMS REPORT ---
Author Author GORGE METZ Organization [facility] Address [address] [place] [address] Care Team Providers Care Intranet Specialist Name Role Phone GORGE METZ Unavailable PROBLEMS Type Condition ICD9-CM Code FTP33-CQ Code Onset Dates Condition Status SNOMED Code Problem History of migraine headaches Z86.69 Active 055584429 Problem Generalized abdominal pain R10.84 Active 926246913 Problem Allergic asthma, mild intermittent, uncomplicated J45.20 Active 746024192 Problem Otalgia of both ears H92.03 Active 542665780 Problem Slow transit constipation K59.01 Active 27683003 Problem Dyspepsia R10.13 Active 714314519 Problem Epigastric pain R10.13 Active 22932239 Problem Acute swimmer''s ear of right side H60.331 Active 27025085 Problem Seasonal allergic rhinitis, unspecified chronicity, unspecified trigger J30.2 Active 665035025 ALLERGIES Substance Reaction Event Type Date Status Cephalexin Unknown Drug Allergy Mar, Active ENCOUNTERS Encounter Location Date Diagnosis [facility] [id number] [place] [address] 67830- 4355 January, [place] [address] [place] [id number] [place] [address] 46211- 9156 Dec, [facility] [address] [place] [id number] [place] [address] 42608- 0062 Dec, Dental examination Z01.20 [facility] [address] [place] [id number] [place] [address] 76303- 9038 Dec, [facility] [address] [place] [id number] [place] [address] 58748- 7097 Dec, Encounter for test Z32.00 [facility] [address] [place] [id number] [place] [address] 87373- 0584 Dec, [place] [address] [place] [id number] [place] [address] 93601- 0160 Nov, Dysfunction of both eustachian tubes H69.83 [place] [address] [place] [id number] [place] [address] 89125- 9566 Nov, Superior glenoid labrum lesion of right shoulder, initial encounter S43.431A [place] [address] 34252- 3680 Nov, Otalgia of both ears H92.03 [facility] [place] [address] 26038 -5790 Nov, Bilateral otitis media with effusion H65.93 [place] [address] 44209- 0314 Oct, Acute pain of right shoulder M25.511 [place] [address] 97195- 3727 Oct, [place] [address] 37958- 4678 Oct, Acute suppurative otitis media of left ear without spontaneous rupture of tympanic membrane, recurrence not specified H66.002 ; Exudative tonsillitis J03.90 and Sore throat J02.9 [place] [address] [place] [id number] [place] [address] 47040- 9577 Sep, Acute intractable headache, unspecified headache type R51 [facility] [place] [address] [place] [id number] [place] [address] 28220 -4182 Sep, Non-intractable vomiting with nausea, unspecified vomiting type R11.2 [place] [address] 79365- 0989 Sep, Urinary tract infection without hematuria, site unspecified N39.0 [place] [address] 31755- 3374 Sep, Dysuria R30.0 [place] [address] 74623- 6667 Sep, Acute swimmer''s ear of right side H60.331 ; Slow transit constipation K59.01 and Hemorrhoids, unspecified hemorrhoid type K64.9 [place] [address] 08136- 7653 Aug, Acute midline low back pain without sciatica M54.5 [place] [address] 79447- 5084 Jun, Encounter for Nexplanon removal Z30.46 and Oral contraception initial prescription Z30.011 [facility] [address] 18131 -7964 Jun, Seasonal allergic rhinitis, unspecified chronicity, unspecified trigger J30.2 [place] [address] 93187- 5877 Jun, [place] [address] 56198- 4668 Jun, Encounter for immunization Z23 [place] [address] 30813- 4219 Jun, [place] [address] 65930- 6849 May, [place] [address] 30738- 2189 Apr, Diarrhea, unspecified R19.7 ; Nausea with vomiting, unspecified R11.2 and RUQ pain R10.11 [place] [address] 58470- 6275 Apr, [facility] [address] 28650 -6606 Apr, Gastroenteritis and colitis, viral A08.4 [place] [address] [place] [address]- 6343 Mar, [facility] IN [facility] [address] 68861 -5297 Mar, Finger laceration, initial encounter S61.219A [facility] [address] 26382- 4928 Mar, Cough R05 and Acute seasonal allergic rhinitis due to pollen J30.1 [place] [address] 18324- 9944 07 Mar, 2017 Splenomegaly R16.1 [place] [address] 79260- 2342 Mar, Splenomegaly R16.1 [place] [address] 62177- 0283 Feb, Epigastric pain R10.13 ; Generalized abdominal pain R10.84 and Dyspepsia R10.13 [place] [address] 57899- 4851 Feb, Melanocytic nevus of face, other location D22.39 [facility] [place] [address] [place] [id number] [place] [address] 75757 -6263 Feb, Sore throat J02.9 and Acute nasopharyngitis (common cold) J00 [place] [address] [place] [id number] [place] [address] 59800- 1654 January, Acute gastritis without hemorrhage, unspecified gastritis type K29.00 [place] [address] [place] [id number] [place] [address] 66302- 9351 January, [facility] [address] 54674 -3427 January, Sore throat J02.9 and Strep throat J02.0 [facility] [address] [place] [id number] [place] [address] 25280- 5416 14 Oct, 2016 Acute intractable headache, unspecified headache type R51 [facility] [address] [place] [id number] [place] [address] 57411- 0860 10 Oct, 2016 Dental examination Z01.20 [facility] [address] 24549 -4974 16 Sep, 2016 Costochondritis, acute M94.0 [place] [address] 30249- 1714 27 Aug, 2016 Acute midline low back pain without sciatica M54.5 [place] [address] 50945- 0307 07 Jul, 2016 Sebaceous cyst of labia N90.7 [place] [address] 82453- 9907 Jun, Bronchitis J40 [place] [address] 72000- 9572 22 May, 2016 Encounter for immunization Z23 [place] [address] 20607- 8811 13 May, 2016 [place] [address] 39267- 4439 12 May, 2016 Seasonal allergic rhinitis due to pollen J30.1 [place] [address] 19120- 7418 02 Apr, 2016 Overweight E66.3 [place] [address] 14006- 8953 24 Feb, 2016 Arm pain, left M79.[address] Z97.5 [place] [address] 76864- 8339 20 Feb, 2016 Pain of left upper extremity M79.602 [place] [address] [place] [id number] [place] [address] 83053- 4161 10 Jan, 2016 History of migraine headaches Z86.69 and Acute intractable headache, unspecified headache type R51 [place] [address] [place] [id number] [place] [address] 11771- 6570 08 Oct, 2015 [facility] IN [facility] [address] 78714 -9374 02 Oct, 2015 Left otitis media H66.92 [place] [address] 03019- 5043 Sep, Overweight E66.3 [facility] [address] 10975 -1564 13 Sep, 2015 Upper respiratory tract infection, unspecified type 465.9 ; Nausea R11.0 ; Dizziness R42 ; Headache, unspecified headache type R51 and Allergic rhinitis, unspecified allergic rhinitis type J30.9 [place] [address] 37914- 9178 15 Aug, 2015 Vertigo R42 and Overweight E66.3 [facility] IN [facility] [address] 57609 -5396 10 Aug, 2015 Nonintractable migraine, unspecified migraine type G43.009 [place] [address] 77888- 1716 Jul, Overweight E66.3 and Nonintractable migraine, unspecified migraine type G43.009 [facility] [address] [place] [id number] [place] [address] [id number] Jul, 2015 Dental examination Z01.20 [place] [address] [place] [id number] [place] [address] 44371- 8601 16 Jun, 2015 Need for meningococcus vaccine Z23 and Hepatitis A vaccination not up to date Z28.3 [place] [address] 54645- 4299 10 Jun, 2015 Encounter for immunization Z23 [place] [address] 97874- 2668 25 May, 2015 Headache 784.0 [place] [address] [place] [address]- 6659 Apr, Sinusitis 473.9 [facility] [address] [place] [id number] [place] [address] 50522- 7643 Apr, Environmental allergies V15.09 ; Wheezing 786.07 and Sinusitis 473.9 [facility] [address] [place] [id number] [place] [address] 47514- 6240 Apr, Nexplanon insertion V25.5 [facility] [address] [place] [id number] [place] [address] [id number] Mar, Dental examination V72.2 [facility] [address] 36003- 5418 Feb, control counseling V25.09 [facility] [address] [place] [id number] [place] [address] 21032- 3514 Feb, Intracranial hypertension, benign 348.2 [facility] [address] [place] [id number] [place] [address] 68361- 6274 Feb, [facility] [address] [place] [id number] [place] [address] 95489- 4568 Dec, [facility] [address] [place] [id number] [place] [address] 67233- 9462 Dec, [facility] [address] [place] [id number] [place] [address] 63047- 5369 Nov, [facility] [address] [place] [id number] [place] [address] 85560- 3878 17 Nov, 2014 [facility] [address] [place] [id number] [place] [address] 26280- 7040 Nov, [facility] [address] [place] [id number] [place] [address] 10561- 2676 11 Nov, 2014 [facility] [address] [place] [id number] [place] [address] 01554- 4003 10 Nov, 2014 [facility] [address] [place] [id number] [place] [address] 66413- 1032 Nov, [facility] [place] [facility] [address] [id number] [place] [address]- 4555 Oct, [facility] [place] [facility] [address] [id number] [place] [address]- 7801 Oct, [facility] [place] [facility] [address] [id number] [place] [address]- 7510 Sep, [facility] [place] [facility] [address] [id number] [place] [address]- 4653 Sep, [facility] [place] [facility] [address] [id number] [place] [address]- 5515 Sep, [facility] [place] [facility] [address] [id number] [place] [address]- 3985 Sep, [facility] [place] [facility] [address] [facility] [id number] [place] [address]- 1360 Sep, [facility] [place] [facility] [address] [id number] [place] [address]- 5050 Sep, [facility] [place] [facility] [address] [facility] [id number] [place] [address]- 4657 Sep, [facility] [place] [facility] [address] [facility] [id number] [place] [address]- 3078 Sep, [facility] [place] [facility] [address] [id number] [place] [address]- 1654 Aug, [facility] [place] [facility] [address] [id number] [place] [address]- 1984 Aug, [facility] [place] [facility] [address] [id number] [place] [address]- 3065 Aug, [facility] [place] [facility] [address] [id number] [place] [address]- 8574 Aug, [facility] [place] [facility] [address] [facility] [id number] [place] [address]- 6819 16 Aug, 2014 [facility] [place] [facility] [address] [id number] [place] [address]- 3359 16 Aug, 2014 [facility] [place] [facility] [address] [id number] [place] [address]- 6388 Aug, [facility] [place] [facility] [address] [id number] [place] [address]- 0121 Aug, [facility] [place] [facility] [address] [id number] [place] [address]- 2325 Jul, [facility] [place] [facility] [address] [id number] [place] [address]- 1675 Jul, [facility] [place] [facility] [address] [id number] [place] 3160 Jul, [facility] [place] [facility] [address] [id number] [place] [address]- 3051 Jul, [facility] [place] [facility] [address] [id number] [place] [address]- 5070 Jul, [facility] [place] [facility] [address] [id number] [place] [address]- 1426 Jun, [facility] [place] [facility] [address] [id number] [place] [address]- 8037 Jun, [facility] [place] [facility] [address] [id number] [place] [address]- 9033 Jun, [facility] [place] [facility] [address] [id number] [place] [address]- 8018 Jun, [facility] [place] [facility] [address] [id number] [place] [address]- 4813 Jun, [facility] [place] [facility] [address] [id number] [place] [address]- 4548 Apr, [facility] [place] [facility] [address] [id number] [place] [address]- 8988 Apr, [facility] [place] [facility] [address] [id number] [place] [address]- 9223 Apr, [facility] [place] [facility] [address] [id number] [place] [address]- 3414 Apr, [facility] [place] [facility] [address] [id number] [place] [address]- 1591 Apr, [facility] [place] [facility] [address] [id number] [place] [address]- 5836 Mar, [facility] [place] [facility] [address] [id number] [place] [address]- 2245 Mar, [facility] [place] [facility] [address] [id number] [place] [address]- 1838 Mar, [facility] [place] [facility] [address] [id number] [place] [address]- 9559 Mar, [facility] [place] [facility] [address] [id number] [place] [address]- 0256 Mar, [facility] [place] [facility] [address] [id number] [place] [address]- 4545 Feb, [facility] [place] [facility] [address] [id number] [place] [address]- 7059 Feb, [facility] [place] [facility] [address] [id number] [place] [address]- 6224 January, [facility] [place] [facility] [address] [id number] [place] [address]- 0712 January, [facility] [place] [facility] [address] [id number] [place] [address]- 6597 Dec, [facility] [place] [facility] [address] [id number] [place] [address]- 1146 Dec, [facility] [place] [facility] [address] [id number] [place] [address]- 8457 Dec, [facility] [place] [facility] [address] [id number] [place] [address]- 7233 Nov, [facility] [place] [facility] [address] [id number] [place] [address]- 4502 Nov, [facility] [place] [facility] [address] [id number] [place] [address]- 0308 Nov, [facility] [place] [facility] [address] [id number] [place] [address]- 8419 Nov, [facility] [place] [facility] [address] [id number] [place] [address]- 5323 Nov, [facility] [place] [facility] [address] [id number] [place] [address]- 3800 Oct, [facility] [place] [facility] [address] [id number] [place] [address]- 9105 Oct, [facility] [place] [facility] [address] [id number] [place] [address]- 2414 Oct, [facility] [place] [facility] [address] [id number] [place] [address]- 4990 Oct, [facility] [place] [facility] [address] [id number] [place] [address]- 2806 Oct, [facility] [place] [facility] [address] [id number] [place] [address]- 7122 Oct, [facility] [place] [facility] [address] [id number] [place] 2915 Oct, [facility] [place] [facility] [address] [id number] [place] [address]- 0843 Oct, [facility] [place] [facility] [address] [id number] [place] [address]- 2196 Oct, [facility] [place] [facility] [address] [id number] [place] [address]- 0899 Sep, [facility] [place] [facility] [address] [id number] [place] [address]- 4796 Sep, [facility] [place] [facility] [address] [id number] [place] [address]- 2033 Sep, [facility] [address] [id number] [place] [address]- 5948 Sep, [facility] [place] [facility] [address] [id number] [place] [address]- 3270 Sep, [facility] [place] [facility] [address] [id number] [place] [address]- 9708 Sep, [facility] [place] [facility] [address] [id number] [place] [address]- 3478 Sep, [facility] [place] [facility] [address] [id number] [place] [address]- 1889 Sep, [facility] [place] [facility] [address] [id number] [place] [address]- 5973 Aug, [facility] [place] [facility] [address] [id number] [place] [address]- 4482 Aug, [facility] [place] [facility] [address] [id number] [place] [address]- 4844 31 Aug, 2013 [facility] [place] [facility] [address] [id number] [place] [address]- 7153 31 Aug, 2013 [facility] [place] [facility] [address] [id number] [place] [address]- 7178 Aug, [facility] [place] [facility] [address] [id number] [place] [address]- 3580 27 Aug, 2013 [facility] [place] [facility] [address] [id number] [address]- 7726 20 Aug, 2013 [facility] [place] [facility] [address] [id number] [place] [address]- 1088 20 Aug, 2013 [facility] [place] [facility] [address] [id number] [place] [address]- 4308 18 Aug, 2013 [facility] [place] [facility] [address] [id number] [place] [address]- 9532 10 Jul, 2013 [facility] [place] [facility] [address] [facility] [id number] [place] [address]- 9312 Jul, [facility] [address] [facility] [id number] [place] [address]- 9339 Jul, IMMUNIZATIONS No Known Immunizations SOCIAL HISTORY Never Assessed REASON FOR VISIT Cough--tcuppettRn, -Cough, congestion, dizziness since Sunday PLAN OF CARE Activity Details Follow Up Next available with Jose Reason: VITAL SIGNS Height 64 in 2017-03-27 Weight 206.7 lbs 2017-03-27 Temperature 98.4 degrees Fahrenheit 2017-03-27 Heart Rate 90 bpm 2017-03-27 Respiratory Rate 18 2017-03-27 BMI 35.48 kg/m2 2017-03-27 Blood pressure systolic 134 mmHg 2017-03-27 Blood pressure diastolic 80 mmHg 2017-03-27 MEDICATIONS Medication Instructions Dosage Frequency Start Date End Date Duration Status Zofran ODT 8 MG Orally every 8 hrs 1 tablet on the tongue and allow to dissolve as needed for nausea 8h January, 10 days Active Cyclobenzaprine HCl 10 mg Orally Once a day at nite 1 tablet Aug, Active Loratadine 10 MG Orally Once a day 1 tablet 24h Active Nexplanon 68 MG Active Proventil HFA 108 (90 Base) MCG/ACT Inhalation every 4 hrs 2 puffs as needed 4h Active Fioricet 50-325-40 MG Orally every 4 hrs 1 tablet as needed 4h Active RESULTS No Results PROCEDURES No Known procedures INSTRUCTIONS MEDICATIONS ADMINISTERED No Known Medications MEDICAL (GENERAL) HISTORY Type Description Date Medical History idiopathic intracranial hypertension Surgical History section 2009 Surgical History right shoulder surgery (scope) 2005 Hospitalization History surgery
--- OUTSIDE RECORDS SUMMARY | 2018-02-08 12:32 | XMS REPORT ---
Author Author CASSI Lopez [facility] Address [address] [place] [address] Care Team Providers Care Ammonia Solution Preparer Name Role Phone CASSI Lopez Unavailable PROBLEMS Type Condition ICD9-CM Code IIC95-WF Code Onset Dates Condition Status SNOMED Code Problem History of migraine headaches Z86.69 Active 349345597 Problem Generalized abdominal pain R10.84 Active 272838504 Problem Allergic asthma, mild intermittent, uncomplicated J45.20 Active 352694903 Problem Otalgia of both ears H92.03 Active 471741490 Problem Slow transit constipation K59.01 Active 98307900 Problem Dyspepsia R10.13 Active 139908740 Problem Epigastric pain R10.13 Active 20367730 Problem Acute swimmer''s ear of right side H60.331 Active 20372385 Problem Seasonal allergic rhinitis, unspecified chronicity, unspecified trigger J30.2 Active 922597162 ALLERGIES Substance Reaction Event Type Date Status Cephalexin Unknown Drug Allergy Mar, Active ENCOUNTERS Encounter Location Date Diagnosis [facility] [id number] [place] [address] 33076- 3206 Dec, [facility] [id number] [place] [address] 18350- 1694 Nov, Dysfunction of both eustachian tubes H69.83 [facility] [address] [place] [address] 43156- 9072 Nov, Superior glenoid labrum lesion of right shoulder, initial encounter S43.431A [facility] [id number] [place] [address] 50447- 8299 14 Nov, 2017 Otalgia of both ears H92.[address] [facility] [address] [place] [address] 17112 -3290 Nov, Bilateral otitis media with effusion H65.93 [place] [id number] [place] [address] 64420- 9299 Oct, Acute pain of right shoulder M25.511 [facility] [id number] [place] [address] 08800- 6598 Oct, [place] [address] 26828- 7934 Oct, Acute suppurative otitis media of left ear without spontaneous rupture of tympanic membrane, recurrence not specified H66.002 ; Exudative tonsillitis J03.90 and Sore throat J02.9 [place] [id number] [place] [address] 99234- 9549 Sep, Acute intractable headache, unspecified headache type R51 [facility] [address] 10363 -7060 Sep, Non-intractable vomiting with nausea, unspecified vomiting type R11.2 [place] [id number] [place] [address] 00678- 7029 Sep, Urinary tract infection without hematuria, site unspecified N39.0 [place] [id number] [place] [address] 87378- 1929 Sep, Dysuria R30.0 [place] [id number] [place] [address] 58995- 0511 Sep, Acute swimmer''s ear of right side H60.331 ; Slow transit constipation K59.01 and Hemorrhoids, unspecified hemorrhoid type K64.9 [place] [address] 34733- 1015 Aug, Acute midline low back pain without sciatica M54.5 [place] [id number] [place] [address] 60760- 3861 Jun, Encounter for Nexplanon removal Z30.46 and Oral contraception initial prescription Z30.[address] [facility] IN [facility] [id number] [place] [address] 21675 -5959 Jun, Seasonal allergic rhinitis, unspecified chronicity, unspecified trigger J30.2 [place] [id number] [place] [address] 78246- 6704 Jun, [place] [address] 44295- 2302 Jun, Encounter for immunization Z23 [place] [address] 83910- 1346 Jun, [place] [address] 49125- 3691 May, [place] [address] 28544- 2207 Apr, Diarrhea, unspecified R19.7 ; Nausea with vomiting, unspecified R11.2 and RUQ pain R10.11 [place] [address] 62669- 2877 Apr, [facility] [address] 21564 -4236 Apr, Gastroenteritis and colitis, viral A08.4 [place] [address] 88973- 8685 Mar, [facility] [address] 96107 -8557 Mar, Finger laceration, initial encounter S61.219A [place] [address] 65143- 8490 Mar, Cough R05 and Acute seasonal allergic rhinitis due to pollen J30.1 [place] [address] 57538- 7238 Mar, Splenomegaly R16.1 [place] [address] 53018- 9128 Mar, Splenomegaly R16.1 [place] [address] 16356- 6468 28 Feb, 2017 Epigastric pain R10.13 ; Generalized abdominal pain R10.84 and Dyspepsia R10.13 [place] [address] 21397- 6374 Feb, Melanocytic nevus of face, other location D22.39 [facility] IN [place] [address] 00720 -5733 12 Feb, 2017 Sore throat J02.9 and Acute nasopharyngitis (common cold) J00 [place] [address] 58060- 9690 January, Acute gastritis without hemorrhage, unspecified gastritis type K29.00 [place] [address] 69206- 7916 January, [place] [address] 54121 -4930 04 Jan, 2017 Sore throat J02.9 and Strep throat J02.0 [place] [address] 47666- 7950 14 Oct, 2016 Acute intractable headache, unspecified headache type R51 [place] [address] 77951- 9593 10 Oct, 2016 Dental examination Z01.20 [place] [id number] [place] [address] 87552 -8808 16 Sep, 2016 Costochondritis, acute M94.0 [place] [address] 10655- 3992 27 Aug, 2016 Acute midline low back pain without sciatica M54.5 [place] [address] 78574- 2069 07 Jul, 2016 Sebaceous cyst of labia N90.7 [place] [id number] [place] [address] 46485- 7041 Jun, Bronchitis J40 [place] [address] 48144- 5320 22 May, 2016 Encounter for immunization Z23 [place] [address] 89467- 8686 13 May, 2016 [place] [address] 12519- 7990 12 May, 2016 Seasonal allergic rhinitis due to pollen J30.[address] 71099- 3627 Apr, Overweight E66.3 [place] [address] 87433- 6536 24 Feb, 2016 Arm pain, left M79.[address] Z97.5 [place] [address] 80313- 9126 Feb, Pain of left upper extremity M79.602 [place] [address] 31039- 0491 January, History of migraine headaches Z86.69 and Acute intractable headache, unspecified headache type R51 [address] 68524- 1099 Oct, [facility] [place] [address] [id number] [place] [address] 92948 -0818 Oct, Left otitis media H66.[address] 37481- 8868 Sep, Overweight E66.3 [facility] [address] [place] [address] 30758 -7004 13 Sep, 2015 Upper respiratory tract infection, unspecified type 465.9 ; Nausea R11.0 ; Dizziness R42 ; Headache, unspecified headache type R51 and Allergic rhinitis, unspecified allergic rhinitis type J30.9 [facility] [id number] [place] [address] 49933- 7661 15 Aug, 2015 Vertigo R42 and Overweight E66.3 [facility] [id number] [place] [address] 41890 -8652 10 Aug, 2015 Nonintractable migraine, unspecified migraine type G43.009 [facility] [address] 94181- 4775 Jul, Overweight E66.3 and Nonintractable migraine, unspecified migraine type G43.009 [facility] [address] [id number] Jul, Dental examination Z01.20 [place] [address] 07653- 8437 Jun, Need for meningococcus vaccine Z23 and Hepatitis A vaccination not up to date Z28.3 [facility] [address] 58729- 5492 10 Jun, 2015 Encounter for immunization Z23 [place] [address] 88512- 2547 May, Headache 784.0 [place] [address] 59217- 3941 Apr, Sinusitis 473.9 [place] [address] 28623- 3936 Apr, Environmental allergies V15.09 ; Wheezing 786.07 and Sinusitis 473.9 [place] [address] 69624- 5666 Apr, Nexplanon insertion V25.5 [facility] [address] [id number] Mar, Dental examination V72.2 [facility] [address] 23564- 2546 Feb, control counseling V25.09 [facility] [address] [id number] [place] [address]- 4592 Feb, Intracranial hypertension, benign 348.2 [facility] [address] [id number] [place] [address]- 3016 18 Feb, 2015 [facility] [address] [facility] [id number] [place] [address]- 1699 14 Dec, 2014 [facility] [address] [id number] [place] [address]- 6712 Dec, [facility] [address] [facility] [id number] [place] [address]- 0024 17 Nov, 2014 [facility] [address] [facility] [id number] [place] [address]- 8533 17 Nov, 2014 [facility] [address] [place] [id number] [address]- 3693 Nov, [facility] [address] [facility] [id number] [place] [address]- 8127 Nov, [facility] [address] [facility] [id number] [place] [address]- 5305 Nov, [facility] [address] [facility] [id number] [place] 8585 Nov, [facility] [address] [facility] [id number] [place] [address]- 1885 Oct, [facility] [address] [facility] [id number] [place] [address]- 6066 Oct, [facility] [address] [facility] [id number] [place] [address]- 4472 Sep, [facility] [address] [facility] [id number] [place] [address]- 8566 Sep, [facility] [address] [facility] [id number], [place] [address]- 2785 Sep, [facility] [place] [facility] [address] [id number] [place] [address]- 0764 Sep, [facility] [place] [facility] [address] [id number] [place] [address]- 7195 Sep, [facility] [place] [facility] [address] [id number] [place] [address]- 4952 Sep, [facility] [place] [facility] [address] [id number] [place] [address]- 5235 Sep, [facility] [place] [facility] [address] [id number] [place] [address]- 2952 Sep, [facility] [place] [facility] [address] [id number] [place] [address]- 2139 Aug, [facility] [place] [facility] [address] [id number] [place] [address]- 8158 Aug, [facility] [place] [facility] [address] [id number] [place] [address]- 8535 Aug, [facility] [place] [facility] [address] [id number] [place] [address]- 7854 Aug, [facility] [place] [facility] [address] [id number] [place] [address]- 8604 16 Aug, 2014 [facility] [place] [facility] [address] [id number] [place] [address]- 1564 16 Aug, 2014 [facility] [place] [facility] [address] [id number], [place] [address]- 4338 Aug, [facility] [place] [facility] [address] [id number] [place] [address]- 7755 Aug, [facility] [place] [facility] [address] [id number] [place] [address]- 4862 Jul, [facility] [place] [facility] [address] [id number] [place] [address]- 3108 Jul, [facility] [place] [facility] [address] [id number] [place] [address]- 3464 Jul, [facility] [place] [facility] [address] [id number] [place] [address]- 1461 Jul, [facility] [place] [facility] [address] [id number] [place] [address]- 0749 Jul, [facility] [place] [facility] [address] [id number] [place] [address]- 6623 Jun, [facility] [place] [facility] [address] [id number] [place] [address]- 7705 Jun, [facility] [place] [facility] [address] [id number] [place] 9213 Jun, [facility] [place] [facility] [address] [id number] [place] [address]- 5531 Jun, [facility] [place] [facility] [address] [id number] [place] [address]- 6202 Jun, [facility] [place] [facility] [address] [id number] [place] [address]- 1034 Apr, [facility] [place] [facility] [address] [id number] [place] [address]- 3111 Apr, [facility] [place] [facility] [address] [id number] [place] [address]- 5203 Apr, [facility] [place] [facility] [address] [id number] [place] [address]- 0909 Apr, [facility] [place] [facility] [address] [id number] [place] [address]- 4803 Apr, [facility] [place] [facility] [address] [id number] [place] [address]- 3762 Mar, [facility] [place] [facility] [address] [id number] [place] [address]- 5320 Mar, [facility] [place] [facility] [address] [id number] [place] [address]- 5205 Mar, [facility] [place] [facility] [address] [id number] [place] [address]- 7888 Mar, [facility] [place] [facility] [address] [id number] [place] [address]- 8380 Mar, [facility] [place] [facility] [address] [id number] [place] [address]- 1932 Feb, [facility] [place] [facility] [address] [id number] [place] [address]- 5413 Feb, [facility] [place] [facility] [address] [id number] [place] [address]- 1799 January, [facility] [place] [facility] [address] [id number] [place] [address]- 0366 January, [facility] [place] [facility] [address] [id number] [place] [address]- 7448 Dec, [facility] [place] [facility] [address] [id number] [place] [address]- 9073 Dec, [facility] [place] [facility] [address] [id number] [place] [address]- 3247 Dec, [facility] [place] [facility] [address] [id number] [place] [address]- 7958 Nov, [facility] [place] [facility] [address] [id number] [place] [address]- 4225 Nov, [facility] [place] [facility] [address] [id number] [place] [address]- 8641 Nov, [facility] [place] [facility] [address] [id number] [place] [address]- 6502 Nov, [facility] [place] [facility] [address] [id number] [place] [address]- 4535 Nov, [facility] [place] [facility] [address] [id number] [place] [address]- 8123 Oct, [facility] [place] [facility] [address] [id number] [place] [address]- 3096 Oct, [facility] [place] [facility] [address] [id number] [place] [address]- 1066 Oct, [facility] [place] [facility] [address] [id number] [place] [address]- 1066 Oct, [facility] [place] [facility] [address] [id number] [place] [address]- 3956 Oct, [facility] [place] [facility] [address] [id number] [place] [address]- 0949 Oct, [facility] [place] [facility] [address] [id number] [place] [address]- 8723 Oct, [facility] [place] [facility] [address] [id number] [place] [address]- 3935 Oct, [facility] [place] [facility] [address] [id number] [place] [address]- 9909 Oct, [facility] [place] [facility] [address] [id number] [place] [address]- 9564 Sep, [facility] [place] [facility] [address] [id number] [place] [address]- 8902 Sep, [facility] [place] [facility] [address] [id number] [place] [address]- 6797 Sep, [facility] [place] [facility] [address] [id number] [place] [address]- 9165 Sep, [facility] [place] [facility] [address] [id number], [place] [address]- 1101 Sep, [facility] [place] [facility] [address] [id number] [place] [address]- 3274 Sep, [facility] [place] [facility] [address] [id number] [place] [address]- 2486 Sep, [facility] [place] [facility] [address] [id number] [place] [address]- 5422 Sep, [facility] [id number] 1233 Aug, [facility] [address] 5579 Aug, [facility] [address] [address]- 9752 Aug, [facility] [address] [place] [address] 121344- 3782 Aug, [facility] [address] 1352 Aug, [facility] [address] [place] [address] 739091- 5059 Aug, [facility] [address] [place] [address] 03442- 8656 Aug, [facility] [address] [place] [address] 257722- 6021 Aug, [facility] [address] [address]- 1438 Aug, [facility] [address] 4178 Jul, [facility] [id number] 6733 Jul, [facility] [id number] [address]- 4811 Jul, IMMUNIZATIONS No Known Immunizations SOCIAL HISTORY Never Assessed REASON FOR VISIT cut on right thumb STeposte CCMA PLAN OF CARE Activity Details Follow Up prn Reason: VITAL SIGNS Height 64 in 2017-04-12 Weight 206.4 lbs 2017-04-12 Temperature 98.0 degrees Fahrenheit 2017-04-12 Heart Rate 90 bpm 2017-04-12 Respiratory Rate 20 2017-04-12 BMI 35.42 kg/m2 2017-04-12 Blood pressure systolic 122 mmHg 2017-04-12 Blood pressure diastolic 80 mmHg 2017-04-12 MEDICATIONS Medication Instructions Dosage Frequency Start Date End Date Duration Status Nexplanon 68 MG Active Proventil HFA 108 (90 Base) MCG/ACT Inhalation every 4 hrs 2 puffs as needed 4h Active Mupirocin 2 % Externally Three times a day 1 application to affected area 8h Mar, Apr, 10 days Active Fioricet 50-325-40 MG Orally every 4 hrs 1 tablet as needed 4h Active Zofran ODT 8 MG Orally every 8 hrs 1 tablet on the tongue and allow to dissolve as needed for nausea 8h January, 10 days Active Loratadine 10 MG Orally Once a day 1 tablet 24h Active Cyclobenzaprine HCl 10 mg Orally Once a day at nite 1 tablet Aug, Active RESULTS No Results PROCEDURES No Known procedures INSTRUCTIONS MEDICATIONS ADMINISTERED No Known Medications MEDICAL (GENERAL) HISTORY Type Description Date Medical History idiopathic intracranial hypertension Surgical History section 2009 Surgical History right shoulder surgery (scope) 2005 Hospitalization History surgery
--- OUTSIDE RECORDS SUMMARY | 2018-02-08 12:33 | XMS REPORT ---
Author Author MELANIE COPELAND Organization [facility] Address [address] [place] [address] Care Team Providers Care Germination Testing Manager Name Role Phone MELANIE COPELAND Unavailable PROBLEMS Type Condition ICD9-CM Code QST00-QZ Code Onset Dates Condition Status SNOMED Code Problem History of migraine headaches Z86.69 Active 453622785 Problem Generalized abdominal pain R10.84 Active 866686081 Problem Allergic asthma, mild intermittent, uncomplicated J45.20 Active 202128210 Problem Otalgia of both ears H92.03 Active 035658791 Problem Slow transit constipation K59.01 Active 62262225 Problem Dyspepsia R10.13 Active 806380212 Problem Epigastric pain R10.13 Active 13161886 Problem Acute swimmer''s ear of right side H60.331 Active 26823916 Problem Seasonal allergic rhinitis, unspecified chronicity, unspecified trigger J30.2 Active 631553491 ALLERGIES No Information ENCOUNTERS Encounter Location Date Diagnosis [facility] [id number] [place] [address] 00532- 2516 03 Dec, 2017 [facility] [address] [place] [id number] [place] [address] 02154- 7777 Nov, Dysfunction of both eustachian tubes H69.83 [facility] [id number] [place] [address] 90907- 2890 22 Nov, 2017 Superior glenoid labrum lesion of right shoulder, initial encounter S43.431A [place] [address] 52527- 0396 14 Nov, 2017 Otalgia of both ears H92.03 [facility] [address] [place] [address] 06601 -7721 07 Nov, 2017 Bilateral otitis media with effusion H65.93 [place] [address] [id number] [place] [address] 68661- 0338 Oct, Acute pain of right shoulder M25.511 [place] [address] 38500- 2753 Oct, [place] [address] 04552- 3498 Oct, Acute suppurative otitis media of left ear without spontaneous rupture of tympanic membrane, recurrence not specified H66.002 ; Exudative tonsillitis J03.90 and Sore throat J02.9 [place] [address] 60359- 7582 Sep, Acute intractable headache, unspecified headache type R51 [facility] [place] [address] 50464 -7196 Sep, Non-intractable vomiting with nausea, unspecified vomiting type R11.2 [place] [address] [place] [id number] [place] [address] 68022- 9584 Sep, Urinary tract infection without hematuria, site unspecified N39.0 [place] [address] 35131- 7069 Sep, Dysuria R30.0 [place] [address] [place] [id number] [place] [address] 83442- 2867 Sep, Acute swimmer''s ear of right side H60.331 ; Slow transit constipation K59.01 and Hemorrhoids, unspecified hemorrhoid type K64.9 [place] [address] [place] [id number] [place] [address] 30469- 9514 Aug, Acute midline low back pain without sciatica M54.5 [place] [address] [place] [id number] [place] [address] 45297- 1261 Jun, Encounter for Nexplanon removal Z30.46 and Oral contraception initial prescription Z30.011 [facility] [address] 50633 -2320 Jun, Seasonal allergic rhinitis, unspecified chronicity, unspecified trigger J30.2 [place] [address] 58528- 4074 Jun, [place] [address] 69140- 3178 Jun, Encounter for immunization Z23 [place] [address] 33413- 1202 Jun, [place] [address] 25462- 4297 May, [place] [address] 28490- 8243 Apr, Diarrhea, unspecified R19.7 ; Nausea with vomiting, unspecified R11.2 and RUQ pain R10.11 [place] [address] 26571- 1213 Apr, [facility] [address] 66[address] -0276 Apr, Gastroenteritis and colitis, viral A08.4 [place] [address] 07942- 1708 Mar, [facility] [address] 58672 -6633 Mar, Finger laceration, initial encounter S61.219A [place] [address] 32409- 2183 Mar, Cough R05 and Acute seasonal allergic rhinitis due to pollen J30.1 [place] [address] 37868- 1354 Mar, Splenomegaly R16.1 [place] [address] 92862- 7963 Mar, Splenomegaly R16.1 [place] [address] [place] [id number] [place] [address] 08250- 8101 28 Feb, 2017 Epigastric pain R10.13 ; Generalized abdominal pain R10.84 and Dyspepsia R10.13 [place] [address] [place] [id number] [place] [address] 38752- 6856 21 Feb, 2017 Melanocytic nevus of face, other location D22.39 [facility] [place] [address] 41818 -7019 Feb, Sore throat J02.9 and Acute nasopharyngitis (common cold) J00 [place] [address] 68709- 9859 January, Acute gastritis without hemorrhage, unspecified gastritis type K29.00 [place] [address] 12940- 4555 January, [facility] [place] [address] 07631 -7714 January, Sore throat J02.9 and Strep throat J02.0 [place] [address] 72059- 0330 14 Oct, 2016 Acute intractable headache, unspecified headache type R51 [place] [address] 34603- 0332 10 Oct, 2016 Dental examination Z01.20 [facility] [place] [address] [place] [id number] [place] [address] 18569 -6904 16 Sep, 2016 Costochondritis, acute M94.0 [place] [address] 21433- 4093 27 Aug, 2016 Acute midline low back pain without sciatica M54.5 [place] [address] 96638- 3227 07 Jul, 2016 Sebaceous cyst of labia N90.7 [place] [address] [place] [address]- 4440 Jun, Bronchitis J40 [place] [address] 46845- 0198 22 May, 2016 Encounter for immunization Z23 [place] [address] 22643- 0210 13 May, 2016 [place] [address] 28984- 5403 12 May, 2016 Seasonal allergic rhinitis due to pollen J30.1 [place] [address] 19085- 8306 Apr, Overweight E66.3 [place] [address] 67267- 2224 Feb, Arm pain, left M79.[address] Z97.5 [place] [address] 59401- 0666 Feb, Pain of left upper extremity M79.602 [place] [address] 19682- 7140 January, History of migraine headaches Z86.69 and Acute intractable headache, unspecified headache type R51 [place] [address] 46176- 8961 Oct, [facility] [place] [address] 46401 -3327 Oct, Left otitis media H66.92 [place] [address] 81387- 6151 Sep, Overweight E66.3 [facility] [place] [address] 73910 -8931 Sep, Upper respiratory tract infection, unspecified type 465.9 ; Nausea R11.0 ; Dizziness R42 ; Headache, unspecified headache type R51 and Allergic rhinitis, unspecified allergic rhinitis type J30.9 [facility] [address] [place] [address] 68954- 1292 15 Aug, 2015 Vertigo R42 and Overweight E66.3 [facility] [address] [place] [id number] [place] [address] 05535 -8596 10 Aug, 2015 Nonintractable migraine, unspecified migraine type G43.009 [facility] [address] 82817- 2915 Jul, Overweight E66.3 and Nonintractable migraine, unspecified migraine type G43.009 [facility] [place] [facility] [address] [place] [id number] [place] [address] [id number] Jul, Dental examination Z01.20 [place] [address] 10000- 7980 16 Jun, 2015 Need for meningococcus vaccine Z23 and Hepatitis A vaccination not up to date Z28.3 [place] [address] 46655- 1456 Jun, Encounter for immunization Z23 [place] [address] 78767- 0498 May, Headache 784.0 [place] [address] [place] [id number] [place] [address] 02900- 9314 Apr, Sinusitis 473.9 [place] [address] 33101- 8925 Apr, Environmental allergies V15.09 ; Wheezing 786.07 and Sinusitis 473.9 [facility] [address] [place] [id number] [place] [address] 64093- 0079 Apr, Nexplanon insertion V25.5 [facility] [place] [facility] [address] [place] [id number] [place] [address] [id number] Mar, Dental examination V72.2 [facility] [address] [place] [id number] [place] [address] 19356- 4570 Feb, control counseling V25.09 [facility] [place] [address] [id number] [place] [address]- 1644 25 Feb, 2015 Intracranial hypertension, benign 348.2 [facility] [place] [address] [id number] [place] [address]- 7804 18 Feb, 2015 [facility] [address] [place] [id number] [place] [address]- 1610 14 Dec, 2014 [facility] [place] [facility] [address] [facility] [id number] [place] [address]- 2761 Dec, [facility] [address] [facility] [id number] [place] [address]- 1988 17 Nov, 2014 [facility] [address] [facility] [id number] [place] [address]- 6804 17 Nov, 2014 [facility] [place] [facility] [address] [place] [address]- 3286 Nov, [facility] [place] [facility] [address] [facility] [id number] [place] [address]- 7633 11 Nov, 2014 [facility] [place] [facility] [address] [place] [id number] [place] [address]- 7258 Nov, [facility] [address] [place] [id number] [place] [address]- 9354 Nov, [facility] [place] [facility] [address] [place] [id number] [place] [address]- 6814 Oct, [facility] [address] [facility] [id number] [place] [address]- 7017 Oct, [facility] [address] [id number] [place] [address]- 4619 Sep, [facility] [address] [facility] [id number] [place] [address]- 1502 Sep, [facility] [address] [place] [id number] [place] [address]- 8310 Sep, [facility] [address] [facility] [id number] [place] [address]- 2699 08 Sep, 2014 [facility] [address] [id number] [place] [address]- 1183 Sep, [facility] [address] [id number] [place] [address]- 8690 Sep, [facility] [address] [id number] [place] [address]- 8021 Sep, [facility] [address] [id number] [place] [address]- 2771 Sep, [facility] [address] [id number] [place] 8803 Aug, [facility] [address] [id number] [place] [address]- 3961 Aug, [facility] [address] [id number] [place] [address]- 8345 Aug, [facility] [address] [id number] [place] [address]- 4529 17 Aug, 2014 [facility] [address] [id number] [place] [address]- 5869 16 Aug, 2014 [facility] [address] [id number] [place] [address]- 0577 16 Aug, 2014 [facility] [place] [facility] [address] [id number] [place] [address]- 8073 Aug, [facility] [place] [facility] [address] [id number] [place] [address]- 2386 Aug, [facility] [place] [facility] [address] [id number] [place] [address]- 4968 Jul, [facility] [place] [facility] [address] [id number] [place] [address]- 1740 Jul, [facility] [place] [facility] [address] [id number] [place] [address]- 2142 Jul, [facility] [place] [facility] [address] [id number] [place] [address]- 0552 Jul, [facility] [place] [facility] [address] [id number] [place] [address]- 0398 Jul, [facility] [place] [facility] [address] [id number] [place] [address]- 5233 Jun, [facility] [place] [facility] [address] [id number] [place] [address]- 6932 Jun, [facility] [place] [facility] [address] [id number] [place] [address]- 7169 Jun, [facility] [place] [facility] [address] [id number] [place] [address]- 4230 Jun, [facility] [place] [facility] [address] [id number] [place] [address]- 9708 Jun, [facility] [place] [facility] [address] [id number] [place] [address]- 0401 Apr, [facility] [place] [facility] [address] [id number] [place] [address]- 2748 Apr, [facility] [place] [facility] [address] [id number] [place] [address]- 9956 Apr, [facility] [place] [facility] [address] [id number] [place] [address]- 2618 Apr, [facility] [place] [facility] [address] [id number], [place] [address]- 3274 Apr, [facility] [place] [facility] [address] [id number] [place] [address]- 6332 Mar, [facility] [place] [facility] [address] [id number] [place] [address]- 7473 Mar, [facility] [place] [facility] [address] [id number] [place] [address]- 5806 Mar, [facility] [place] [facility] [address] [id number] [place] [address]- 8223 Mar, [facility] [place] [facility] [address] [id number] [place] [address]- 1477 Mar, [facility] [place] [facility] [address] [id number] [place] [address]- 2927 Feb, [facility] [place] [facility] [address] [id number] [place] [address]- 1709 Feb, [facility] [place] [facility] [address] [id number] [place] [address]- 9211 January, [facility] [place] [facility] [address] [id number] [place] [address]- 9815 January, [facility] [place] [facility] [address] [id number] [place] [address]- 5630 Dec, [facility] [place] [facility] [address] [id number] [place] [address]- 2500 Dec, [facility] [place] [facility] [address] [id number] [place] [address]- 2216 Dec, [facility] [place] [facility] [address] [id number] [place] [address]- 8337 Nov, [facility] [place] [facility] [address] [id number] [place] [address]- 1328 Nov, [facility] [place] [facility] [address] [id number] [place] [address]- 2634 Nov, [facility] [place] [facility] [address] [id number] [place] [address]- 3037 Nov, [facility] [place] [facility] [address] [id number] [place] [address]- 0568 Nov, [facility] [place] [facility] [address] [id number] [place] [address]- 2010 Oct, [facility] [place] [facility] [address] [id number] [place] [address]- 3220 Oct, [facility] [place] [facility] [address] [id number] [place] [address]- 2905 Oct, [facility] [place] [facility] [address] [id number] [place] [address]- 0053 Oct, [facility] [place] [facility] [address] [id number] [place] [address]- 6641 Oct, [facility] [place] [facility] [address] [id number] [place] [address]- 4148 Oct, [facility] [place] [facility] [address] [id number] [place] [address]- 6273 Oct, [facility] [place] [facility] [address] [id number] [place] [address]- 9300 Oct, [facility] [place] [facility] [address] [id number] [place] [address]- 4299 Oct, [facility] [place] [facility] [address] [id number] [place] [address]- 7154 Sep, [facility] [place] [facility] [address] [id number] [place] [address]- 8898 Sep, [facility] [place] [facility] [address] [id number] [place] [address]- 0553 Sep, [facility] [place] [facility] [address] [id number], [place] [address]- 9780 Sep, [facility] [place] [facility] [address] [id number], [place] [address]- 7842 Sep, [facility] [place] [facility] [address] [id number] [place] [address]- 4169 Sep, [facility] [place] [facility] [address] [id number], [place] [address]- 1357 Sep, [facility] [place] [facility] [address] [id number], [place] [address]- 3132 Sep, [facility] [place] [facility] [address] [id number], [place] [address]- 3132 Aug, [facility] [address] [address]- 5210 Aug, [facility] [address] 6118 Aug, [facility] [address], [place] [address]- 7361 Aug, [facility] [address] [place] [address] 001547- 4187 Aug, [facility] [address] [place] [address] 21019- 9515 Aug, [facility] [address] [place] [address] 64563- 9874 Aug, [facility] [address] [place] [address] 87971- 0811 Aug, [facility] [address], [place] [address]- 9182 Aug, [facility] [address], [place] [address]- 0629 Jul, [facility] [address], [place] [address]- 4237 Jul, [facility] [address], [place] [address]- 6843 Jul, IMMUNIZATIONS No Known Immunizations SOCIAL HISTORY Never Assessed REASON FOR VISIT Nausea PLAN OF CARE VITAL SIGNS MEDICATIONS Unknown Medications RESULTS No Results PROCEDURES No Known procedures INSTRUCTIONS MEDICATIONS ADMINISTERED No Known Medications MEDICAL (GENERAL) HISTORY Type Description Date Medical History idiopathic intracranial hypertension Surgical History section 2009 Surgical History right shoulder surgery (scope) 2006 Hospitalization History surgery
--- OUTSIDE RECORDS SUMMARY | 2018-02-08 12:33 | XMS REPORT ---
Author Author ROMY STEPHANIE Organization [facility] Address [address] [place] [address] Care Team Providers Care Senior J2Ee Developer Name Role Phone SULLY STANTONHANY Unavailable PROBLEMS Type Condition ICD9-CM Code NHN76-BR Code Onset Dates Condition Status SNOMED Code Problem Generalized abdominal pain R10.84 Active 763682215 Problem Dyspepsia R10.13 Active 536516347 Problem Epigastric pain R10.13 Active 03505019 Problem History of migraine headaches Z86.69 Active 755324945 Problem Allergic asthma, mild intermittent, uncomplicated J45.20 Active 343472752 Problem History of pre-eclampsia in prior , currently O09.299 Active Problem History of section complicating O34.219 Active 687188350 Problem Acute swimmer''s ear of right side H60.331 Active 65960160 Problem Seasonal allergic rhinitis, unspecified chronicity, unspecified trigger J30.2 Active 974608671 Problem Otalgia of both ears H92.03 Active 071790230 Problem Slow transit constipation K59.01 Active 08383002 ALLERGIES Substance Reaction Event Type Date Status Cephalexin hives Drug Allergy Jun, Active ENCOUNTERS Encounter Location Date Diagnosis [place] [address] [address] Feb, [facility] [address] [address] January, care, subsequent in first trimester Z34.81 ; 11 weeks gestation of Z3A.11 ; History of pre-eclampsia in prior , currently O09.299 and History of section complicating O34.219 [facility] [address] [address] Dec, Dental examination Z01.20 [facility] [address] [place] [id number] [place] [address]- 7780 Dec, Dental examination Z01.20 [place] [address] [address] Dec, [place] [address] [address]- [address]55 Dec, [place] [address] [address]- 2539 Dec, Encounter for test Z32.00 [place] [address] 9[address]32- 1320 Dec, [place] [address] 44308- 8452 Nov, Dysfunction of both eustachian tubes H69.83 [place] [address] 05335- 1669 Nov, Superior glenoid labrum lesion of right shoulder, initial encounter S43.431A [place] [address] 6[address]10- 0206 Nov, Otalgia of both ears H92.03 [facility] [address] [address] Nov, Bilateral otitis media with effusion H65.93 [place] [address] [address]- 4663 Oct, Acute pain of right shoulder M25.511 [place] [address] [address]61- 1956 Oct, [place] [address] 18761- 1891 Oct, Acute suppurative otitis media of left ear without spontaneous rupture of tympanic membrane, recurrence not specified H66.002 ; Exudative tonsillitis J03.90 and Sore throat J02.9 [place] [address] [place] [id number] [place] [address]23- 4318 Sep, Acute intractable headache, unspecified headache type R51 [facility] [address] [place] [id number] [place] [address] 8[address]73 -1022 Sep, Non-intractable vomiting with nausea, unspecified vomiting type R11.2 [place] [address] 34049- 0084 Sep, Urinary tract infection without hematuria, site unspecified N39.0 [place] [address] 25425- 2515 Sep, Dysuria R30.0 [place] [address] 87733- 8293 Sep, Acute swimmer''s ear of right side H60.331 ; Slow transit constipation K59.01 and Hemorrhoids, unspecified hemorrhoid type K64.9 [place] [address] 84448- 6016 Aug, Acute midline low back pain without sciatica M54.5 [place] [address] 66255- 3251 Jun, Encounter for Nexplanon removal Z30.46 and Oral contraception initial prescription Z30.011 [facility] [address] [place] [id number] [place] [address] -3451 Jun, Seasonal allergic rhinitis, unspecified chronicity, unspecified trigger J30.2 [place] [address] [place] [id number] [place] [address] 37496- 3502 Jun, [place] [address] 45457- 1655 Jun, Encounter for immunization Z23 [place] [address] [place] [id number] [place] [address] 19280- 8779 Jun, [place] [address] 69245- 9809 May, [place] [address] [place] [id number] [place] [address] 46056- 1326 Apr, Diarrhea, unspecified R19.7 ; Nausea with vomiting, unspecified R11.2 and RUQ pain R10.11 [place] [address] 71737- 0260 Apr, [facility] [place] [address] [address] Apr, Gastroenteritis and colitis, viral A08.[address] [address]- [address] Mar, [facility] [place] [address] 6[address]36 [address]2810 Mar, Finger laceration, initial encounter S61.219A [address] 02498- 9479 Mar, Cough R05 and Acute seasonal allergic rhinitis due to pollen J30.[address] 58531- 8280 Mar, Splenomegaly R16.1 [place] [address] 06362- 9844 Mar, Splenomegaly R16.1 [place] [address] 12090- 0853 Feb, Epigastric pain R10.13 ; Generalized abdominal pain R10.84 and Dyspepsia R10.13 [place] [address] 36732- 1255 Feb, Melanocytic nevus of face, other location D22.39 [facility] [place] [address] [place] [id number] [place] [address] 75886 -2868 Feb, Sore throat J02.9 and Acute nasopharyngitis (common cold) J00 [place] [address] 83301- 6737 January, Acute gastritis without hemorrhage, unspecified gastritis type K29.00 [place] [address] 27039- 0114 January, [facility] [address] 68[address] January, Sore throat J02.9 and Strep throat J02.0 [place] [address] 41903- 6503 14 Oct, 2016 Acute intractable headache, unspecified headache type R51 [place] [address] 49124- 9794 10 Oct, 2016 Dental examination Z01.20 [facility] [place] [address] 0[address]63 -7776 Sep, Costochondritis, acute M94.0 [place] [address] 17237- 8024 Aug, Acute midline low back pain without sciatica M54.5 [place] [address] 54659- 0348 Jul, Sebaceous cyst of labia N90.7 [place] [address] 40351- 9618 Jun, Bronchitis J40 [place] [address] 27884- 6201 May, Encounter for immunization Z23 [place] [address] 64920- 9187 May, [place] [address] 30794- 2111 May, Seasonal allergic rhinitis due to pollen J30.1 [place] [address] 22809- 3185 Apr, Overweight E66.3 [place] [address] [place] [id number] [place] [address] 71204- 2740 Feb, Arm pain, left M79.[address] Z97.5 [place] [address] [place] [id number] [place] [address] 79563- 4408 20 Feb, 2016 Pain of left upper extremity M79.602 [place] [address] 31849- 2307 January, History of migraine headaches Z86.69 and Acute intractable headache, unspecified headache type R51 [place] [address] 51172- 9182 08 Oct, 2015 [facility] [address] [address] Oct, Left otitis media H66.92 [place] [address] 72403- 5971 Sep, Overweight E66.3 [facility] [address] [address]69 Sep, Upper respiratory tract infection, unspecified type 465.9 ; Nausea R11.0 ; Dizziness R42 ; Headache, unspecified headache type R51 and Allergic rhinitis, unspecified allergic rhinitis type J30.9 [place] [address] [place] [id number] [place] [address] 69292- 1789 Aug, Vertigo R42 and Overweight E66.3 [facility] [place] [address] [place] [id number] [place] [address] 02587 -5403 10 Aug, 2015 Nonintractable migraine, unspecified migraine type G43.009 [place] [address] 75461- 3873 Jul, Overweight E66.3 and Nonintractable migraine, unspecified migraine type G43.009 [facility] [address] [place] [id number] [place] [id number] Jul, Dental examination Z01.20 [place] [address] [place] [id number] [place] [address] 303287- 9846 16 Jun, 2015 Need for meningococcus vaccine Z23 and Hepatitis A vaccination not up to date Z28.3 [place] [address] [place] [id number] [place] [address] 18996- 0086 10 Jun, 2015 Encounter for immunization Z23 [place] [address] 23081- 1519 May, Headache 784.0 [place] [address] 724900- 3035 Apr, Sinusitis 473.9 [place] [address] [place] [id number] [place] [address] 99822- 1216 Apr, Environmental allergies V15.09 ; Wheezing 786.07 and Sinusitis 473.9 [place] [address] [place] [id number] [place] [address] 25363- 4023 Apr, Nexplanon insertion V25.5 [facility] [address] [place] [id number] [place] [address] [id number] Mar, Dental examination V72.2 [place] [address] [place] [id number] [place] [address] 41048- 9287 Feb, control counseling V25.09 [place] [address] [place] [id number] [place] [address] 98627- 7886 Feb, Intracranial hypertension, benign 348.2 [facility] [address] [place] [id number] [place] [address] 66749- 9439 Feb, [facility] [address] 618756- 8816 14 Dec, 2014 [facility] [address] [place] [id number] [place] [address] 547291- 1488 13 Dec, 2014 [facility] [address] 60405- 5409 Nov, [facility] [place] [facility] [address] [id number] [place] [address]- 6373 Nov, [facility] [place] [facility] [address] [id number] [place] [address]- 6317 Nov, [facility] [place] [facility] [address] [id number] [place] [address]- 1518 Nov, [facility] [place] [facility] [address] [id number] [place] [address]- 2151 Nov, [facility] [place] [facility] [address] [id number] [place] [address]- 8085 Nov, [facility] [place] [facility] [address] [id number] [place] [address]- 0208 Oct, [facility] [place] [facility] [address] [id number] [place] [address]- 2233 Oct, [facility] [place] [facility] [address] [id number] [place] [address]- 4437 Sep, [facility] [place] [facility] [address] [id number] [place] [address]- 6119 Sep, [facility] [place] [facility] [address] [id number] [place] [address]- 6180 Sep, [facility] [place] [facility] [address] [id number] [place] [address]- 3935 Sep, [facility] [place] [facility] [address] [id number] [place] [address]- 3501 Sep, [facility] [place] [facility] [address] [id number] [place] [address]- 4578 Sep, [facility] [place] [facility] [address] [id number] [place] [address]- 4995 Sep, [facility] [place] [facility] [address] [id number] [place] [address]- 9882 Sep, [facility] [place] [facility] [address] [id number] [place] 2115 Aug, [facility] [place] [facility] [address] [id number] [place] 2308 Aug, [facility] [place] [facility] [address] [id number] [place] [address]- 1134 Aug, [facility] [place] [facility] [address] [id number] [place] [address]- 4900 Aug, [facility] [place] [facility] [address] [id number] [place] 7358 Aug, [facility] [place] [facility] [address] [id number] [place] 4[address] Aug, [facility] [place] [facility] [address] [id number] [place] 7106 Aug, [facility] [place] [facility] [address] [id number] [place] [address]- 3883 Aug, [facility] [place] [facility] [address] [id number] [place] [address]- 4427 Jul, [facility] [place] [facility] [address] [id number] [place] [address]- 0438 Jul, [facility] [place] [facility] [address] [id number] [place] [address]- 8063 Jul, [facility] [place] [facility] [address] [id number] [place] [address]- 0926 Jul, [facility] [place] [facility] [address] [id number] [place] [address]- 9277 Jul, [facility] [place] [facility] [address] [id number] [place] [address]- 0657 Jun, [facility] [place] [facility] [address] [id number] [place] [address]- 1987 Jun, [facility] [place] [facility] [address] [id number] [place] [address]- 6978 Jun, [facility] [place] [facility] [address] [id number] [place] [address]- 0577 Jun, [facility] [place] [facility] [address] [id number] [place] [address]- 9117 Jun, [facility] [place] [facility] [address] [id number] [place] [address]- 8513 Apr, [facility] [place] [facility] [address] [id number] [place] [address]- 7020 Apr, [facility] [place] [facility] [address] [id number] [place] [address]- 6537 Apr, [facility] [place] [facility] [address] [id number] [place] [address]- 8223 Apr, [facility] [place] [facility] [address] [id number] [place] [address]- 4066 Apr, [facility] [place] [facility] [address] [id number] [place] [address]- 9139 Mar, [facility] [place] [facility] [address] [id number] [place] [address]- 4907 Mar, [facility] [place] [facility] [address] [id number] [place] [address]- 9736 Mar, [facility] [place] [facility] [address] [id number] [place] [address]- 2330 Mar, [facility] [place] [facility] [address] [id number] [place] [address]- 3368 Mar, [facility] [place] [facility] [address] [id number] [place] [address]- 7087 Feb, [facility] [place] [facility] [address] [id number] [place] [address]- 9766 Feb, [facility] [place] [facility] [address] [id number] [place] [address]- 6939 January, [facility] [place] [facility] [address] [id number] [place] [address]- 9570 January, [facility] [place] [facility] [address] [id number] [place] [address]- 5225 Dec, [facility] [place] [facility] [address] [id number] [place] 4582 Dec, [facility] [place] [facility] [address] [facility] [id number] [place] [address]- 8636 Dec, [facility] [place] [facility] [address] [id number] [place] [address]- 8208 Nov, [facility] [place] [facility] [address] [id number] [place] [address]- 0483 Nov, [facility] [place] [facility] [address] [facility] [id number] [place] [address]- 3366 Nov, [facility] [place] [facility] [address] [facility] [id number] [place] [address]- 4090 Nov, [facility] [place] [facility] [address] [facility] [id number] [place] [address]- 3975 Nov, [facility] [place] [facility] [address] [id number] [place] [address]- 5596 Oct, [facility] [place] [facility] [address] [facility] [id number] [place] [address]- 2684 Oct, [facility] [place] [facility] [address] [facility] [id number] [place] [address]- 0458 Oct, [facility] [place] [facility] [address] [facility] [id number] [place] [address]- 5831 Oct, [facility] [place] [facility] [address] [id number] [place] [address]- 0185 Oct, [facility] [place] [facility] [address] [facility] [id number] [place] [address]- 1784 Oct, [facility] [place] [facility] [address] [facility] [id number] [place] [address]- 2526 Oct, [facility] [place] [facility] [address] [id number] [place] [address]- 3239 Oct, [facility] [place] [facility] [address] [id number] [place] [address]- 1773 Oct, [facility] [place] [facility] [address] [id number] [place] [address]- 4440 Sep, [facility] [place] [facility] [address] [id number] [place] [address]- 7233 Sep, [facility] [place] [facility] [address] [id number] [place] [address]- 2943 Sep, [facility] [place] [facility] [address] [id number] [place] [address]- 3928 Sep, [facility] [place] [facility] [address] [facility] [id number] [place] [address]- 3658 Sep, [facility] [place] [facility] [address] [id number] [place] [address]- 3778 Sep, [facility] [place] [facility] [address] [id number] [place] [address]- 9643 Sep, [facility] [place] [facility] [address] [id number] [place] [address]- 2144 Sep, [facility] [place] [facility] [address] [id number] [address]- 4342 Aug, [facility] [place] [facility] [address] [id number] [address]- 3256 Aug, [facility] [place] [facility] [address] [id number] [place] [address]- 4553 Aug, [facility] [place] [facility] [address] [id number] [place] [address]- 2188 Aug, [facility] [place] [facility] [address] [id number] [place] [address]- 6711 Aug, [facility] [place] [facility] [address] [facility] [id number] [place] [address]- 4935 Aug, [facility] [address] [id number] [address]- 9132 Aug, [facility] [id number] [address]- 4641 Aug, [facility] [id number] [address]- 4053 Aug, [facility] [id number] [address]- 2909 Jul, [facility] [id number] [address]- 6161 Jul, [facility] [id number] [address]- 8481 Jul, IMMUNIZATIONS No Known Immunizations SOCIAL HISTORY Never Assessed REASON FOR VISIT Nexplanon removal-SUNIL Owens PLAN OF CARE Activity Details Follow Up prn Reason: VITAL SIGNS Height 64 in 2017-07-13 Weight 204 lbs 2017-07-13 Temperature 98.2 degrees Fahrenheit 2017-07-13 Heart Rate 110 bpm 2017-07-13 Respiratory Rate 18 2017-07-13 BMI 35.01 kg/m2 2017-07-13 Blood pressure systolic 118 mmHg 2017-07-13 Blood pressure diastolic 78 mmHg 2017-07-13 MEDICATIONS Medication Instructions Dosage Frequency Start Date End Date Duration Status Ortho Tri-Cyclen Lo 0.18/0.215/0.25 MG-25 MCG Orally Once a day 1 tablet 24h Jun, 28 day(s) Active RESULTS Name Result Date Reference Range TEST, URINE (IN HOUSE) 2017-07-13 RESULTS negative Lot # [id number] Control + Exp date 10/17/2018 PROCEDURES Procedure Date Ordered Result Body Site NEXPLANON REMOVAL 2017-07-13 N/A REMOVE DRUG IMPLANT DEVICE Jul 13, 2017 URINE TEST Jul 13, 2017 INSTRUCTIONS MEDICATIONS ADMINISTERED No Known Medications MEDICAL (GENERAL) HISTORY Type Description Date Medical History idiopathic intracranial hypertension Surgical History section 2009 Surgical History right shoulder surgery (scope) 2005 Hospitalization History surgery
--- OUTSIDE RECORDS SUMMARY | 2018-02-08 12:34 | XMS REPORT ---
Author Author PENELOPE ALANIS Organization [facility] Address [address] [place] [address] Care Team Providers Care Claims Configuration Analyst Name Role Phone PENELOPE ALANIS Unavailable PROBLEMS Type Condition ICD9-CM Code CGT08-YB Code Onset Dates Condition Status SNOMED Code Problem History of migraine headaches Z86.69 Active 779887086 Problem Generalized abdominal pain R10.84 Active 136913853 Problem Allergic asthma, mild intermittent, uncomplicated J45.20 Active 048091612 Problem Otalgia of both ears H92.03 Active 512042076 Problem Slow transit constipation K59.01 Active 35087271 Problem Dyspepsia R10.13 Active 972031599 Problem Epigastric pain R10.13 Active 66104790 Problem Acute swimmer''s ear of right side H60.331 Active 73922707 Problem Seasonal allergic rhinitis, unspecified chronicity, unspecified trigger J30.2 Active 294879402 ALLERGIES No Information ENCOUNTERS Encounter Location Date Diagnosis [place] [id number] [place] [address] 44652- 4637 Nov, Dysfunction of both eustachian tubes H69.83 [facility] [address] [place] [id number] [place] [address] 60926- 2232 Nov, Superior glenoid labrum lesion of right shoulder, initial encounter S43.431A [facility] [address] [place] [address] 54867- 1366 14 Nov, 2017 Otalgia of both ears H92.03 [facility] [address] [place] [address] 72522 -0634 Nov, Bilateral otitis media with effusion H65.93 [facility] [address] [place] [address] [id number] [place] [address] 17325- 3418 Oct, Acute pain of right shoulder M25.511 [place] [address] [place] [id number] [place] [address] 62300- 7009 Oct, [place] [address] [place] [id number]- 7434 Oct, Acute suppurative otitis media of left ear without spontaneous rupture of tympanic membrane, recurrence not specified H66.002 ; Exudative tonsillitis J03.90 and Sore throat J02.9 [place] [address] [place] [id number] [place] [address] 43660- 5455 Sep, Acute intractable headache, unspecified headache type R51 [facility] [place] [address] 8[address]80 -1794 Sep, Non-intractable vomiting with nausea, unspecified vomiting type R11.2 [place] [address] 51965- 5273 Sep, Urinary tract infection without hematuria, site unspecified N39.0 [place] [address] [place] [id number] [place] [address] 58503- 0688 Sep, Dysuria R30.0 [place] [address] 34823- 4236 Sep, Acute swimmer''s ear of right side H60.331 ; Slow transit constipation K59.01 and Hemorrhoids, unspecified hemorrhoid type K64.9 [place] [address] [place] [id number] [place] [address] 28771- 5044 Aug, Acute midline low back pain without sciatica M54.5 [place] [address] 25159- 2540 Jun, Encounter for Nexplanon removal Z30.46 and Oral contraception initial prescription Z30.011 [facility] [address] [place] [id number] [place] [address] 20626 -6370 Jun, Seasonal allergic rhinitis, unspecified chronicity, unspecified trigger J30.2 [place] [address] 36208- 8536 Jun, [place] [address] 02232- 7853 Jun, Encounter for immunization Z23 [place] [address] 85911- 7308 Jun, [place] [address] 45388- 4863 May, [place] [address] 76706- 1040 Apr, Diarrhea, unspecified R19.7 ; Nausea with vomiting, unspecified R11.2 and RUQ pain R10.11 [place] [address] 12579- 2759 Apr, [facility] [address] 92115 -4163 Apr, Gastroenteritis and colitis, viral A08.4 [place] [address] 95592- 1978 Mar, [facility] [address] 41250 -7373 Mar, Finger laceration, initial encounter S61.219A [place] [address] 96057- 2740 Mar, Cough R05 and Acute seasonal allergic rhinitis due to pollen J30.1 [place] [address] 36342- 1011 Mar, Splenomegaly R16.1 [place] [address] 90782- 6684 Mar, Splenomegaly R16.1 [place] [address] 26319- 9587 Feb, Epigastric pain R10.13 ; Generalized abdominal pain R10.84 and Dyspepsia R10.13 [place] [address] [place] [id number] [place] [address] 41679- 6705 Feb, Melanocytic nevus of face, other location D22.39 [facility] [place] [address] 40326 -8732 12 Feb, 2017 Sore throat J02.9 and Acute nasopharyngitis (common cold) J00 [place] [address] 05916- 0641 January, Acute gastritis without hemorrhage, unspecified gastritis type K29.00 [place] [address] 89553- 6289 January, [place] [address] 12877 -1169 January, Sore throat J02.9 and Strep throat J02.0 [place] [address] 38073- 5521 14 Oct, 2016 Acute intractable headache, unspecified headache type R51 [place] [address] 63158- 1840 10 Oct, 2016 Dental examination Z01.20 [place] [address] 08621 -9877 Sep, Costochondritis, acute M94.0 [place] [address] 04472- 5607 Aug, Acute midline low back pain without sciatica M54.5 [place] [address] 63111- 4483 07 Jul, 2016 Sebaceous cyst of labia N90.7 [place] [address] 83388- 0986 Jun, Bronchitis J40 [place] [address] [place] [address]- 1744 22 May, 2016 Encounter for immunization Z23 [place] [address] 01455- 3548 13 May, 2016 [place] [address] [place] [id number] [place] [address] 63110- 6333 12 May, 2016 Seasonal allergic rhinitis due to pollen J30.1 [place] [address] 14857- 1971 Apr, Overweight E66.3 [place] [address] 29132- 1958 Feb, Arm pain, left M79.[address] Z97.5 [place] [address] 49623- 3805 Feb, Pain of left upper extremity M79.602 [place] [address] 54539- 5118 January, History of migraine headaches Z86.69 and Acute intractable headache, unspecified headache type R51 [place] [address] 82464- 4675 08 Oct, 2015 [facility] [place] [address] [place] [id number] [place] [address] 25057 -3022 Oct, Left otitis media H66.92 [place] [address] 27582- 3747 Sep, Overweight E66.3 [facility] [place] [id number] [place] [address] 11136 -6873 Sep, Upper respiratory tract infection, unspecified type 465.9 ; Nausea R11.0 ; Dizziness R42 ; Headache, unspecified headache type R51 and Allergic rhinitis, unspecified allergic rhinitis type J30.9 [place] [address] [place] [id number] [place] [address] 33749- 4497 Aug, Vertigo R42 and Overweight E66.3 [facility] [address] [place] [id number] [place] [address] 04938 -2445 Aug, Nonintractable migraine, unspecified migraine type G43.009 [facility] [address] 81903- 7887 Jul, Overweight E66.3 and Nonintractable migraine, unspecified migraine type G43.009 [facility] [address] [id number] Jul, Dental examination Z01.20 [place] [address] 24072- 6277 Jun, Need for meningococcus vaccine Z23 and Hepatitis A vaccination not up to date Z28.3 [facility] [address] 19231- 1113 Jun, Encounter for immunization Z23 [facility] [address] 50278- 7385 May, Headache 784.0 [place] [address] 64676- 6002 Apr, Sinusitis 473.9 [place] [address] 89577- 2608 Apr, Environmental allergies V15.09 ; Wheezing 786.07 and Sinusitis 473.9 [place] [address] 26745- 6326 Apr, Nexplanon insertion V25.5 [facility] [address] [place] [id number] [place] [address] [id number] Mar, Dental examination V72.2 [facility] [address] 54596- 4153 Feb, control counseling V25.09 [place] [address] 78823- 4715 Feb, Intracranial hypertension, benign 348.2 [facility] [place] [facility] [address] [id number] [place] [address]- 5902 18 Feb, 2015 [facility] [place] [facility] [address] [id number] [place] [address]- 2076 14 Dec, 2014 [facility] [place] [facility] [address] [id number] [place] [address]- 6825 Dec, [facility] [place] [facility] [address] [id number] [place] [address]- 2373 17 Nov, 2014 [facility] [place] [facility] [address] [id number] [place] [address]- 2233 17 Nov, 2014 [facility] [place] [facility] [address] [id number] [place] [address]- 4684 Nov, [facility] [place] [facility] [address] [facility] [id number] [place] [address]- 4809 Nov, [facility] [place] [facility] [address] [id number] [place] [address]- 9104 Nov, [facility] [place] [facility] [address] [id number] [place] [address]- 9145 Nov, [facility] [place] [facility] [address] [facility] [id number] [place] [address]- 3164 Oct, [facility] [place] [facility] [address] [facility] [id number] [place] [address]- 0864 Oct, [facility] [place] [facility] [address] [id number] [place] [address]- 2192 Sep, [facility] [place] [facility] [address] [id number] [place] [address]- 6953 Sep, [facility] [place] [facility] [address] [facility] [id number] [place] [address]- 9180 Sep, [facility] [place] [facility] [address] [facility] [id number] [place] [address]- 7046 Sep, [facility] [place] [facility] [address] [id number] [place] [address]- 6015 07 Sep, 2014 [facility] [address] [id number] [place] [address]- 0907 Sep, [facility] [address] [id number] [place] [address]- 8852 Sep, [facility] [address] [id number] [place] [address]- 9474 Sep, [facility] [address] [id number] [place] [address]- 7293 Aug, [facility] [address] [id number] [place] [address]- 3854 Aug, [facility] [address] [id number] [place] [address]- 3579 Aug, [facility] [address] [id number] [place] [address]- 8663 Aug, [facility] [address] [id number] [place] [address]- 5946 Aug, [facility] [address] [id number] [place] [address]- 5083 Aug, [facility] [address] [id number] [place] [address]- 9240 Aug, [facility] [place] [facility] [address] [id number] [place] [address]- 6301 Aug, [facility] [place] [facility] [address] [id number] [place] [address]- 8141 Jul, [facility] [place] [facility] [address] [id number] [place] [address]- 3061 Jul, [facility] [place] [facility] [address] [id number] [place] [address]- 9035 Jul, [facility] [place] [facility] [address] [id number] [place] [address]- 4271 Jul, [facility] [place] [facility] [address] [id number] [place] [address]- 4110 Jul, [facility] [place] [facility] [address] [id number] [place] [address]- 8724 Jun, [facility] [place] [facility] [address] [id number] [place] [address]- 0822 Jun, [facility] [place] [facility] [address] [id number] [place] [address]- 0230 Jun, [facility] [place] [facility] [address] [id number] [place] 2641 Jun, [facility] [place] [facility] [address] [id number] [place] [address]- 1479 Jun, [facility] [place] [facility] [address] [id number] [place] [address]- 3267 Apr, [facility] [place] [facility] [address] [id number] [place] [address]- 6199 Apr, [facility] [place] [facility] [address] [id number] [place] [address]- 4896 Apr, [facility] [place] [facility] [address] [id number] [place] [address]- 5189 Apr, [facility] [place] [facility] [address] [id number] [place] [address]- 4161 Apr, [facility] [place] [facility] [address] [id number] [place] [address]- 3426 Mar, [facility] [place] [facility] [address] [id number] [place] [address]- 8991 Mar, [facility] [place] [facility] [address] [id number] [place] [address]- 6333 Mar, [facility] [place] [facility] [address] [id number] [place] [address]- 2458 Mar, [facility] [place] [facility] [address] [id number] [address]- 8665 Mar, [facility] [place] [facility] [address] [id number] [place] [address]- 2016 Feb, [facility] [place] [facility] [address] [id number] [place] [address]- 1890 Feb, [facility] [place] [facility] [address] [id number] [place] [address]- 1004 January, [facility] [place] [facility] [address] [id number] [place] [address]- 6973 January, [facility] [place] [facility] [address] [id number] [place] [address]- 1181 Dec, [facility] [place] [facility] [address] [id number] [place] [address]- 4167 Dec, [facility] [place] [facility] [address] [id number] [place] [address]- 4997 Dec, [facility] [place] [facility] [address] [id number] [place] [address]- 1320 Nov, [facility] [place] [facility] [address] [id number] [place] [address]- 4693 Nov, [facility] [place] [facility] [address] [facility] [id number] [place] [address]- 8213 Nov, [facility] [place] [facility] [address] [id number] [place] [address]- 6809 Nov, [facility] [place] [facility] [address] [id number] [place] [address]- 6340 Nov, [facility] [place] [facility] [address] [id number] [place] [address]- 0289 Oct, [facility] [place] [facility] [address] [id number] [place] [address]- 3844 Oct, [facility] [place] [facility] [address] [id number] [place] [address]- 5371 Oct, [facility] [place] [facility] [address] [id number] [place] [address]- 8879 Oct, [facility] [place] [facility] [address] [id number] [place] [address]- 9927 Oct, [facility] [place] [facility] [address] [id number] [place] [address]- 0462 Oct, [facility] [place] [facility] [address] [id number] [place] [address]- 7616 Oct, [facility] [place] [facility] [address] [id number] [place] [address]- 2429 Oct, [facility] [place] [facility] [address] [id number] [place] [address]- 8975 Oct, [facility] [place] [facility] [address] [id number] [place] [address]- 1114 Sep, [facility] [place] [facility] [address] [id number] [place] [address]- 5736 Sep, [facility] [place] [facility] [address] [id number] [place] [address]- 1972 Sep, [facility] [place] [facility] [address] [id number] [place] [address]- 3757 Sep, [facility] [place] [facility] [address] [id number] [address]- 2841 Sep, [facility] [place] [facility] [address] [id number] [place] [address]- 1262 Sep, [facility] [place] [facility] [address] [id number] [place] [address]- 4821 Sep, [facility] [place] [facility] [address] [id number] [place] [address]- 7600 Sep, [facility] [place] [facility] [address] [id number] [place] [address]- 7784 Aug, [facility] [place] [facility] [address] [id number] [place] [address]- 4618 Aug, [facility] [address] [address]- 2299 Aug, [facility] [address] [address] 1145 Aug, [facility] [address] [place] [address] 89792- 7215 Aug, [facility] [address] [place] [address] 06373- 7121 Aug, [facility] [address] [place] [address] 79362- 6310 Aug, [facility] [address] [place] [address] 33749- 1087 Aug, [facility] [address] [place] [address] 68781- 2418 Aug, [facility] [address] [address]- 2412 Jul, [facility] [address] [address]- 0674 Jul, [facility] [address] [id number] [address]- 4468 Jul, IMMUNIZATIONS No Known Immunizations SOCIAL HISTORY Never Assessed REASON FOR VISIT Lab (walk-in) PLAN OF CARE VITAL SIGNS MEDICATIONS No Known Medications RESULTS Name Result Date Reference Range CBC 2017-03-23 WBC 8.2 3.4-10.8 RBC 4.49 3.77-5.28 Hemoglobin 12.6 11.1-15.9 Hematocrit 37.9 34.0-46.6 MCV 84 79-97 MCH 28.1 26.6-33.0 MCHC 33.2 31.5-35.7 RDW 13.0 12.3-15.4 Platelets 316 150-379 Neutrophils 62 Lymphs 30 Monocytes 7 Eos 1 Basos 0 Neutrophils (Absolute) 5.0 1.4-7.0 Lymphs (Absolute) 2.5 0.7-3.1 Monocytes(Absolute) 0.6 0.1-0.9 Eos (Absolute) 0.1 0.0-0.4 Baso (Absolute) 0.0 0.0-0.2 Immature Granulocytes 0 Immature Grans (Abs) 0.0 0.0-0.1 RA (RHEUMATOID) FACTOR 2017-03-23 RA Latex Turbid. <10.0 0.0-13.9 TATO 2017-03-23 Antinuclear Antibodies, IFA Positive Homogeneous Pattern Nucleolar Pattern Speckled Pattern 1:160 Centromere Pattern Spindle Apparatus Pattern Nuclear Membrane Pattern Midbody Pattern Nuclear Dot Pattern PCNA Pattern Centriole Pattern Note: CMP 2017-03-23 Glucose, Serum 88 65-99 BUN 11 6-20 Creatinine, Serum 0.83 0.57-1.00 eGFR If NonAfricn Am 96 >59 eGFR If Africn Am 111 >59 BUN/Creatinine Ratio 13 9-23 Sodium, Serum 139 134-144 Potassium, Serum 4.1 3.5-5.2 Chloride, Serum 99 96-106 Carbon Dioxide, Total 22 18-29 Calcium, Serum 9.7 8.7-10.2 Protein, Total, Serum 7.6 6.0-8.5 Albumin, Serum 4.6 3.5-5.5 Globulin, Total 3.0 1.5-4.5 A/G Ratio 1.5 1.2-2.2 Bilirubin, Total 0.4 0.0-1.2 Alkaline Phosphatase, S 113 39-117 AST (SGOT) 15 0-40 ALT (SGPT) 17 0-32 HEPATITIS PROFILE 2017-03-23 Hep A Ab, IgM Negative Negative HBsAg Screen Negative Negative Hep B Core Ab, IgM Negative Negative Hep C Virus Ab <0.1 0.0-0.9 PROCEDURES Procedure Date Ordered Result Body Site COMPLETE CBC W/AUTO DIFF WBC March 23, 2017 RHEUMATOID FACTOR, QUANT March 23, 2017 COMPREHEN METABOLIC PANEL March 23, 2017 ANTINUCLEAR ANTIBODIES March 23, 2017 VENIPUNCT, ROUTINE* March 23, 2017 ACUTE HEPATITIS PANEL March 23, 2017 INSTRUCTIONS MEDICATIONS ADMINISTERED No Known Medications MEDICAL (GENERAL) HISTORY Type Description Date Medical History idiopathic intracranial hypertension Surgical History section 2009 Surgical History right shoulder surgery (scope) 2005 Hospitalization History surgery
--- OUTSIDE RECORDS SUMMARY | 2018-02-08 12:35 | XMS REPORT ---
Author Author MELANIE COPELAND Organization [facility] Address [address] [place] [address] Care Team Providers Care Assurance Senior Name Role Phone MELANIE COPELAND Unavailable PROBLEMS Type Condition ICD9-CM Code RKZ35-GO Code Onset Dates Condition Status SNOMED Code Problem History of migraine headaches Z86.69 Active 121765978 Problem Generalized abdominal pain R10.84 Active 663473453 Problem Allergic asthma, mild intermittent, uncomplicated J45.20 Active 242378682 Problem Otalgia of both ears H92.03 Active 568258456 Problem Slow transit constipation K59.01 Active 01466308 Problem Dyspepsia R10.13 Active 066266847 Problem Epigastric pain R10.13 Active 51944769 Problem Acute swimmer''s ear of right side H60.331 Active 83775415 Problem Seasonal allergic rhinitis, unspecified chronicity, unspecified trigger J30.2 Active 992929039 ALLERGIES No Information ENCOUNTERS Encounter Location Date Diagnosis [place] [id number] [place] [address] 64692- 2457 January, [place] [address] [place] [id number] [place] [address] 44984- 9322 Dec, Dental examination Z01.20 [facility] [address] [place] [id number] [place] [address] 34358- 2820 Dec, Dental examination Z01.20 [facility] [address] [place] [id number] [place] [address] 02281- 8512 Dec, [facility] [address] 77676- 3997 Dec, [facility] [address] [place] [id number] [place] [address] 57833- 2173 Dec, Encounter for test Z32.00 [place] [address] [place] [id number] [place] [address] 41102- 0796 Dec, [place] [address] [place] [id number] [place] [address] 99667- 6798 Nov, Dysfunction of both eustachian tubes H69.83 [place] [address] [place] [id number] [place] [address] 59724- 4989 Nov, Superior glenoid labrum lesion of right shoulder, initial encounter S43.431A [place] [address] [place] [id number] [place] [address] 73000- 1059 Nov, Otalgia of both ears H92.03 [facility] WALK IN [place] [address] 23164 -8945 Nov, Bilateral otitis media with effusion H65.93 [place] [address] 80862- 9091 Oct, Acute pain of right shoulder M25.511 [place] [address] 07253- 8819 Oct, [place] [address] [place] [id number] [place] [address] 11514- 0960 Oct, Acute suppurative otitis media of left ear without spontaneous rupture of tympanic membrane, recurrence not specified H66.002 ; Exudative tonsillitis J03.90 and Sore throat J02.9 [place] [address] [place] [id number] [place] [address] 31537- 8724 Sep, Acute intractable headache, unspecified headache type R51 [facility] [address] 50394 -2437 Sep, Non-intractable vomiting with nausea, unspecified vomiting type R11.2 [place] [address] [place] [id number] [place] [address] 89362- 3753 Sep, Urinary tract infection without hematuria, site unspecified N39.0 [place] [address] [place] [id number] [place] [address] 49670- 5068 Sep, Dysuria R30.0 [place] [address] 93016- 0806 Sep, Acute swimmer''s ear of right side H60.331 ; Slow transit constipation K59.01 and Hemorrhoids, unspecified hemorrhoid type K64.9 [place] [address] 46881- 6073 Aug, Acute midline low back pain without sciatica M54.5 [place] [address] 11330- 1539 Jun, Encounter for Nexplanon removal Z30.46 and Oral contraception initial prescription Z30.011 [facility] [place] [address] [place] [id number] [place] [address] 33982 -6417 Jun, Seasonal allergic rhinitis, unspecified chronicity, unspecified trigger J30.2 [place] [address] [place] [id number] [place] [address] 35004- 3514 Jun, [place] [address] 45972- 7370 Jun, Encounter for immunization Z23 [place] [address] [place] [id number] [place] [address] 27442- 2569 Jun, [place] [address] [place] [id number] [place] [address] 14275- 3752 May, [place] [address] [place] [id number] [place] [address] 20671- 3803 Apr, Diarrhea, unspecified R19.7 ; Nausea with vomiting, unspecified R11.2 and RUQ pain R10.11 [place] [address] [place] [id number] [place] [address] 70333- 6873 Apr, [facility] [address] 83483 -4482 Apr, Gastroenteritis and colitis, viral A08.4 [place] [address] 34352- 4656 Mar, [facility] IN [place] [address] 64957 -0317 Mar, Finger laceration, initial encounter S61.219A [place] [address] 62559- 3592 Mar, Cough R05 and Acute seasonal allergic rhinitis due to pollen J30.1 [place] [address] 10167- 3056 Mar, Splenomegaly R16.1 [place] [address] 35802- 7600 Mar, Splenomegaly R16.1 [place] [address] 41471- 3359 Feb, Epigastric pain R10.13 ; Generalized abdominal pain R10.84 and Dyspepsia R10.13 [place] [address] 98634- 2326 Feb, Melanocytic nevus of face, other location D22.39 [facility] [place] [address] 43708 -5943 Feb, Sore throat J02.9 and Acute nasopharyngitis (common cold) J00 [place] [address] 72902- 5488 January, Acute gastritis without hemorrhage, unspecified gastritis type K29.00 [place] [address] 46287- 2133 January, [facility]ALK IN [facility] [address] 18364 -9702 January, Sore throat J02.9 and Strep throat J02.0 [place] [address] 45680- 1848 14 Oct, 2016 Acute intractable headache, unspecified headache type R51 [place] [address] 39046- 7363 10 Oct, 2016 Dental examination Z01.20 [facility] [address] 16233 -1051 16 Sep, 2016 Costochondritis, acute M94.0 [facility] [address] 28469- 3602 27 Aug, 2016 Acute midline low back pain without sciatica M54.5 [place] [address] 43897- 7969 07 Jul, 2016 Sebaceous cyst of labia N90.7 [place] [address] 34580- 9959 Jun, Bronchitis J40 [place] [address] 52829- 0419 22 May, 2016 Encounter for immunization Z23 [place] [address] 13581- 5084 13 May, 2016 [place] [address] 36397- 1318 12 May, 2016 Seasonal allergic rhinitis due to pollen J30.1 [place] [address] 21541- 5523 Apr, Overweight E66.3 [place] [address] 66979- 5482 24 Feb, 2016 Arm pain, left M79.[address] Z97.5 [place] [address] 36901- 8040 20 Feb, 2016 Pain of left upper extremity M79.602 [place] [address] 95477- 4133 January, History of migraine headaches Z86.69 and Acute intractable headache, unspecified headache type R51 [place] [address] 41376- 1949 Oct, [facility] [address] [place] [id number] [place] [address] 67325 -4791 Oct, Left otitis media H66.92 [place] [address] 36817- 8127 Sep, Overweight E66.3 [facility] IN [facility] [address] 96264 -6747 Sep, Upper respiratory tract infection, unspecified type 465.9 ; Nausea R11.0 ; Dizziness R42 ; Headache, unspecified headache type R51 and Allergic rhinitis, unspecified allergic rhinitis type J30.9 [place] [address] 76664- 0537 15 Aug, 2015 Vertigo R42 and Overweight E66.3 [facility] IN [facility] [address] [place] [id number] [place] [address] 89513 -7284 Aug, Nonintractable migraine, unspecified migraine type G43.009 [place] [address] [place] [id number] [place] [address] 14536- 2611 Jul, Overweight E66.3 and Nonintractable migraine, unspecified migraine type G43.009 [facility] [address] [place] [id number] [place] [address] [id number] Jul, Dental examination Z01.20 [place] [address] 93196- 2675 16 Jun, 2015 Need for meningococcus vaccine Z23 and Hepatitis A vaccination not up to date Z28.3 [place] [address] 11408- 4835 10 Jun, 2015 Encounter for immunization Z23 [place] [address] 23202- 4202 May, Headache 784.0 [facility] [address] [place] [id number] [place] [address] 56301- 1749 Apr, Sinusitis 473.9 [facility] [address] [place] [id number] [place] [address] 450088- 1683 Apr, Environmental allergies V15.09 ; Wheezing 786.07 and Sinusitis 473.9 [facility] [address] [place] [id number] [place] [address] 82554- 2735 Apr, Nexplanon insertion V25.5 [facility] [address] [place] [id number] [place] [address] [id number] Mar, Dental examination V72.2 [facility] [address] [place] [id number] [place] [address] 21985- 4134 Feb, control counseling V25.09 [facility] [address] 26759- 5801 Feb, Intracranial hypertension, benign 348.2 [facility] [address] [place] [id number] [place] [address] 00770- 5120 Feb, [facility] [address] [place] [id number] [place] [address] 10729- 8704 Dec, [facility] [address] [place] [id number] [place] [address] 81038- 4450 Dec, [facility] [address] [place] [id number] [place] [address] 42722- 5161 Nov, [facility] [address] [place] [id number] [place] [address] 05867- 2586 17 Nov, 2014 [facility] [address] [place] [id number] [place] [address] 288094- 2006 11 Nov, 2014 [facility] [address] [place] [id number] [place] [address] 751870- 0413 11 Nov, 2014 [facility] [address] [place] [id number] [place] [address] 50010- 1973 Nov, [facility] [place] [facility] [address] [id number] [place] [address]- 3835 Nov, [facility] [place] [facility] [address] [id number] [place] [address]- 0176 Oct, [facility] [place] [facility] [address] [facility] [id number] [place] [address]- 2616 Oct, [facility] [place] [facility] [address] [id number] [place] [address]- 4676 Sep, [facility] [place] [facility] [address] [id number] [place] [address]- 0892 Sep, [facility] [place] [facility] [address] [id number] [place] [address]- 6189 Sep, [facility] [place] [facility] [address] [id number] [place] [address]- 9482 Sep, [facility] [place] [facility] [address] [id number] [place] [address]- 8595 Sep, [facility] [place] [facility] [address] [id number] [place] [address]- 9807 Sep, [facility] [place] [facility] [address] [id number] [place] [address]- 3799 Sep, [facility] [place] [facility] [address] [id number], [place] [address]- 0461 Sep, [facility] [place] [facility] [address] [id number], [place] [address]- 2806 Aug, [facility] [place] [facility] [address] [id number] [place] [address]- 6430 Aug, [facility] [place] [facility] [address] [id number] [place] [address]- 9546 Aug, [facility] [place] [facility] [address] [id number] [place] [address]- 1456 Aug, [facility] [place] [facility] [address] [id number] [place] [address]- 5100 Aug, [facility] [place] [facility] [address] [id number] [place] [address]- 5211 Aug, [facility] [place] [facility] [address] [id number] [place] 9584 Aug, [facility] [place] [facility] [address] [id number] [place] [address]- 1602 Aug, [facility] [place] [facility] [address] [id number] [place] [address]- 0744 Jul, [facility] [place] [facility] [address] [id number] [place]- 9954 Jul, [facility] [place] [facility] [address] [id number] [place] [address]- 2042 Jul, [facility] [place] [facility] [address] [id number] [place] [address]- 4112 Jul, [facility] [place] [facility] [address] [id number] [place] [address]- 5172 Jul, [facility] [place] [facility] [address] [id number] [place] [address]- 4666 Jun, [facility] [place] [facility] [address] [id number] [place] [address]- 5140 Jun, [facility] [place] [facility] [address] [id number] [place] [address]- 0705 Jun, [facility] [place] [facility] [address] [id number] [place] [address]- 7653 Jun, [facility] [place] [facility] [address] [id number] [place] 1613 Jun, [facility] [place] [facility] [address] [id number] [place] [address]- 7959 Apr, [facility] [place] [facility] [address] [id number] [place] 6954 Apr, [facility] [place] [facility] [address] [id number] [place] [address]- 0614 Apr, [facility] [place] [facility] [address] [id number] [place] [address]- 3494 Apr, [facility] [place] [facility] [address] [id number] [place] [address]- 6739 Apr, [facility] [place] [facility] [address] [id number] [place] [address]- 9354 Mar, [facility] [place] [facility] [address] [id number] [place] [address]- 2143 Mar, [facility] [place] [facility] [address] [id number] [place] [address]- 6921 Mar, [facility] [place] [facility] [address] [id number] [place] [address]- 5922 Mar, [facility] [place] [facility] [address] [id number] [place] [address]- 0296 Mar, [facility] [place] [facility] [address] [id number] [place] [address]- 7527 Feb, [facility] [place] [facility] [address] [id number] [place] [address]- 7121 Feb, [facility] [place] [facility] [address] [id number] [place] [address]- 6484 January, [facility] [place] [facility] [address] [id number] [place] [address]- 1045 January, [facility] [place] [facility] [address] [id number] [place] [address]- 6725 Dec, [facility] [place] [facility] [address] [id number] [place] [address]- 3552 Dec, [facility] [place] [facility] [address] [id number] [place] [address]- 3866 Dec, [facility] [place] [facility] [address] [id number] [place] [address]- 3934 Nov, [facility] [place] [facility] [address] [id number] [place] [address]- 9417 Nov, [facility] [place] [facility] [address] [id number] [place] [address]- 9606 Nov, [facility] [place] [facility] [address] [id number] [place] [address]- 8192 Nov, [facility] [place] [facility] [address] [id number] [place] [address]- 7998 Nov, [facility] [place] [facility] [address] [id number] [place] [address]- 0170 Oct, [facility] [place] [facility] [address] [id number] [place] [address]- 6412 Oct, [facility] [place] [facility] [address] [id number] [place] [address]- 5943 Oct, [facility] [place] [facility] [address] [id number] [place] [address]- 8493 Oct, [facility] [place] [facility] [address] [id number] [place] [address]- 0042 Oct, [facility] [place] [facility] [address] [facility] [id number] [place] [address]- 8167 Oct, [facility] [place] [facility] [address] [id number] [place] [address]- 2532 Oct, [facility] [place] [facility] [address] [facility] [id number] [place] [address]- 7973 Oct, [facility] [place] [facility] [address] [id number] [place] 7841 Oct, [facility] [place] [facility] [address] [facility] [id number] [place] [address]- 1720 Sep, [facility] [place] [facility] [address] [id number] [place] [address]- 5152 Sep, [facility] [address] [id number] [place] [address]- 4148 Sep, [facility] [place] [facility] [address] [id number] [place] [address]- 4633 Sep, [facility] [place] [facility] [address] [id number] [place] [address]- 6785 Sep, [facility] [place] [facility] [address] [id number] [place] [address]- 5014 Sep, [facility] [place] [facility] [address] [id number] [place] [address]- 5485 Sep, [facility] [place] [facility] [address] [id number] [place] [address]- 6649 Sep, [facility] [place] [facility] [address] [id number] [place] [address]- 0648 Aug, [facility] [place] [facility] [address] [id number] [place] [address]- 3268 31 Aug, 2013 [facility] [place] [facility] [address] [id number] [place] [address]- 2553 31 Aug, 2013 [facility] [place] [facility] [address] [id number] [place] [address]- 0807 31 Aug, 2013 [facility] [place] [facility] [address] [id number], [place] [address]- 4154 27 Aug, 2013 [facility] [place] [facility] [address] [id number], [place] [address]- 7215 27 Aug, 2013 [facility] [place] [facility] [address] [id number] [place] [address]- 3646 20 Aug, 2013 [facility] [place] [facility] [address] [id number] [place] [address]- 3637 20 Aug, 2013 [facility] [place] [facility] [address] [id number] [place] [address]- 5270 18 Aug, 2013 [facility] [place] [facility] [address] [id number], [place] [address]- 2046 Jul, [facility] [address] [facility] [id number] [place] [address]- 1586 Jul, [facility] [address] [facility] [id number], [place] [address]- 7376 Jul, IMMUNIZATIONS No Known Immunizations SOCIAL HISTORY Never Assessed REASON FOR VISIT head lice PLAN OF CARE VITAL SIGNS MEDICATIONS Medication Instructions Dosage Frequency Start Date End Date Duration Status Sklice 0.5 % Externally Repeat application after 7 days saturate hair and scalp and leave on for 10 minutes and the rinse out Jun, Jun, 07 days Active RESULTS No Results PROCEDURES No Known procedures INSTRUCTIONS MEDICATIONS ADMINISTERED No Known Medications MEDICAL (GENERAL) HISTORY Type Description Date Medical History idiopathic intracranial hypertension Surgical History section 2009 Surgical History right shoulder surgery (scope) 2005 Hospitalization History surgery
--- OUTSIDE RECORDS SUMMARY | 2018-02-08 12:35 | XMS REPORT ---
Author Author MELANIE COPELAND Organization [facility] Address [address] [place] [address] Care Team Providers Care Automation Engineering Technician Name Role Phone MELANIE COPELAND Unavailable PROBLEMS Type Condition ICD9-CM Code PGL31-EG Code Onset Dates Condition Status SNOMED Code Problem History of migraine headaches Z86.69 Active 599441515 Problem Generalized abdominal pain R10.84 Active 524634851 Problem Allergic asthma, mild intermittent, uncomplicated J45.20 Active 786487385 Problem Otalgia of both ears H92.03 Active 063803683 Problem Slow transit constipation K59.01 Active 71996387 Problem Dyspepsia R10.13 Active 791957365 Problem Epigastric pain R10.13 Active 08962007 Problem Acute swimmer''s ear of right side H60.331 Active 39754097 Problem Seasonal allergic rhinitis, unspecified chronicity, unspecified trigger J30.2 Active 747614600 ALLERGIES No Information ENCOUNTERS Encounter Location Date Diagnosis [place] [id number] [place] [address] 74495- 0095 January, [place] [address] [place] [id number] [place] [address] 25969- 8962 Dec, Dental examination Z01.20 [place] [address] [place] [id number] [place] [address] 24377- 1790 Dec, Dental examination Z01.20 [place] [address] [place] [id number] [place] [address] 11381- 1913 Dec, [place] [address] 22279- 4564 Dec, Encounter for test Z32.00 [place] [address] 98901- 6770 Dec, [place] [address] [place] [id number] [place] [address] 24595- 6755 Nov, Dysfunction of both eustachian tubes H69.83 [place] [address] [place] [id number] [place] [address] 16568- 4998 Nov, Superior glenoid labrum lesion of right shoulder, initial encounter S43.431A [place] [address] 34540- 0310 Nov, Otalgia of both ears H92.03 [facility] [place] [address] [place] [id number] [place] [address] 02752 -0946 Nov, Bilateral otitis media with effusion H65.93 [place] [address] [place] [id number] [place] [address] 93736- 6881 Oct, Acute pain of right shoulder M25.511 [place] [address] [place] [id number] [place] [address] 86253- 9041 Oct, [place] [address] [place] [id number] [place] [address] 39458- 2828 Oct, Acute suppurative otitis media of left ear without spontaneous rupture of tympanic membrane, recurrence not specified H66.002 ; Exudative tonsillitis J03.90 and Sore throat J02.9 [place] [address] [place] [id number] [place] [address] 92637- 7117 Sep, Acute intractable headache, unspecified headache type R51 [facility] [place] [address] [place] [id number] [place] [address] 74273 -7176 Sep, Non-intractable vomiting with nausea, unspecified vomiting type R11.2 [place] [address] [place] [id number] [place] [address] 75646- 5751 Sep, Urinary tract infection without hematuria, site unspecified N39.0 [place] [address] [place] [id number] [place] [address] 88391- 1137 Sep, Dysuria R30.0 [place] [address] [place] [id number] [place] [address] 13640- 2550 Sep, Acute swimmer''s ear of right side H60.331 ; Slow transit constipation K59.01 and Hemorrhoids, unspecified hemorrhoid type K64.9 [place] [address] 29464- 8100 Aug, Acute midline low back pain without sciatica M54.5 [place] [address] 29267- 0860 Jun, Encounter for Nexplanon removal Z30.46 and Oral contraception initial prescription Z30.011 [facility] [place] [address] 10548 -8430 Jun, Seasonal allergic rhinitis, unspecified chronicity, unspecified trigger J30.2 [place] [address] 88823- 6086 Jun, [place] [address] 01931- 8721 Jun, Encounter for immunization Z23 [place] [address] 66732- 1746 Jun, [place] [address] 18072- 9219 May, [place] [address] 63964- 8356 Apr, Diarrhea, unspecified R19.7 ; Nausea with vomiting, unspecified R11.2 and RUQ pain R10.11 [place] [address] 14720- 9263 Apr, [facility] [place] [address] 68491 -2924 Apr, Gastroenteritis and colitis, viral A08.4 [place] [address] 62539- 9487 Mar, [facility] [address] [place] [id number] [place] [address] 27336 -2845 Mar, Finger laceration, initial encounter S61.219A [facility] [address] [place] [id number] [place] [address] 58679- 6224 Mar, Cough R05 and Acute seasonal allergic rhinitis due to pollen J30.1 [place] [address] 59983- 0788 Mar, Splenomegaly R16.1 [place] [address] 94225- 0591 Mar, Splenomegaly R16.1 [place] [address] [place] [id number] [place] [address] 12773- 2597 Feb, Epigastric pain R10.13 ; Generalized abdominal pain R10.84 and Dyspepsia R10.13 [place] [address] [place] [id number] [place] [address] 29182- 4465 Feb, Melanocytic nevus of face, other location D22.39 [facility] [place] [address] [place] [id number] [place] [address] 11367 -8658 Feb, Sore throat J02.9 and Acute nasopharyngitis (common cold) J00 [place] [address] [place] [id number] [place] [address] 03442- 7065 January, Acute gastritis without hemorrhage, unspecified gastritis type K29.00 [place] [address] [place] [id number] [place] [address] 89234- 0484 January, [facility] [address] [place] [id number] [place] [address] 89811 -7492 January, Sore throat J02.9 and Strep throat J02.0 [place] [address] [place] [id number] [place] [address] 00428- 3953 14 Oct, 2016 Acute intractable headache, unspecified headache type R51 [place] [address] [place] [id number] [place] [address] 06114- 6795 10 Oct, 2016 Dental examination Z01.20 [facility] [address] 49492 -0766 16 Sep, 2016 Costochondritis, acute M94.0 [place] [address] 44300- 3359 27 Aug, 2016 Acute midline low back pain without sciatica M54.5 [facility] [address] 26538- 2674 07 Jul, 2016 Sebaceous cyst of labia N90.7 [place] [address] 27317- 6454 25 Jun, 2016 Bronchitis J40 [place] [address] 75286- 0000 22 May, 2016 Encounter for immunization Z23 [place] [address] 95452- 3720 13 May, 2016 [place] [address] 33889- 7237 12 May, 2016 Seasonal allergic rhinitis due to pollen J30.1 [place] [address] 45386- 0411 02 Apr, 2016 Overweight E66.3 [place] [address] 27114- 6080 24 Feb, 2016 Arm pain, left M79.[address] Z97.5 [place] [address] 99219- 7807 20 Feb, 2016 Pain of left upper extremity M79.602 [place] [address] [place] [id number] [place] [address] 85587- 9334 10 Jan, 2016 History of migraine headaches Z86.69 and Acute intractable headache, unspecified headache type R51 [place] [address] [place] [id number] [place] [address] 37626- 6273 08 Oct, 2015 [facility] [address] 83380 -7848 02 Oct, 2015 Left otitis media H66.92 [place] [address] 52236- 1849 Sep, Overweight E66.3 [facility] [address] 23432 -7925 13 Sep, 2015 Upper respiratory tract infection, unspecified type 465.9 ; Nausea R11.0 ; Dizziness R42 ; Headache, unspecified headache type R51 and Allergic rhinitis, unspecified allergic rhinitis type J30.9 [place] [address] 75785- 4923 15 Aug, 2015 Vertigo R42 and Overweight E66.3 [facility] [address] 70663 -5916 10 Aug, 2015 Nonintractable migraine, unspecified migraine type G43.009 [place] [address] 95747- 6377 Jul, Overweight E66.3 and Nonintractable migraine, unspecified migraine type G43.009 [facility] [address] [id number] Jul, Dental examination Z01.20 [place] [address] [place] [id number] [place] [address] 38383- 2087 16 Jun, 2015 Need for meningococcus vaccine Z23 and Hepatitis A vaccination not up to date Z28.3 [place] [address] 48698- 6845 10 Jun, 2015 Encounter for immunization Z23 [place] [address] 99521- 9746 25 May, 2015 Headache 784.0 [place] [address] 19438- 3897 Apr, Sinusitis 473.9 [facility] [address] [place] [id number] [place] [address] 98574- 2848 Apr, Environmental allergies V15.09 ; Wheezing 786.07 and Sinusitis 473.9 [facility] [address] [place] [address] 48533- 5930 Apr, Nexplanon insertion V25.5 [facility] [address] [place] [id number] [place] [address] [id number] Mar, Dental examination V72.2 [facility] [address] [place] [id number] [place] [address] 18130- 2440 Feb, control counseling V25.09 [facility] [address] [place] [id number] [place] [address] 31710- 5514 Feb, Intracranial hypertension, benign 348.2 [facility] [address] [place] [id number] [place] [address] 17830- 2080 Feb, [facility] [address] [place] [id number] [place] [address] 50379- 7551 14 Dec, 2014 [facility] [address] [place] [id number] [place] [address] 07304- 1140 13 Dec, 2014 [facility] [address] [place] [address] 69974- 8480 Nov, [facility] [address] [place] [address] 69056- 7491 17 Nov, 2014 [facility] [address] [place] [address] 66333- 8998 11 Nov, 2014 [facility] [address] [place] [id number] [place] [address] 95886- 6459 11 Nov, 2014 [facility] [address] [place] [address] 729408- 3348 10 Nov, 2014 [facility] [address] [place] [id number] [place] [address] 63099- 2597 Nov, [facility] [place] [facility] [address] [id number] [place] [address]- 3627 Oct, [facility] [place] [facility] [address] [id number] [place] [address]- 8096 Oct, [facility] [place] [facility] [address] [facility] [id number] [place] [address]- 6077 Sep, [facility] [place] [facility] [address] [id number] [place] [address]- 5819 Sep, [facility] [place] [facility] [address] [id number] [place] [address]- 0711 Sep, [facility] [place] [facility] [address] [id number] [place] [address]- 3578 Sep, [facility] [place] [facility] [address] [id number] [place] [address]- 1879 Sep, [facility] [place] [facility] [address] [id number] [place] [address]- 6375 Sep, [facility] [place] [facility] [address] [id number] [place] [address]- 3059 Sep, [facility] [place] [facility] [address] [id number] [place] [address]- 7689 Sep, [facility] [place] [facility] [address] [id number] [place] [address]- 4418 Aug, [facility] [place] [facility] [address] [id number] [place] [address]- 0218 Aug, [facility] [place] [facility] [address] [id number] [place] [address]- 6512 Aug, [facility] [place] [facility] [address] [id number] [place] [address]- 2058 Aug, [facility] [place] [facility] [address] [id number] [place] [address]- 2882 Aug, [facility] [place] [facility] [address] [id number] [place] [address]- 7793 Aug, [facility] [place] [facility] [address] [id number] [place] [address]- 3903 Aug, [facility] [place] [facility] [address] [id number] [place] 9634 Aug, [facility] [place] [facility] [address] [id number] [place] [address]- 4190 Jul, [facility] [place] [facility] [address] [id number] [place] [address]- 3720 Jul, [facility] [place] [facility] [address] [id number] [place] [address]- 6710 Jul, [facility] [place] [facility] [address] [id number] [place] [address]- 8085 Jul, [facility] [place] [facility] [address] [id number] [place] [address]- 6687 Jul, [facility] [place] [facility] [address] [id number] [place] [address]- 3343 Jun, [facility] [place] [facility] [address] [id number] [place] [address]- 4001 Jun, [facility] [place] [facility] [address] [id number] [place] [address]- 1338 Jun, [facility] [place] [facility] [address] [id number] [place] [address]- 3428 Jun, [facility] [place] [facility] [address] [id number] [place] [address]- 4662 Jun, [facility] [place] [facility] [address] [id number] [place] 5982 Apr, [facility] [place] [facility] [address] [id number] [place] [address]- 4793 Apr, [facility] [place] [facility] [address] [id number] [place] [address]- 1442 Apr, [facility] [place] [facility] [address] [id number] [place] [address]- 1660 Apr, [facility] [place] [facility] [address] [id number] [place] [address]- 1866 Apr, [facility] [place] [facility] [address] [id number] [place] [address]- 0817 Mar, [facility] [place] [facility] [address] [id number] [place] [address]- 0576 Mar, [facility] [place] [facility] [address] [id number] [place] [address]- 2410 Mar, [facility] [place] [facility] [address] [id number] [place] [address]- 1210 Mar, [facility] [place] [facility] [address] [id number] [place] [address]- 8825 Mar, [facility] [place] [facility] [address] [id number] [place] [address]- 2323 Feb, [facility] [place] [facility] [address] [id number] [place] [address]- 5370 Feb, [facility] [place] [facility] [address] [id number] [place] [address]- 6698 January, [facility] [place] [facility] [address] [id number] [place] [address]- 8276 January, [facility] [place] [facility] [address] [id number] [place] [address]- 6284 Dec, [facility] [place] [facility] [address] [id number] [place] [address]- 5401 Dec, [facility] [place] [facility] [address] [id number] [place] [address]- 4146 Dec, [facility] [place] [facility] [address] [id number] [place] [address]- 9104 Nov, [facility] [place] [facility] [address] [id number] [place] [address]- 0207 Nov, [facility] [place] [facility] [address] [id number] [place] [address]- 0392 Nov, [facility] [place] [facility] [address] [id number] [place] [address]- 7786 Nov, [facility] [place] [facility] [address] [id number] [place] [address]- 3386 Nov, [facility] [place] [facility] [address] [id number] [place] [address]- 5501 Oct, [facility] [place] [facility] [address] [id number] [place] [address]- 2976 Oct, [facility] [place] [facility] [address] [id number] [place] [address]- 8116 Oct, [facility] [place] [facility] [address] [id number] [place] [address]- 4193 Oct, [facility] [place] [facility] [address] [id number] [place] [address]- 4364 Oct, [facility] [place] [facility] [address] [id number] [place] [address]- 7867 Oct, [facility] [place] [facility] [address] [id number] [place] [address]- 0467 Oct, [facility] [place] [facility] [address] [id number] [place] [address]- 7605 Oct, [facility] [place] [facility] [address] [id number] [place] [address]- 6318 Oct, [facility] [place] [facility] [address] [id number] [place] [address]- 1741 Sep, [facility] [place] [facility] [address] [id number] [place] [address]- 8143 Sep, [facility] [place] [facility] [address] [id number] [place] [address]- 3801 Sep, [facility] [address] [id number] [place] [address]- 1592 Sep, [facility] [place] [facility] [address] [id number] [place] [address]- 2457 Sep, [facility] [place] [facility] [address] [id number] [place] [address]- 8581 Sep, [facility] [place] [facility] [address] [id number] [place] [address]- 5440 Sep, [facility] [place] [facility] [address] [id number] [place] [address]- 1236 Sep, [facility] [place] [facility] [address] [id number] [place] [address]- 8714 Aug, [facility] [place] [facility] [address] [id number] [place] [address]- 8679 Aug, [facility] [place] [facility] [address] [id number] [place] [address]- 6001 Aug, [facility] [place] [facility] [address] [id number] [place] [address]- 2590 Aug, [facility] [place] [facility] [address] [id number] [place] [address]- 4131 Aug, [facility] [place] [facility] [address] [id number] [place] [address]- 7475 27 Aug, 2013 [facility] [place] [facility] [address] [id number], [place] [address]- 5926 20 Aug, 2013 [facility] [place] [facility] [address] [id number] [place] [address]- 9150 20 Aug, 2013 [facility] [place] [facility] [address] [id number] [place] [address]- 4803 18 Aug, 2013 [facility] [place] [facility] [address] [id number], [place] [address]- 4162 10 Jul, 2013 [facility] [place] [facility] [address] [id number], [place] [address]- 0256 Jul, [facility] [address] [facility] [id number] [place] [address]- 6728 Jul, IMMUNIZATIONS No Known Immunizations SOCIAL HISTORY Never Assessed REASON FOR VISIT Migraines PLAN OF CARE VITAL SIGNS MEDICATIONS Unknown Medications RESULTS No Results PROCEDURES No Known procedures INSTRUCTIONS MEDICATIONS ADMINISTERED No Known Medications MEDICAL (GENERAL) HISTORY Type Description Date Medical History idiopathic intracranial hypertension Surgical History section 2009 Surgical History right shoulder surgery (scope) 2006 Hospitalization History surgery
[2018-02-08 13:34] VITALS: BP 126/76
[2018-02-08 14:02] LABS: BASOPHILS % (AUTO) 0 % (0-10); EOSINOPHILS % (AUTO) 0 % (0-10); HEMATOCRIT 36 % (35-52); HEMOGLOBIN 12.5 G/DL (11.5-16.0); LYMPHOCYTES # (AUTO) 1.9 X 10^3 (1.0-4.0); LYMPHOCYTES % (AUTO) 18 % (12-44); MEAN CORPUSCULAR HEMOGLOBIN 29 PG (25-34); MEAN CORPUSCULAR HGB CONC 35 G/DL (32-36); MEAN CORPUSCULAR VOLUME 85 FL (80-99); MEAN PLATELET VOLUME 12.7 FL (7.4-10.4); MONOCYTES # (AUTO) 0.5 X 10^3 (0.0-1.0); MONOCYTES % (AUTO) 5 % (0-12); NEUTROPHILS # (AUTO) 8.2 X 10^3 (1.8-7.8); NEUTROPHILS % (AUTO) 77 % (42-75); PLATELET COUNT 275 10^3/uL (130-400); RED BLOOD COUNT 4.26 10^6/uL (4.35-5.85); RED CELL DISTRIBUTION WIDTH 12.3 % (10.0-14.5); WHITE BLOOD COUNT 10.6 10^3/uL (4.3-11.0)
[2018-02-08] MEDS ORDERED: ceFAZolin 1,000 MG (ANCEF) VIAL ONE (15:12)
[2018-02-08] MEDS ORDERED: NS (IVPB) 50 ML ONE (15:12)
[2018-02-08] MEDS ORDERED: fentaNYL INJECTION 100 MCG/2 ML AMP ONE (15:33)
[2018-02-08] MEDS ORDERED: proPOfol 200 MG/20 ML (DIPRIVAN) VIAL IV ONE (15:33)
[2018-02-08] MEDS ORDERED: MIDAZOLAM 2 MG/2 ML (VERSED) VIAL ONE (15:33)
[2018-02-08] MEDS ORDERED: SEVOFLURANE (ULTANE) 15 ML INHAL SOLN ONE (15:33)
[2018-02-08] MEDS ORDERED: LIDOCAINE PF 2% 5 ML (XYLOCAINE) VIAL ONE (15:33)
[2018-02-08] MEDS ORDERED: LACTATED RINGERS 1,000 ML IV PRN (16:11)
--- NOTE | 2018-02-08 16:18 | Progress Note-Pre Operative ---
Pre-Operative Progress Note H&P Reviewed The H&P was reviewed, patient examined and no changes noted. Date Seen by Provider: February 08, 2018 Time Seen by Provider: 16:18 Date H&P Reviewed: February 08, 2018 Time H&P Reviewed: 16:18 Pre-Operative Diagnosis: Missed VALERI HAMLIN MD February 08, 2018 4:18 pm
[2018-02-08] MEDS ORDERED: D5 LR IV SOLUTION 1,000 ML IV SCH (16:19)
--- NOTE | 2018-02-08 16:19 | Progress Note-Post Operative ---
Post-Operative Progess Note Surgeon (s)/Hygiene Teacher (s) Surgeon VALERI HAMLIN MD Hygiene Teacher: None Pre-Operative Diagnosis Missed Post-Operative Diagnosis Same with pathology pending Procedure & Operative Findings Date of Procedure 02/08/18 Procedure Performed/Findings D&C for first trimester missed Anesthesia Type GETA Estimated Blood Loss Estimated blood loss (mL): 100cc Specimens/Packing Specimens Removed Uterine contents/POC Packing: None VALERI HAMLIN MD February 08, 2018 16:19
[2018-02-08] MEDS ORDERED: OXYC-197 PO (16:21)
--- NOTE | 2018-02-08 16:23 | Discharge Instructions ---
Discharge Instructions Discharge Medications New, Converted or Re-Newed RX: RX on Chart Patient Instructions Patient Instructions: AAS DIRECTED Return to The Hospital For: As directed Activity & Diet Discharge Diet: No Restrictions Activity as Tolerated: No Orders-Post D/C & Referrals Follow Up Appt: Call to make follow up appt. for patient in 2 weeks. Activity: Rest for 24 hours, than as tolerated. Diet: As tolerated-Clear Liquids only if nauseated. Tomorrow, may shower or tub bathe as desired. No driving for 24 hours, no alcoholic beverages for 24 hours, and nothing per vagina (no tampons, douching, or intercoUrse) for 2 weeks. Patient to return to the clinic as soon as possible for: Temperature greater than 101F, Severe Pain, Foul discharge from incision or vagina, Excessive Bleeding (more than a period). VALERI HAMLIN MD February 08, 2018 4:23 pm
[2018-02-08] MEDS ORDERED: KETOROLAC 30 MG/ML VIAL IVP ONE (16:30)
[2018-02-08] MEDS ORDERED: MEPERIDINE (DEMEROL) INJ 100 MG/ML IM ONE (16:30)
[2018-02-08] MEDS ORDERED: ONDANSETRON 4 MG/2 ML (SDV) Z0FRAN IVP PRN ×2 (16:30→17:00)
[2018-02-08] MEDS ORDERED: PROMETHAZINE INJ 25 MG/ML (PHENERGAN) AMP IM ONE (16:30)
[2018-02-08] MEDS ORDERED: oxyCODONE/APAP 5/325MG (PERCOCET 5) TABLET PO PRN (16:30)
[2018-02-08] MEDS ORDERED: ONDANSETRON 4 MG/2 ML (SDV) Z0FRAN ONE (16:50)
[2018-02-08] MEDS ORDERED: morphine INJ 10 MG/ML 1ML (SYR OR VIAL) ONE (16:50)
--- NOTE | 2018-02-08 16:55 | Anesthesia-General Post-Op ---
General Patient Condition Mental Status/LOC: Same as Preop Cardiovascular: Satisfactory Nausea/Vomiting: Absent Respiratory: Satisfactory Pain: Controlled Complications: Absent Post Op Complications Complications None Follow Up Care/Instructions Patient Instructions None needed. Anesthesia/Patient Condition Patient Condition Patient is doing well, no complaints, stable vital signs, no apparent adverse anesthesia problems. No complications reported per nursing. GERARDO MOSES CRNA February 08, 2018 16:55
[2018-02-08] MEDS ORDERED: MEPERIDINE (DEMEROL) INJ 50 MG/ML IVP PRN (17:00)
[2018-02-08] MEDS ORDERED: morphine INJ 10 MG/ML 1ML (SYR OR VIAL) IVP PRN (17:00)
[2018-02-08 17:40] VITALS: BP 113/66
[2018-02-08] MEDS ORDERED: oxyCODONE/APAP 5/325MG (PERCOCET 5) TABLET ONE (17:49)
[2018-02-08 18:10] VITALS: BP 126/75
[2018-02-08 18:40] VITALS: BP 130/87
[2018-02-08 18:59] VITALS: BP 130/87
--- NOTE | 2018-02-09 01:07 | OPERATIVE REPORT ---
DATE OF SERVICE: 02/08/2018 PREOPERATIVE DIAGNOSIS: First trimester missed . POSTOPERATIVE DIAGNOSIS: First trimester missed with pathology pending. OPERATIVE PROCEDURE: D and C for first trimester missed . OPERATIVE DESCRIPTION: With the patient in the supine position under satisfactory general anesthesia, she was repositioned in dorsal lithotomy position in the Juma stirrups and prepped and draped in the usual fashion for vaginal surgery. The urinary bladder was drained with the straight catheter. A weighted speculum was placed in the posterior fornix of vagina. The cervix was exposed and grasped anteriorly with single tooth tenaculum. The uterus was sounded to 14 cm with uterine sound. The cervix was then serially dilated with Waldo dilators to accommodate a #10 curved sucking curette, which was then introduced and using bulb suction, the endometrial cavity was curettaged with removal of a large amount of trophoblastic and decidual appearing tissue, blood clot, amniotic fluid, products of conception and debris. The endometrial cavity was then sharply curettaged in all 4 quadrants to good uterine cry. The curved suction curette was reintroduced and all blood clot and debris evacuated from the uterus. The tenaculum at this point was removed. There was some bleeding from one of the puncture sites. This was touched with silver nitrate to effect hemostasis. There was no bleeding from the cervical os. The uterus was contracted nicely and had decreased in size from approximately 12 week size to around 8 to 10 week size after the procedure. Blood loss was around 100 mL. Sponge and needle counts were correct at the end of the procedure. The patient was uneventfully now awakened from her anesthesia and transferred to the recovery room in stable condition with plans for discharge home [facility]. Job ID: [id number] DocumentID: [id number] Dictated Date: 02/08/2018 16:42:08 Senior Marketing Engineer Date: 02/08/2018 23:18:45 Dictated By: VALERI HAMLIN MD
== END 2018-02-08 18:55 | disposition home or self-care (01) ==
LOC: SDC 12:24
PROVIDERS: ATTEND Obstetrics & Gynecology
DX: O02.1 Missed abortion (principal)
CPT/HCPCS: 36415; 84702; 85025; 87081; 88305

== ENCOUNTER → 2019-06-20 | Outpatient (CLI) | payer OTHER ==
[~2019-06-20] MED LIST changes: +OXYC1TAB87 PO
--- NOTE | 2019-06-20 13:46 | Diagnostic Imaging Report ---
EXAMINATION: Magnetic resonance imaging of the right shoulder without contrast. DATE: June 20, 2019. COMPARISON: None. HISTORY: 28-year-old female, right shoulder pain. TECHNIQUE: Magnetic Resonance Imaging sequences were performed of the shoulder without contrast. FINDINGS: ROTATOR CUFF, LIGAMENTS, TENDONS, AND MUSCLES: The supraspinatus, infraspinatus, teres minor, and subscapularis tendons and muscles are intact. There is normal rotator cuff muscle bulk and signal. LONG HEAD OF BICEPS: The biceps labral attachment and long head of the biceps tendon is intact. The long head of the biceps tendon is normally positioned within the bicipital groove. GLENOHUMERAL JOINT: The humeral head is well positioned relative to the glenoid. The labrum is grossly intact. There is no identified paralabral cyst. The articular cartilage is grossly intact. There is no joint effusion. ACROMIOCLAVICULAR JOINT: The acromioclavicular joint is normally aligned. The coracoclavicular and coracoacromial ligaments are intact. There are no degenerative changes of the acromioclavicular joint. BONE: The bones all have normal configuration. The bone marrow signal is within normal limits. Specifically, negative for fracture, osteomyelitis, osteonecrosis, or marrow replacing process. BURSAE AND SOFT TISSUES: The bursae and soft tissue surrounding the shoulder are unremarkable. IMPRESSION: 1. Unremarkable MRI of the right shoulder. Dictated by: Dictated on workstation # [id number]
== END ==
LOC: RAD 08:37
PROVIDERS: ATTEND Nurse Practitioner Community Health
DX: M25.511 Pain in right shoulder (principal)
CPT/HCPCS: 73221

== ENCOUNTER 2021-04-14 14:17 | Emergency (ER) | payer BC, OTHER ==
[~2021-04-14] VITALS: Ht 162.5 cm; Wt 97.9 kg
[2021-04-14] MEDS ORDERED: KETOROLAC 30 MG/ML VIAL IVP ONE (15:15)
[2021-04-14] MEDS ORDERED: LACTATED RINGERS 1,000 ML IV SCH (15:15)
[2021-04-14] MEDS ORDERED: ONDANSETRON 4 MG/2 ML (SDV) Z0FRAN IVP ONE (15:15)
[2021-04-14] MEDS ORDERED: LACTATED RINGERS 1,000 ML IV ONE (15:16)
[2021-04-14 15:32] LABS: BASOPHILS % (AUTO) 0 % (0-10); EOSINOPHILS % (AUTO) 0 % (0-10); HEMATOCRIT 37 % (35-52); HEMOGLOBIN 12.5 g/dL (11.5-16.0); LYMPHOCYTES # (AUTO) 1.2 X 10^3 (1.0-4.0); LYMPHOCYTES % (AUTO) 19 % (12-44); MEAN CORPUSCULAR HEMOGLOBIN 28 pg (25-34); MEAN CORPUSCULAR HGB CONC 34 g/dL (32-36); MEAN CORPUSCULAR VOLUME 84 fL (80-99); MEAN PLATELET VOLUME 10.9 fL (9.0-12.2); MONOCYTES # (AUTO) 0.5 X 10^3 (0.0-1.0); MONOCYTES % (AUTO) 8 % (0-12); NEUTROPHILS # (AUTO) 4.4 X 10^3 (1.8-7.8); NEUTROPHILS % (AUTO) 73 % (42-75); PLATELET COUNT 355 10^3/uL (130-400); WHITE BLOOD COUNT 6.1 10^3/uL (4.3-11.0)
[2021-04-14 15:33] LABS: POTASSIUM 3.6 MMOL/L (3.6-5.0)
[2021-04-14 15:35] LABS: TOTAL PROTEIN 7.7 GM/DL (6.4-8.2)
[2021-04-14 15:37] LABS: BILIRUBIN,TOTAL 0.4 MG/DL (0.1-1.0)
[2021-04-14 15:39] LABS: CREATININE SERUM 0.71 MG/DL (0.60-1.30)
--- NOTE | 2021-04-14 16:00 | Diagnostic Imaging Report ---
INDICATION: COVID positive patient with chest discomfort. PA chest obtained at 3:42 p.m. FINDINGS: There is no prior study for comparison. The heart is normal in size. There is some minimal infiltrate versus atelectasis in the right medial base. There is no pneumothorax or pleural fluid. IMPRESSION: Minimal infiltrate versus atelectasis in the right medial base. Otherwise, negative chest. Suggest follow-up as clinically warranted. Dictated by: Dictated on workstation # [id number]
--- NOTE | 2021-04-14 16:08 | ED General ---
General Chief Complaint: Cough/Cold/Flu Symptoms Stated Complaint: COVID+;SOA Nursing Triage Note: COVID POSITIVE ON March, SX BEGAN ON March. PATINE C/O N/V/D, SOB WITH EXERTION NO FEVER. Source of Information: Patient Exam Limitations: No Limitations (WEI MOSS APRN) History of Present Illness Date Seen by Provider: Apr 14, 2021 Time Seen by Provider: 16:05 Initial Comments Covid positive on the , nausea vomiting diarrhea short of breath with exertion since then. Timing/Duration: 1-2 Days Severity: Moderate Associated Systoms: Cough, Nausea/Vomiting (WEI MOSS APRN) Allergies and Home Medications Allergies Coded Allergies: cephalexin (Verified Allergy, Unknown, 05/25/17) cephalothin (Verified Allergy, Unknown, 12/04/06) Home Medications Oxycodone HCl/Acetaminophen 1 Each Tablet, 1-2 EACH PO Q4H Prescribed by: VALERI DELCID on 02/08/18 1621 Patient Home Medication List Home Medication List Reviewed: Yes (WEI MOSS APRN) Review of Systems Review of Systems Constitutional: see HPI, malaise, weakness EENTM: see HPI Respiratory: no symptoms reported Cardiovascular: no symptoms reported Genitourinary: no symptoms reported Musculoskeletal: no symptoms reported Skin: no symptoms reported Psychiatric/Neurological: No Symptoms Reported Hematologic/Lymphatic: No Symptoms Reported (WEI MOSS APRN) Past Hyckxhz-Gcrzpm-Mpmuog Hx Patient Social History Tobacco Use?: No Use of E-Cig and/or Vaping dev: No Substance use?: No Alcohol Use?: No Pt feels they are or have been: No (WEI MOSS APRN) Immunizations Up To Date Influenza Vaccine Up-to-Date: Yes; Up-to-Date (WEI MOSS APRN) Past Medical History Surgeries: Yes (CYST REMOVED FROM UNDER LEFT ARM. RIGHT SHOULDER SCOPE) Section Respiratory: No Cardiac: No Neurological: No Reproductive Disorders: No Genitourinary: No Gastrointestinal: No Musculoskeletal: No Endocrine: No HEENT: No Cancer: No Psychosocial: No Blood Disorders: No (WEI MOSS APRN) Physical Exam Vital Signs Vital Signs - First Documented 04/14/21 04/14/21 15:10 15:29 Temp 36.1 Pulse 84 Resp 18 B/P (MAP) 131/92 (105) Pulse Ox 96 O2 Delivery Room Air (RUBI KUHN MD) Vital Signs Capillary Refill : (WEI MOSS APRN) Height, Weight, BMI Height: 5'0.00" Weight: 203lbs. 0.0oz. 92.433952nl; 37.00 BMI Method:Stated General Appearance: No Apparent Distress, WD/WN, Other ( Heart rate 84 blood pressure is adequate oxygen 99% room air) Eyes: Bilateral Eye Normal Inspection, Bilateral Eye PERRL, Bilateral Eye EOMI HEENT: PERRL/EOMI, TMs Normal Neck: Full Range of Motion, Normal Inspection Respiratory: No Accessory Muscle Use, No Respiratory Distress Cardiovascular: Regular Rate, Rhythm, Normal Peripheral Pulses Gastrointestinal: Normal Bowel Sounds, Non Tender, Soft Neurologic/Psychiatric: Alert, Oriented x3 Skin: Normal Color, Warm/Dry (WEI MOSS APRN) Progress/Results/Core Measures Suspected Sepsis SIRS Temperature: Pulse: 84 Respiratory Rate: 18 Laboratory Tests 04/14/21 15:10: White Blood Count 6.1 Blood Pressure 131 /92 Mean: 105 Laboratory Tests 04/14/21 15:10: Creatinine 0.71, Platelet Count 355, Total Bilirubin 0.4 (WEI MOSS APRN) Results/Orders Lab Results Laboratory Tests Test 04/14/21 15:10 Range/Units White Blood Count 6.1 4.3-11.0 10^3/uL Red Blood Count 4.42 3.80-5.11 10^6/uL Hemoglobin 12.5 11.5-16.0 g/dL Hematocrit 37 35-52 % Mean Corpuscular Volume 84 80-99 fL Mean Corpuscular Hemoglobin 28 25-34 pg Mean Corpuscular Hemoglobin Concent 34 32-36 g/dL Red Cell Distribution Width 13.0 10.0-14.5 % Platelet Count 355 130-400 10^3/uL Mean Platelet Volume 10.9 9.0-12.2 fL Immature Granulocyte % (Auto) 0 % Neutrophils (%) (Auto) 73 42-75 % Lymphocytes (%) (Auto) 19 12-44 % Monocytes (%) (Auto) 8 0-12 % Eosinophils (%) (Auto) 0 0-10 % Basophils (%) (Auto) 0 0-10 % Neutrophils # (Auto) 4.4 1.8-7.8 X 10^3 Lymphocytes # (Auto) 1.2 1.0-4.0 X 10^3 Monocytes # (Auto) 0.5 0.0-1.0 X 10^3 Eosinophils # (Auto) 0.0 0.0-0.3 10^3/uL Basophils # (Auto) 0.0 0.0-0.1 10^3/uL Immature Granulocyte # (Auto) 0.0 0.0-0.1 10^3/uL Sodium Level 143 135-145 MMOL/L Potassium Level 3.6 3.6-5.0 MMOL/L Chloride Level 101 98-107 MMOL/L Carbon Dioxide Level 23 21-32 MMOL/L Anion Gap 19 H 5-14 MMOL/L Blood Urea Nitrogen 15 7-18 MG/DL Creatinine 0.71 0.60-1.30 MG/DL Estimat Glomerular Filtration Rate 95 BUN/Creatinine Ratio 21 Glucose Level 115 H 70-105 MG/DL Calcium Level 9.0 8.5-10.1 MG/DL Corrected Calcium 9.0 8.5-10.1 MG/DL Total Bilirubin 0.4 0.1-1.0 MG/DL Aspartate Amino Transf (AST/SGOT) 20 5-34 U/L Alanine Aminotransferase (ALT/SGPT) 28 0-55 U/L Alkaline Phosphatase 63 40-136 U/L C-Reactive Protein High Sensitivity 4.45 H 0.00-0.50 MG/DL Total Protein 7.7 6.4-8.2 GM/DL Albumin 4.0 3.2-4.5 GM/DL Serum Test, Qualitative NEGATIVE NEGATIVE (RUBI KUHN MD) Vital Signs/I&O 04/14/21 04/14/21 04/14/21 15:10 15:29 16:15 Temp 36.1 Pulse 84 72 Resp 18 18 B/P (MAP) 131/92 (105) 107/65 (105) Pulse Ox 96 99 O2 Delivery Room Air Room Air (RUBI KUHN MD) Vital Signs/I&O Capillary Refill : (WEI MOSS APRN) Blood Pressure Mean: 105 Departure Impression Primary Impression: COVID-19 Disposition: 01 HOME, SELF-CARE Condition: Stable Departure-Patient Inst. Decision time for Depature: 16:07 (WEI MOSS APRN) Referrals: NO,LOCAL PHYSICIAN (PCP) Primary Care Physician MELANIE COPELAND (Family) Primary Care Physician Patient Instructions: COVID-19 (DC) Add. Discharge Instructions: All discharge instructions reviewed with patient and/or family. Voiced understanding. Work/School Note: Work Release Form Date Seen in the Emergency Department: Apr 14, 2021 Return to Work: Apr 16, 2021 ATTENDING PHYSICIAN NOTE: I was physically present as attending physician in the emergency department during the care of this patient, but I was not directly involved in the decision making or delivery of care for this patient. (RUBI KUHN MD) WEI MOSS APRN Apr 14, 2021 16:07 RUBI KUHN MD Apr 15, 2021 20:43
[2021-04-14 16:15] VITALS: BP 107/65
== END 2021-04-14 16:24 | disposition home or self-care (01) ==
LOC: EDUNIT# 14:17 → ER 14:19
DX: U07.1 COVID-19 (principal)
CPT/HCPCS: 36415; 71045; 80053; 84703; 85025; 86141